=== PATIENT | female | born 1960 | race Caucasian/White ===

== ENCOUNTER 2023-09-26 10:32 | Observation (INO) ==
[2023-09-26 11:12] LABS: Hemoglobin 13.9 g/dl (12.0-16.0); Mean Corpuscular Hemoglobin 26.8 pg (25.0-34.0); Mean Corpuscular Hgb Conc 31.6 g/dL (32.0-36.0); Mean Corpuscular Volume 84.9 fL (80.0-100.0); Mean Platelet Volume 10.7 fL (9.4-12.4); Platelet Count 217 K/uL (130-400); RDW Coefficient of Variation 17.8 % (11.5-14.5); RDW Standard Deviation 53.7 fL (36.4-46.3); Red Blood Count 5.18 M/uL (4.20-5.40); White Blood Count 4.46 K/ul (4.8-10.8)
--- NOTE | 2023-09-26 11:12 | XRay Report ---
XR chest 1V portable HISTORY: stroke alert COMPARISON: None. FINDINGS: The lungs are clear. The cardiac silhouette is top normal in size. No pleural effusions. No pneumothorax. No acute fractures. There are metallic suture coils within the left upper quadrant. Pr ior cholecystectomy. IMPRESSION: No acute process. ACT 112: Negative or not required by law. Electronically signed by: James Hanks M.D. 09/26/2023 11:11 AM
[2023-09-26 11:18] LABS: Partial Thromboplastin Ratio 0.9; Partial Thromboplastin Time 24 Seconds (21-31); Prothrombin Time 10.6 Seconds (9.0-12.0)
[2023-09-26 11:26] LABS: Albumin Globulin Ratio 1.2 (0.9-2); Albumin Level 4.4 gm/dl (3.4-5.0); BUN Creatinine Ratio 15.7 (10-20); Bilirubin,Total 0.7 mg/dl (0.2-1.0); Calcium 9.8 mg/dl (8.6-10.3); Creatinine Clr Calc Pharmacy 92.8 ml/min; Est GFR (African American) 106.1 ml/min; Est GFR (Non-African American) 91.6 ml/min; Globulin 3.6 gm/dl (2.5-4.0); Potassium 4.4 mmol/L (3.5-5.1)
--- NOTE | 2023-09-26 11:34 | CT Scan Report ---
CT OF THE HEAD WITHOUT CONTRAST CLINICAL HISTORY: Neuro deficit, acute, stroke suspected COMPARISON STUDY: No previous studies for comparison. CT DOSE: 625.8 mGy.cm TECHNIQUE: Helical axial images of the head were obtained without IV contrast. Automated exposure con trol was utilized for the study. A dose lowering technique was utilized adhering to the principles o f ALARA. FINDINGS: No acute intracranial hemorrhage, midline shift or mass effect is present. The ventricular system is unremarkable. The basal cisterns are patent. No extra-axial collections are present. There are no findings to suggest acute dural sinus thrombosis or acute territorial infarct. No significant calvarial abnormalities are present. Visualized portions of the sinuses and mastoid air cells are jeremy ar. IMPRESSION: No acute intracranial findings. ACT 112: Negative or not required by law. Electronically signed by: Nixon Tang M.D. 09/26/2023 11:33 AM
--- NOTE | 2023-09-26 11:34 | Emergency Department Note ---
Impression & Plan Transient confusion, Right leg pain, High serum chloride ED Provider Note NAME: GILDARDO KEANE AGE: 62 SEX: F : 1960 ARRIVES VIA: Walk-In INFORMANT: Patient ED PROVIDER(S): Jostin Palacio DO CHIEF COMPLAINT: Confusion HPI: Patient is a 62-year-old female who presents to the ER for 2 episodes of confusion. Symptoms initially started 2 days ago when she had a headache and diffuse paresthesias. She was having trouble getting her words out and this lasted for about a minute to 2 and then resolved. She felt weak all over. Today while she was driving after leaving appointment at [facility] she can get a headache and then did not know where she was going and what she was doing. This resolved shortly and consequently she came in. She never had any focal weakness of her arms or legs. No chest pain or shortness of breath. No belly pain. No dysuria, urgency, or frequency. No other exacerbating or remitting factors. ADDITIONAL HISTORY OBTAINED: Per HPI Chronic Medical/Social Conditions Affecting Care: Per HPI PAST MEDICAL HISTORY:See Below PAST SURGICAL HISTORY:See Below FAMILY HISTORY:See Below SOCIAL HISTORY:See Below HOME MEDICATIONS:See Below ALLERGIES:See Below VITALS:See Below PHYSICAL EXAMINATION: GENERAL: Sitting up in bed, alert, well appearing, well nourished, no distress, non-toxic EYE EXAM: normal conjunctiva. PERRL and EOM's intact. OROPHARYNX: no exudate, no erythema, lips, buccal mucosa, and tongue normal and mucous membranes are moist NECK: supple, no nuchal rigidity, no adenopathy, non-tender LUNGS: Clear to auscultation. Normal chest wall mechanics HEART: no murmurs, S1 normal and S2 normal ABDOMEN: abdomen soft, non-tender, normo-active bowel sounds, no masses, no rebound or guarding. BACK: Back is symmetrical on inspection and there is no deformity, no midline tenderness, no CVA tenderness. SKIN: no rashes and no bruising UPPER EXTREMITIES: upper extremities are grossly normal. LOWER EXTREMITIES: No pitting edema. NEURO EXAM: Normal sensorium, cranial nerves II-XII intact, normal speech, no weakness of arms, weakness with flexion extension of bilateral hips 4/5 bilaterally which is chronic per. No drift. Finger to nose intact. Gross sensation intact. MEDICAL DECISION MAKING: Patient is a 62-year-old female who presents ER for above-stated complaint. IV was established blood work was obtained. Labs show mild leukopenia at 4.4 thousand. No significant anemia. INR was unremarkable. BMP with slightly elevated chloride at 108. LFTs bilirubin and magnesium was unremarkable. Troponin was negative. UA was unremarkable. CT angios of the head and neck were negative. Based on her symptoms discussed the case with the hospitalist for further evaluation management treatment. Consults/Care Managements Discussions: Per [facility] Triage Nursing notes reviewed. Limited review of prior medical records performed Vital Signs: reviewed and remarkable for hypertension Differential diagnosis: Differential Diagnosis includes but is not limited to ischemic Stroke, hemorrhagic stroke, bells palsy, mass, neoplasm, migraine headache, seizure, subarachnoid hemorrhage, TIA, and transient global amnesia. ER treatment provided: See below Diagnostics interpreted by me include EKG and cardiac monitoring as listed below: -Cardiac Monitoring: An order was placed for continuous cardiac monitoring. The monitor shows a rate of 70 with sinus rhythm. -ECG: Sinus rhythm rate 67 Normal axis No PVCs QTc 414 -Laboratory studies:Interpreted by me as stated above in MDM and shown below. Imaging studies: Xrays: As interpreted by me: Portable AP upright 1 view the chest shows no focal infiltrate CTs show: CT images of the head neck were negative. Venous Doppler was negative. Procedures:none Critical Care: None Past Med/Surg History Medical History (Updated 09/26/23 @ 17:44 by Jostin Palacio DO) Fibroids, submucosal Intestinal postoperative nonabsorption Pure hypercholesterolemia Obesity History of hepatitis A Chronic fatigue syndrome Degenerative disc disease, thoracic Vitamin B12 deficiency Vitamin D deficiency H/O gastric bypass B12 and iron supplementation Iron (Fe) deficiency anemia Surgical History (Updated 09/26/23 @ 16:05 by Becky Kearney PA-C) S/P gastric bypass S/P laparotomy S/P colon resection S/P cholecystectomy History of appendectomy History of hip replacement Bilateral hip replacements. Total knee replacement status Bilateral knee replacements. Family History Other Cancer Diabetes Stroke Social History Smoking Status: Never smoker Hx Alcohol Use: Yes Alcohol type: wine Hx Substance Use: Yes Prescribed Medications Comment: gummies for sleep, pain Non-Prescribed Medications: Marijuana Preferred Language: Ecuadorean Communication Ability: Effective Bat Person Required: No Beliefs That Will Affect Care: None Current Living Situation: Spouse Other Information That Helps Us Care for You: No Feels Safe at Home: Yes Safety Concerns: Feels Safe At This Time Allergies Allergies Allergy/AdvReac Type Severity Reaction Status Date / Time azithromycin Allergy Unknown Rash Verified 09/26/23 16:10 ciprofloxacin Allergy Unknown Unknown Verified 09/26/23 16:10 Sulfa (Sulfonamide Allergy Unknown Unknown Unverified 09/26/23 16:10 Antibiotics) Home Meds Home Medications Medication Instructions Recorded Confirmed semaglutide (weight loss) 2.4 2.4 mg subcut WK 09/26/23 09/26/23 mg/0.75 mL subcutaneous pen injector (Wegovy) sennosides 8.6 mg capsule (senna) 8.6 mg PO HS 09/26/23 09/26/23 Results & Data (ED) Vital Signs Vital Signs - 24 hr 09/26/23 10:36 09/26/23 11:30 09/26/23 12:20 Temperature 36.3 C L Temperature Source Temporal Artery Scan Pulse Rate 70 Pulse Rate [Left Finger] 62 Respiratory Rate 18 14 Respiratory Effort / Characteristics Non-Labored Respiratory Depth Normal Respiratory Pattern Regular Blood Pressure 154/104 H Blood Pressure [Left Arm] 132/95 Blood Pressure Mean 120 Blood Pressure Mean [Left Arm] 107 Blood Pressure Position [Left Arm] Sitting Pulse Oximetry 94 98 98 Oxygen Delivery Method Room Air Room Air Sepsis Recent Fever Within 48 Hours No Sepsis New/Unexplained Change in Mental Status N/A Sepsis Action Taken by Nursing No Action Required 09/26/23 12:26 Temperature Temperature Source Pulse Rate 68 Pulse Rate [Left Finger] Respiratory Rate Respiratory Effort / Characteristics Respiratory Depth Respiratory Pattern Blood Pressure Blood Pressure [Left Arm] Blood Pressure Mean Blood Pressure Mean [Left Arm] Blood Pressure Position [Left Arm] Pulse Oximetry Oxygen Delivery Method Sepsis Recent Fever Within 48 Hours Sepsis New/Unexplained Change in Mental Status Sepsis Action Taken by Nursing Laboratory Data 09/26/23 10:50 09/26/23 10:50 Lab Results 09/26/23 09/26/23 09/26/23 Range/Units 10:50 10:56 11:02 WBC 4.46 L (4.8-10.8) K/ul RBC 5.18 (4.20-5.40) M/uL Hgb 13.9 (12.0-16.0) g/dl POC Hgb 15.0 (12.0-16.0) g/dl Hct 44.0 (37.0-47.0) % POC Hct 44 (37-47) % MCV 84.9 (80.0-100.0) fL MCH 26.8 (25.0-34.0) pg MCHC 31.6 L (32.0-36.0) g/dL RDW Std Deviation 53.7 H (36.4-46.3) fL RDW Coeff of Brea 17.8 H (11.5-14.5) % Plt Count 217 (130-400) K/uL MPV 10.7 (9.4-12.4) fL PT 10.6 (9.0-12.0) Seconds INR 1.0 (0.9-1.1) APTT 24 (21-31) Seconds PTT Ratio 0.9 POC Sodium 140 (135-144) mmol/L Sodium 138 (136-145) mmol/L POC Potassium 4.4 (3.3-5.0) mmol/L Potassium 4.4 (3.5-5.1) mmol/L POC Chloride 106 (101-112) mmol/L Chloride 108 H (98-107) mmol/L Carbon Dioxide 24 (21-32) mmol/L POC Total CO2 24 (24-31) mmol/L Anion Gap 6 (3-11) POC Anion Gap 15.0 L (16-25) mmol/L POC BUN 11 (7-18) mg/dl BUN 11 (6-23) mg/dl Creatinine 0.70 (0.6-1.2) mg/dl POC Creatinine 0.7 (0.6-1.3) mg/dl Est Cr Clr Drug Dosing 92.8 ml/min Est GFR ( Amer) 106.1 ml/min Est GFR (Non-Af Amer) 91.6 ml/min BUN/Creatinine Ratio 15.7 (10-20) Glucose 78 (70-99(Fasting)) mg/dl POC Glucose (other) 75 (70-99) mg/dl Calcium 9.8 (8.6-10.3) mg/dl POC Ioniz Calcium Ryan 1.19 (1.12-1.32) mmol/l Magnesium 2.0 (1.7-2.4) mg/dl Total Bilirubin 0.7 (0.2-1.0) mg/dl AST 21 (13-39) U/L ALT 12 (7-52) U/L Alkaline Phosphatase 69 (34-104) U/L Troponin I High Sens 5.9 (0-14) pg/ml Total Protein 8.0 (6.0-8.3) gm/dl Albumin 4.4 (3.4-5.0) gm/dl Globulin 3.6 (2.5-4.0) gm/dl Albumin/Globulin Ratio 1.2 (0.9-2) Urine Color Yellow Urine Appearance Clear (Clear) Urine pH 5.0 (4.5-7.5) Ur Specific Hawi 1.007 (1.000-1.030) Urine Protein Negative (Negative) Urine Glucose (UA) Negative (Negative) Urine Ketones Negative (Negative) Urine Blood Negative (Negative) Urine Nitrite Negative (Negative) Urine Bilirubin Negative (Negative) Urine Urobilinogen Negative (Negative) Ur Leukocyte Esterase 1+ H (Negative) Urine WBC (Auto) 0-5 (0-5) /hpf Urine RBC (Auto) 0-2 (0-2) /hpf U Hyaline Cast (Auto) 0-2 (0-2) /lpf U Epithel Cells (Auto) 0-2 (0-2) /hpf Urine Bacteria (Auto) None Seen (None Seen) Administered Medications Discontinued Medications Acetaminophen (Acetaminophen 500 Mg Tab) 1,000 mg PO NOW STA Stop: 09/26/23 14:52 Last Admin: 09/26/23 15:35 Dose: 1,000 mg Documented By: KATHY Ioversol (Optiray 320 125ml) 120 ml IV ONCE ONE Stop: 09/26/23 12:17 Last Admin: 09/26/23 12:17 Dose: 120 ml Documented By: ANIRUDH Imaging Data Radiologist's Impression: Chest X-Ray 09/26/23 10:41 XR chest 1V portable HISTORY: stroke alert COMPARISON: None. FINDINGS: The lungs are clear. The cardiac silhouette is top normal in size. No pleural effusions. No pneumothorax. No acute fractures. There are metallic suture coils within the left upper quadrant. Prior cholecystectomy. IMPRESSION: No acute process. ACT 112: Negative or not required by law. Electronically signed by: James Hanks M.D. 09/26/2023 11:[address] 09/26/23 10:41 CT OF THE HEAD WITHOUT CONTRAST CLINICAL HISTORY: Neuro deficit, acute, stroke suspected COMPARISON STUDY: No previous studies for comparison. CT DOSE: 625.8 mGy.cm TECHNIQUE: Helical axial images of the head were obtained without IV contrast. Automated exposure control was utilized for the study. A dose lowering technique was utilized adhering to the principles of ALARA. FINDINGS: No acute intracranial hemorrhage, midline shift or mass effect is present. The ventricular system is unremarkable. The basal cisterns are patent. No extra-axial collections are present. There are no findings to suggest acute dural sinus thrombosis or acute territorial infarct. No significant calvarial abnormalities are present. Visualized portions of the sinuses and mastoid air cells are clear. IMPRESSION: No acute intracranial findings. ACT 112: Negative or not required by law. Electronically signed by: Nixon Tang M.D. 09/26/2023 11:33 AM Neck CTA 09/26/23 11:30 CT angio neck with con CLINICAL HISTORY: Expressive aphasia TECHNIQUE: CT angiography of the neck was performed following intravenous administration of iodinated contrast. Coronal and sagittal MIPS were obtained from the axial data set and were submitted for review. Automated dose lowering techniques and/or adjustment according to patient size were utilized for this examination. All measurements were calculated based on NASCET criteria. CT DOSE: 389.61 mGy.cm Comparison: None available at the time of this dictation. FINDINGS: Lungs and soft tissues are unremarkable. CTA Neck: A 3 vessel aortic arch is shown. There is no significant atherosclerotic plaque in the aortic arch or the origins of the innominate, left common carotid, and left subclavian arteries. The common carotid, external carotid, cervical segments of the internal carotid arteries, and the cervical segments of the vertebral arteries are patent without hemodynamically significant stenosis. The left vertebral artery is dominant. IMPRESSION: No occlusion, hemodynamically significant stenosis, or dissection in the major cervical arteries. Assessment of stenosis of the internal carotid arteries is based on NASCET criteria. ACT 112: Negative or not required by law. Electronically signed by: Torey Rico M.D. 09/26/2023 12:47 PM Head CTA 09/26/23 11:31 CTA ANGIOGRAPHY OF THE HEAD CLINICAL HISTORY: Expressive aphasia. COMPARISON STUDY: No previous studies for comparison. TECHNIQUE: Helical axial images of the head were obtained following uneventful intravenous administration of 120 cc of Optiray. Sagittal and coronal reconstructions were viewed as well as maximal intensity projections on an independent 3-D workstation. Automated exposure control was utilized for the study. A dose lowering technique was utilized adhering to the principles of ALARA. FINDINGS: No acute intracranial hemorrhage is identified on this contrast enhanced exam. Ventricular system is normal. Basal cisterns are patent. There are no extra-axial collections. The bilateral M1, M2, A1 and A2 segments are patent. There is no intracranial aneurysm. No vessel occlusion is identified within the anterior posterior circulation. There is mild irregularity of the left P2 segment. IMPRESSION: No large vessel occlusion. No intracranial aneurysm. ACT 112: Negative or not required by law. Electronically signed by: Nixon Tang M.D. 09/26/2023 12:36 PM Venous Doppler Study 09/26/23 13:06 RIGHT LOWER EXTREMITY VENOUS DOPPLER HISTORY: Right leg swelling. COMPARISON STUDY: None. FINDINGS: There is normal compressibility, flow, and augmentation within the right lower extremity deep venous system. IMPRESSION: No DVT within the right lower extremity ACT 112: Negative or not required by law. Electronically signed by: James Hanks M.D. 09/26/2023 2:13 PM Discharge Plan Visit Data Chief Complaint: Neuro Symptoms/Deficit Stated Complaint: MEMORY LOSS, POSSIBLE TIA, PAIN/LEG SWELLING ED Provider: Jostin Palacio Discharge Problem: Transient confusion, Right leg pain, High serum chloride Patient Disposition: Admitted As Inpatient Discharge Instructions Interventions: ED Discharge Assessment Last Done: 09/26/23 16:11
[2023-09-26 11:58] LABS: Troponin I High Sensitivity 5.9 pg/ml (0-14)
[2023-09-26 12:03] LABS: Appearance Urine Clear (Clear); Bacteria Urine Automated None Seen (None Seen); Bilirubin Urine Negative (Negative); Blood Urine Negative (Negative); Cast Urine Automated 0-2 /lpf (0-2); Color Urine Yellow; Epithelial Cell Urine Auto 0-2 /hpf (0-2); Glucose Urine UA Negative (Negative); Ketones Urine Negative (Negative); Leukocyte Esterase Urine 1+ (Negative); Nitrite Urine Negative (Negative); Protein Urine Negative (Negative); RBC Urine Automated 0-2 /hpf (0-2); Specific Gravity Urine 1.007 (1.000-1.030); Urobilinogen Urine Negative (Negative); WBC Urine Automated 0-5 /hpf (0-5)
[2023-09-26] MEDS: OPTIRAY 320 125ml IV ONE (12:17)
--- NOTE | 2023-09-26 12:39 | CT Scan Report ---
CTA ANGIOGRAPHY OF THE HEAD CLINICAL HISTORY: Expressive aphasia. COMPARISON STUDY: No previous studies for comparison. TECHNIQUE: Helical axial images of the head were obtained following uneventful intravenous administr ation of 120 cc of Optiray. Sagittal and coronal reconstructions were viewed as well as maximal inten sity projections on an independent 3-D workstation. Automated exposure control was utilized for the study. A dose lowering technique was utilized adhering to the principles of ALARA. FINDINGS: No acute intracranial hemorrhage is identified on this contrast enhanced exam. Ventricular system is normal. Basal cisterns are patent. There are no extra-axial collections. The bilateral M1, M2, A1 and A2 segments are patent. There is no intracranial aneurysm. No vessel occlusion is identifi ed within the anterior posterior circulation. There is mild irregularity of the left P2 segment. IMPRESSION: No large vessel occlusion. No intracranial aneurysm. ACT 112: Negative or not required by law. Electronically signed by: Nixon Tang M.D. 09/26/2023 12:36 PM
--- NOTE | 2023-09-26 12:48 | CT Scan Report ---
CT angio neck with con CLINICAL HISTORY: Expressive aphasia TECHNIQUE: CT angiography of the neck was performed following intravenous administration of iodinate d contrast. Coronal and sagittal MIPS were obtained from the axial data set and were submitted for re view. Automated dose lowering techniques and/or adjustment according to patient size were utilized f or this examination. All measurements were calculated based on NASCET criteria. CT DOSE: 389.61 mGy.cm Comparison: None available at the time of this dictation. FINDINGS: Lungs and soft tissues are unremarkable. CTA Neck: A 3 vessel aortic arch is shown. There is no significant atherosclerotic plaque in the aor tic arch or the origins of the innominate, left common carotid, and left subclavian arteries. The co mmon carotid, external carotid, cervical segments of the internal carotid arteries, and the cervical segments of the vertebral arteries are patent without hemodynamically significant stenosis. The left vertebral artery is dominant. IMPRESSION: No occlusion, hemodynamically significant stenosis, or dissection in the major cervical arteries. Assessment of stenosis of the internal carotid arteries is based on NASCET criteria. ACT 112: Negative or not required by law. Electronically signed by: Torey Rico M.D. 09/26/2023 12:47 PM
--- NOTE | 2023-09-26 14:06 | History & Physical Report ---
Date of Service September 26, 2023 Assessment & Plan (1) Transient confusion: Plan: Jimi Foster is a 62y/o F with PMHx of pure hypercholesterolemia, vitamin D deficiency/vitamin B12 deficiency s/p gastric bypass, intestinal postoperative nonabsorption syndrome, iron deficiency anemia, chronic fatigue syndrome, degenerative disc disease, bilateral hip/knee replacements, medical marijuana use and lymphedema who presented to the ED this morning for evaluation of new- onset confusion. Neck CTA showed no occlusion, stenosis or dissection in the major cervical arteries. Head CTA showed no large vessel occlusion and no intracranial hemorrhage. Head CT was benign, and chest x-ray displayed no acute process. -Order MRI brain wo/w contrast to better evaluate for stroke vs. ?MS -Order echo w/ bubble study -TSH w/ reflex T4 -Repeat CBC and BMP in AM -Order lyme panel -PT/OT consult -Consult neurology (2) Right leg pain: Plan: -Right lower extremity venous doppler displayed no evidence of DVT. -Topical Voltaren, Tylenol for mild/moderate pain -Oxycodone for severe pain -Order vit B12 in AM d/t hx of gastric bypass and B12 deficiency (3) S/P gastric bypass: Plan: -Remote hx of gastric bypass, recently received iron infusions with stable Hgb -B12 level pending for AM as above -On Wegovy for weight maintenance, hold while admitted DVT Prophylaxis: Heparin Code Status: Full Code PCP: Amari Quesada PA-C Dispo: Observation in PCU/Telemetry Patient seen in collaboration with Dr. Marshall. Please see addendum. I spent a total of 75 minutes coordinating, documenting, and providing care for this patient excluding time spent in the performance of separately billed services. This included personally reviewing all current laboratories and imaging studies, medical reconciliation, outpatient chart review and discussion with specialists. History of Present Illness Chief Complaint: Confusion Primary Care Provider: Amari Quesada PA-C Jimi Foster is a 62y/o F with PMHx of pure hypercholesterolemia, vitamin D deficiency/vitamin B12 deficiency s/p gastric bypass, intestinal postoperative nonabsorption syndrome, iron deficiency anemia, chronic fatigue syndrome, degenerative disc disease, bilateral hip/knee replacements, medical marijuana use and lymphedema who presented to the ED this morning for evaluation of new- onset confusion. History obtained from patient, and associated ED/PCP/specialty records.Patient states that she was leaving an [facility] appointment this morning, and suddenly became confused whilst driving. Patient mentions that she was already planning on coming to the ED after her appointment in order to have her right leg examined d/t concern of a potential DVT. Patient reports that she has had right leg pain x 3 days, and that the pain is now localized to her right rodriges region. Patient mentions that the pain was previously radiating up from her right rodriges to her right anterior thigh, but has since been centralized to her right rodriges region for the past day. She describes this pain as burning in quality, and states that her right calf region has been swollen for the past 3 days as well. However, she denies any associated erythema or warmness to touch of her right lower leg. In regard to her confusion, patient states that she was feeling fine during her appointment and suddenly became confused while driving. She reports that she didn't know where she was going or what she was exactly doing during this momentary episode of generalized confusion; however, the epi sode quickly resolved and she was able to navigate accordingly to the hospital. Patient states that she had a previous neurological episode last (09/20) where she was sitting talking to her and suddenly felt "off." She describes rapid onset of a headache with associated scalp paraesthesias and generalized weakness lasting approximately 90 minutes. Patient states that she also had one episode of expressive aphasia during this "episode," and subsequently had to lie down in bed for the symptoms to resolve themselves w/out any medical or pharmaceutical intervention. Patient denies seeking any medical consultation at that time. No other neurological deficits were noted during that episode either, per the patient. She currently endorses a headache, but denies any vision changes or episodes of N/V. Patient does mention chronic constipation issues [takes senna on a daily basis], but denies any hematochezia or melena. Patient also denies any urinary issues, abdominal pain/discomfort and back pain. Patient endorses no issues with ambulation at home, and denies any recent falls. Patient does use medical marijuana, in the form of gummies, to help her sleep. Patient denies any recent head trauma or illnesses. Allergies Allergy/AdvReac Type Severity Reaction Status Date / Time azithromycin Allergy Unknown Rash Verified 09/26/23 18:59 ciprofloxacin Allergy Unknown Unknown Verified 09/26/23 18:59 Sulfa (Sulfonamide Allergy Unknown Unknown Unverified 09/26/23 18:59 Antibiotics) Home Medications Medication Instructions Recorded Confirmed Type semaglutide (weight loss) 2.4 2.4 mg subcut WK 09/26/23 09/26/23 History mg/0.75 mL subcutaneous pen injector (Wegovy) sennosides 8.6 mg capsule (senna) 8.6 mg PO HS 09/26/23 09/26/23 History Past Med/Surg History Medical History Fibroids, submucosal Intestinal postoperative nonabsorption Pure hypercholesterolemia Obesity History of hepatitis A Chronic fatigue syndrome Degenerative disc disease, thoracic Vitamin B12 deficiency Vitamin D deficiency H/O gastric bypass B12 and iron supplementation Iron (Fe) deficiency anemia Surgical History S/P gastric bypass S/P laparotomy S/P colon resection S/P cholecystectomy History of appendectomy History of hip replacement Bilateral hip replacements. Total knee replacement status Bilateral knee replacements. Family History Other Cancer Diabetes Stroke Social History Smoking Status: Never smoker Hx Alcohol Use: Yes Alcohol type: wine Hx Substance Use: Yes Prescribed Medications Comment: gummies for sleep, pain Non-Prescribed Medications: Marijuana Preferred Language: Kazakh Communication Ability: Effective Morning Nanny Required: No Beliefs That Will Affect Care: None Current Living Situation: Spouse Other Information That Helps Us Care for You: No Feels Safe at Home: Yes Safety Concerns: Feels Safe At This Time Review of Systems Review of Systems: At least ten systems reviewed and negative, except as noted in the HPI. Physical Exam Physical Exam: General Appearance: Sitting up in bed, alert. Well-appearing, no acute distress. Head: Normocephalic, atraumatic. Eyes: Normal inspection, PERRL, conjunctivae normal, anicteric sclerae. ENT: External ear and nose normal, oropharynx normal. Neck: Normal visual inspection, trachea midline, no thyromegaly. Respiratory: Normal respiratory effort, lungs clear to auscultation, no wheeze, rales, rhonchi. No accessory muscle use. Cardiovascular: Regular rate, rhythm, no murmur, normal peripheral pulses, no BLE edema. Vessels: No JVD. Chest: Normal inspection of chest. Abdomen/GI: Normal bowel sounds, soft, nontender, no hepatosplenomegaly. No rebound or guarding. Extremities/Musculoskeletal: No cyanosis or clubbing, extremities motor strength 5/5. Lymphedema present in bilateral lower extremities. Tenderness to palpation of R anterior rodriges. Neurologic: PERRL, EOMI, accommodation nl, no face palsy, no dysarthria, CN's II-XI intact bilaterally and moves all extremities. Psychiatric: A+O to person/place and situation (difficulty finding month). Euthymic affect. Skin: No rashes, no bruises warm/dry. Results & Data Results & Data Vital Signs (Past 12 Hours) Vital Signs Temp Pulse Pulse Resp BP BP Pulse Ox 09/26/23 12:26 68 09/26/23 12:20 62 14 132/95 98 09/26/23 11:30 98 09/26/23 10:36 36.3 C L 70 18 154/104 H 94 O2 Del Method 09/26/23 12:26 09/26/23 12:20 09/26/23 11:30 Room Air 09/26/23 10:36 Room Air Laboratory Results Short CBC 09/26/23 Range/Units 10:50 WBC 4.46 L (4.8-10.8) K/ul Hgb 13.9 (12.0-16.0) g/dl Hct 44.0 (37.0-47.0) % Plt Count 217 (130-400) K/uL BMP 09/26/23 10:50 Sodium 138 Potassium 4.4 Chloride 108 H Carbon Dioxide 24 BUN 11 Creatinine 0.70 Glucose 78 Calcium 9.8 Liver Function 09/26/23 Range/Units 10:50 Total Bilirubin 0.7 (0.2-1.0) mg/dl AST 21 (13-39) U/L ALT 12 (7-52) U/L Alkaline Phosphatase 69 (34-104) U/L Albumin 4.4 (3.4-5.0) gm/dl Urine 09/26/23 Range/Units 11:02 Urine Color Yellow Urine Appearance Clear (Clear) Urine pH 5.0 (4.5-7.5) Ur Specific [place] 1.007 (1.000-1.030) Urine Protein Negative (Negative) Urine Glucose (UA) Negative (Negative) Diagnostic Findings Chest X-Ray 09/26/23 10:41 XR chest 1V portable HISTORY: stroke alert COMPARISON: None. FINDINGS: The lungs are clear. The cardiac silhouette is top normal in size. No pleural effusions. No pneumothorax. No acute fractures. There are metallic suture coils within the left upper quadrant. Prior cholecystectomy. IMPRESSION: No acute process. ACT 112: Negative or not required by law. Electronically signed by: James Hanks M.D. 09/26/2023 11:[address] 09/26/23 10:41 CT OF THE HEAD WITHOUT CONTRAST CLINICAL HISTORY: Neuro deficit, acute, stroke suspected COMPARISON STUDY: No previous studies for comparison. CT DOSE: 625.8 mGy.cm TECHNIQUE: Helical axial images of the head were obtained without IV contrast. Automated exposure control was utilized for the study. A dose lowering technique was utilized adhering to the principles of ALARA. FINDINGS: No acute intracranial hemorrhage, midline shift or mass effect is present. The ventricular system is unremarkable. The basal cisterns are patent. No extra-axial collections are present. There are no findings to suggest acute dural sinus thrombosis or acute territorial infarct. No significant calvarial abnormalities are present. Visualized portions of the sinuses and mastoid air cells are clear. IMPRESSION: No acute intracranial findings. ACT 112: Negative or not required by law. Electronically signed by: Nixon Tang M.D. 09/26/2023 11:33 AM Neck CTA 09/26/23 11:30 CT angio neck with con CLINICAL HISTORY: Expressive aphasia TECHNIQUE: CT angiography of the neck was performed following intravenous administration of iodinated contrast. Coronal and sagittal MIPS were obtained from the axial data set and were submitted for review. Automated dose lowering techniques and/or adjustment according to patient size were utilized for this examination. All measurements were calculated based on NASCET criteria. CT DOSE: 389.61 mGy.cm Comparison: None available at the time of this dictation. FINDINGS: Lungs and soft tissues are unremarkable. CTA Neck: A 3 vessel aortic arch is shown. There is no significant atherosclerotic plaque in the aortic arch or the origins of the innominate, left common carotid, and left subclavian arteries. The common carotid, external carotid, cervical segments of the internal carotid arteries, and the cervical segments of the vertebral arteries are patent without hemodynamically significant stenosis. The left vertebral artery is dominant. IMPRESSION: No occlusion, hemodynamically significant stenosis, or dissection in the major cervical arteries. Assessment of stenosis of the internal carotid arteries is based on NASCET criteria. ACT 112: Negative or not required by law. Electronically signed by: Torey Rico M.D. 09/26/2023 12:47 PM Head CTA 09/26/23 11:31 CTA ANGIOGRAPHY OF THE HEAD CLINICAL HISTORY: Expressive aphasia. COMPARISON STUDY: No previous studies for comparison. TECHNIQUE: Helical axial images of the head were obtained following uneventful intravenous administration of 120 cc of Optiray. Sagittal and coronal reconstructions were viewed as well as maximal intensity projections on an independent 3-D workstation. Automated exposure control was utilized for the study. A dose lowering technique was utilized adhering to the principles of ALARA. FINDINGS: No acute intracranial hemorrhage is identified on this contrast enhanced exam. Ventricular system is normal. Basal cisterns are patent. There are no extra-axial collections. The bilateral M1, M2, A1 and A2 segments are patent. There is no intracranial aneurysm. No vessel occlusion is identified within the anterior posterior circulation. There is mild irregularity of the left P2 segment. IMPRESSION: No large vessel occlusion. No intracranial aneurysm. ACT 112: Negative or not required by law. Electronically signed by: Nixon Tang M.D. 09/26/2023 12:36 PM Venous Doppler Study 09/26/23 13:06 RIGHT LOWER EXTREMITY VENOUS DOPPLER HISTORY: Right leg swelling. COMPARISON STUDY: None. FINDINGS: There is normal compressibility, flow, and augmentation within the right lower extremity deep venous system. IMPRESSION: No DVT within the right lower extremity ACT 112: Negative or not required by law. Electronically signed by: James Hanks M.D. 09/26/2023 2:13 PM Medications Administered Discontinued Medications Acetaminophen (Acetaminophen 500 Mg Tab) 1,000 mg PO NOW STA Stop: 09/26/23 14:52 Last Admin: 09/26/23 15:35 Dose: 1,000 mg Documented By: CEK Ioversol (Optiray 320 125ml) 120 ml IV ONCE ONE Stop: 09/26/23 12:17 Last Admin: 09/26/23 12:17 Dose: 120 ml Documented By: ANIRUDH ECG Additional Comments: Per my interpretation, EKG showed NSR with HR of 67bpm and QRS duration of 80ms. Code Status & VTE Plan Code Status Full Code VTE Prophylaxis Plan VTE Prophylaxis will be ordered: Yes Supervising Physician Co-Signing Physician Notes I have seen and discussed the case with the collaborating advanced practitioner. I agree with the above H&P. I have reviewed and confirmed the patients medical history, the findings on physical examination, and the patients diagnosis and treatment plan with Caio LU and agree with the information documented. In short, Ms. Foster is a 62 year old woman with history of gastric bypass, chronic fatigue syndrome, HLD, b12 deficiency who is admitted for concerns of transient neurologic symptoms, marked by paraesthesias and confusion. Patient reports episode 1 week earlier with word finding difficulty and scalp "sensations"--this made her anxious and lasted for 1.5 hours, eventually self- limited. She then notes today feeling hyperalgesia along right lower extremity, however upon coming to the ED for the RLE pain, she felt confused and was answering questions inappropriately--again self-limited after about 1-2 hours. She denies vision changes or other neurologic issues. She reports slight band like headache on exam. 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 Patient has lymphedema in which she states only thighs experience edema. GENERAL APPEARANCE: AxOx4, generally well-appearing female no acute distress. HEENT: NC, AT. MMM. EOMI, clear conjunctiva, oropharynx clear. NECK: Supple without lymphadenopathy. No stiffness or restricted ROM. HEART: Normal rate and regular rhythm, normal S1/S1, no m/r/g LUNGS: CTAB, moving air well. No crackles or wheezes are heard. ABDOMEN: Soft, nontender, nondistended with good bowel sounds heard. EXTREMITIES: Without cyanosis, clubbing . nonpitting edema of BLE. Notably tender RLE to light touch along lateral LE tracking across to dorsum of foot NEUROLOGICAL: Grossly nonfocal. Alert and oriented, moving all 4 extremities. CN not formally tested but appear grossly intact. Skin: Warm and dry without any rash. #Transient neurologic symptoms -given concern of "word-finding" and dynamic nature of symptoms reported, will obtain MRI w/ con to r/o MS or other demyelinating process -History of bypass predisposes to neuropathies, will obtain b12/folate levels TSH, echo, tele neuro consult #Chronic pain medical marijuana #RLE swelling -Doppler negative rest of plan as above I spent a total of 35 minutes coordinating, documenting, and providing care for this patient excluding time spent in the performance of separately billed services. All of the aforementioned completed outside of collaborating with the assigned advanced practitioner for a full treatment plan. I have reviewed the advanced practitioner's documentation, and I agree with, and take responsibility for the plan of care
--- NOTE | 2023-09-26 14:15 | Ultrasound Report ---
RIGHT LOWER EXTREMITY VENOUS DOPPLER HISTORY: Right leg swelling. COMPARISON STUDY: None. FINDINGS: There is normal compressibility, flow, and augmentation within the right lower extremity de ep venous system. IMPRESSION: No DVT within the right lower extremity ACT 112: Negative or not required by law. Electronically signed by: James Hanks M.D. 09/26/2023 2:13 PM
[2023-09-26 14:18] LABS: iSTAT Creatinine 0.7 mg/dl (0.6-1.3); iSTAT Ionized Calcium 1.19 mmol/l (1.12-1.32); iSTAT Potassium 4.4 mmol/L (3.3-5.0)
[2023-09-26] MEDS ORDERED: DICLOFENAC SOD 1% GEL 100 GM TUBE EXT PRN (14:51)
[2023-09-26] MEDS: ACETAMINOPHEN 500 MG TAB PO STA (15:35)
[2023-09-26] MEDS ORDERED: ONDANSETRON INJ 2 MG/ML 2 ML VIAL IV PRN (16:05)
[2023-09-26] MEDS ORDERED: POLYETHYLENE (MIRALAX) 17 GM PACK PO PRN (16:05)
[2023-09-26] MEDS ORDERED: PHARMACIST DISCHARGE MED REC CONSULT PRN (16:05)
[2023-09-26] MEDS ORDERED: DOCUSATE SODIUM/SENNA 50/8.6MG TAB PO PRN (16:05)
[2023-09-26] MEDS: HEPARIN SOD 5,000 UNIT/0.5 ML VIAL SQ SCH (18:08)
[2023-09-26] MEDS: LORazepam 1 MG in SYRINGE 0.5 ML IV ONE (19:35)
[2023-09-26] MEDS: GADOBUTROL 65ML VIAL IV ONE (20:13)
[2023-09-26] MEDS: ACETAMINOPHEN 325 MG TAB PO PRN (21:20)
[2023-09-26] MEDS: SENNA 8.6 MG TAB PO SCH (21:22)
--- NOTE | 2023-09-26 21:32 | Magnetic Resonance Report ---
Exam(s): MRI HEAD W/WO Contrast IV Amt: 8.8 CC MAT EXAM: MR Head Without and With Intravenous Contrast CLINICAL HISTORY: Reason for exam: Confusion, head parasthesias, expressive aphasia. TECHNIQUE: Magnetic resonance images of the head/brain without and with intravenous contrast in multiple planes. CONTRAST: Patient received 8.8 CC MAT of IV contrast COMPARISON: CT dated 09/26/2023. FINDINGS: Brain: Scattered small punctate foci of T2 hyperintensity seen on FLAIR and T2 sequences within the deep white matter with trace signal within the periventricular region most compatible with sequela of chronic headaches versus nonspecific minor microangiopathic disease. No restricted diffusion abnormality to suggest acute stroke. No intracranial hemorrhage. No intracranial or extra-axial enhancing lesion. Ventricles: Unremarkable. No ventriculomegaly. Bones/joints: Unremarkable. No acute fracture. Sinuses: Unremarkable as visualized. No acute sinusitis. Mastoid air cells: Unremarkable as visualized. No mastoid effusion. Orbits: Unremarkable as visualized. IMPRESSION: 1. Minor white matter changes may indicate sequela of chronic headaches or early/minimal microangiopathic disease. 2. No acute stroke or intracranial hemorrhage. No intracranial enhancing lesion. Electronically signed by: Zabrina Amador MD 09/26/23 21:31 PM
--- NOTE | 2023-09-26 22:20 | Communication Note ---
Date of Service: September 26, 2023
[2023-09-26] MEDS: oxyCODONE HCL IR 5 MG TAB (IMMEDIATE RELEASE) PO PRN (22:30)
--- NOTE | 2023-09-27 04:34 | Electrocardiogram Report ---
Test Reason : Blood Pressure : / mmHG Vent. Rate : 067 BPM Atrial Rate : 067 BPM P-R Int : 166 ms QRS Dur : 080 ms QT Int : 392 ms P-R-T Axes : 065 -19 033 degrees QTc Int : 414 ms Normal sinus rhythm No previous ECG available for comparison Confirmed by Clyde Akbar ([id number]) on 09/27/2023 4:33:52 AM Referred By: Confirmed By:Clyde Akbar
[2023-09-27 06:19] LABS: Hematocrit (blood only) 38.8 % (37.0-47.0); Hemoglobin 12.3 g/dl (12.0-16.0); Mean Corpuscular Hemoglobin 27.2 pg (25.0-34.0); Mean Corpuscular Hgb Conc 31.7 g/dL (32.0-36.0); Mean Corpuscular Volume 85.7 fL (80.0-100.0); Mean Platelet Volume 10.7 fL (9.4-12.4); Platelet Count 182 K/uL (130-400); RDW Coefficient of Variation 17.6 % (11.5-14.5); RDW Standard Deviation 54.1 fL (36.4-46.3); Red Blood Count 4.53 M/uL (4.20-5.40); White Blood Count 4.44 K/ul (4.8-10.8)
[2023-09-27 06:41] LABS: BUN Creatinine Ratio 16.7 (10-20); Calcium 8.3 mg/dl (8.6-10.3); Chol HDL Ratio 2.1 (0-5); Est GFR (African American) 102.6 ml/min; Est GFR (Non-African American) 88.5 ml/min; Potassium 3.8 mmol/L (3.5-5.1)
[2023-09-27 06:54] LABS: Thyroid Stimulating Hormone 4.692 uIu/ml (0.300-4.500)
[2023-09-27 06:57] LABS: Folate (Folic Acid),Ser orPlas 19.98 ng/ml (>5.38)
[2023-09-27 07:29] LABS: T4 Free Thyroxine 1.01 ng/dl (0.61-1.60)
[2023-09-27 07:53] LABS: Estimated Average Glucose 100 mg/dl; Hemoglobin A1C 5.1 % (4.5-5.6)
[2023-09-27] MEDS: CAPSAICIN CR 0.075% 60 GM TUBE EXT SCH (13:58)
[2023-09-27] MEDS ORDERED: DICLOFENAC SOD 1% GEL 100 GM TUBE EXT SCH (14:00)
--- NOTE | 2023-09-27 14:13 | Neurology Consultation ---
Date of Consultation September 27, 2023 Assessment & Plan (1) Transient confusion: Transient episodes of unawareness Recommend continue frequent neurological assessments Obtain stat CT brain without contrast for any acute neurological decline Recommend obtain EEG Provide seizure precautions Utilize benzodiazepines emergently for any breakthrough clinical seizure like activity Metabolic workup should include hgbA1c, fasting lipids, homocysteine, TSH, D Dimer Continue to monitor renal and hepatic function, keep euvolemic Continue to monitor electrolytes and replenish PRN Agree with continued vitamin supplementation Continue to monitor/control blood pressure & blood glucose Continue to monitor telemetry closely Okay from neurology perspective for VTE prophylaxis No driving per [place] state law Follow up with outpatient Neurology Telehealth Consultation Telehealth Information Telehealth Information: I performed this visit using a real-time telehealth connection between my location and the patients location ([facility]). After connecting through interactive tele-video, patient was identified by name and date of and/or wristband check.Patient (or authorized healthcare manufacturers representative) was informed that this was a telemedicine visit and it was being conducted confidentially over secure lines. My office door was closed and no one else was present in the room with me.Patient (or authorized healthcare manufacturers representative) provided consent to proceed with the visit, expressed an understanding of privacy and security of the telemedicine visit, and gave permission to have a hospital manufacturers representative in the room in order to assist with the visit and to conduct portions of the visit, as needed. I informed the patient (or authorized healthcare manufacturers representative) that I reviewed their record and presented the opportunity for them to ask any questions regarding the visit today. The patient agreed to participate. History of Present Illness Reason for Consultation: Confusion Requesting Physician: Dr. Ramirez Attending Physician: Jaziel Ramirez MD History of Present Illness 62yo female presented due to complain of right leg pain. She reports having an episode of difficulty thinking about where she was and where she was going while driving. There is reported event of her not answering/stating her name and properly when undergoing registration. She reports another episode of this happening last . States her was leaving and suddenly she felt immense sensory changes as if she was high on marijuana and could not speak. She said she went to bed for a couple of hours and the feelings went away. She reports using PO marijuana nightly for sleep. She has a history of undergoing gastric bypass many years ago but states she is not always adherent with following up for vitamin B injections. She is on Wegovy for weight maintenance. Reports no changes in daily sleep or activity habits. No reported changes in medication recently. I have performed televideo consultation. She is alert & oriented; able to answer all questions appropriately, name objects on televideo monitor, repeat phrases and perform complex/embedded commands without deficit. Neurological exam is non lateralizing/nonfocal in terms of motor strength and coordination. NIHSS=0. She has undergone MRI brain with and without contrast unrevealing for causative pathology. I have informed her of no driving per [place] state law following episode of loss of awareness. She was able to verbalize understanding. She expressed her concern for her business and life, states she needs to drive. After I again explained it is state law and she could injure herself or others she again verbalized understanding. Communicated directly with primary/hospitalist team Dr. Ramirez regarding need for DL form to be submitted. Allergies Allergy/AdvReac Type Severity Reaction Status Date / Time azithromycin Allergy Unknown Rash Verified 09/26/23 18:59 ciprofloxacin Allergy Unknown Unknown Verified 09/26/23 18:59 Sulfa (Sulfonamide Allergy Unknown Unknown Unverified 09/26/23 18:59 Antibiotics) Home Medications Medication Instructions Recorded Confirmed Type semaglutide (weight loss) 2.4 2.4 mg subcut WK 09/26/23 09/26/23 History mg/0.75 mL subcutaneous pen injector (Wegovy) sennosides 8.6 mg capsule (senna) 8.6 mg PO HS 09/26/23 09/26/23 History Patient History Medical History Fibroids, submucosal Intestinal postoperative nonabsorption Pure hypercholesterolemia Obesity History of hepatitis A Chronic fatigue syndrome Degenerative disc disease, thoracic Vitamin B12 deficiency Vitamin D deficiency H/O gastric bypass B12 and iron supplementation Iron (Fe) deficiency anemia Surgical History S/P gastric bypass S/P laparotomy S/P colon resection S/P cholecystectomy History of appendectomy History of hip replacement Bilateral hip replacements. Total knee replacement status Bilateral knee replacements. Family History Other Cancer Diabetes Stroke Social History Smoking Status: Never smoker Hx Alcohol Use: Yes Alcohol type: wine Hx Substance Use: Yes Prescribed Medications Comment: gummies for sleep, pain Non-Prescribed Medications: Marijuana Preferred Language: Georgian Communication Ability: Effective Last Chalker Required: No Beliefs That Will Affect Care: None Current Living Situation: Spouse Other Information That Helps Us Care for You: No Feels Safe at Home: Yes Safety Concerns: Feels Safe At This Time Assistive Devices: None Physical Exam Neurological Examination: Mental Status: Awake and alert. Oriented to person, place, and time. Fluency naming repetition and comprehension appear grossly intact. Affect remains appropriate. CN testing: I: Denies changes in ability to smell II:Reports no changes in visual acuity III/IV/: No evidence of gaze preference, hippus, nystagmus or roving eye movements V: Facial sensation reportedly grossly intact to light touch bilaterally VII: Facial movements appear without evidence of asymmetry VIII: Hearing appears grossly intact to loud voice bilaterally IX/X: Palate appears to elevate symmetrically XI: Shoulder shrug appears symmetric/ grossly intact bilaterally XII: Tongue protrudes midline without evidence of biting Motor exam: Strength appears grossly intact/symmetric in all extremities Sensory: Sensation is reportedly grossly intact throughout Coordination: Finger to nose and heel to rodriges were intact. No apparent evidence of dysmetria or dysdiadochokinesia Reflexes: Deferred Gait: Deferred Results & Data Vital Signs (Past 12 Hours) Vital Signs Temp Pulse Pulse Resp BP Pulse Ox O2 Del Method 09/27/23 12:00 36.7 C 77 18 128/70 96 Room Air 09/27/23 08:34 36.6 C 74 20 114/72 93 Room Air 09/27/23 08:00 79 09/27/23 02:35 36.5 C 68 18 116/80 98 Room Air Laboratory Results Abnormal lab results 09/26/23 09/27/23 Range/Units 10:56 05:22 WBC 4.44 L (4.8-10.8) K/ul MCHC 31.7 L (32.0-36.0) g/dL RDW Std Deviation 54.1 H (36.4-46.3) fL RDW Coeff of Brea 17.6 H (11.5-14.5) % Chloride 109 H (98-107) mmol/L POC Anion Gap 15.0 L (16-25) mmol/L Calcium 8.3 L (8.6-10.3) mg/dl TSH 4.692 H (0.300-4.500) uIu/ml Diagnostic Findings Venous Doppler Study 09/26/23 13:06 RIGHT LOWER EXTREMITY VENOUS DOPPLER HISTORY: Right leg swelling. COMPARISON STUDY: None. FINDINGS: There is normal compressibility, flow, and augmentation within the right lower extremity deep venous system. IMPRESSION: No DVT within the right lower extremity ACT 112: Negative or not required by law. Electronically signed by: James Hanks M.D. 09/26/2023 2:13 PM Brain MRI 09/26/23 16:05 Exam(s): MRI HEAD W/WO Contrast IV Amt: 8.8 CC MAT EXAM: MR Head Without and With Intravenous Contrast CLINICAL HISTORY: Reason for exam: Confusion, head parasthesias, expressive aphasia. TECHNIQUE: Magnetic resonance images of the head/brain without and with intravenous contrast in multiple planes. CONTRAST: Patient received 8.8 CC MAT of IV contrast COMPARISON: CT dated 09/26/2023. FINDINGS: Brain: Scattered small punctate foci of T2 hyperintensity seen on FLAIR and T2 sequences within the deep white matter with trace signal within the periventricular region most compatible with sequela of chronic headaches versus nonspecific minor microangiopathic disease. No restricted diffusion abnormality to suggest acute stroke. No intracranial hemorrhage. No intracranial or extra-axial enhancing lesion. Ventricles: Unremarkable. No ventriculomegaly. Bones/joints: Unremarkable. No acute fracture. Sinuses: Unremarkable as visualized. No acute sinusitis. Mastoid air cells: Unremarkable as visualized. No mastoid effusion. Orbits: Unremarkable as visualized. IMPRESSION: 1. Minor white matter changes may indicate sequela of chronic headaches or early/minimal microangiopathic disease. 2. No acute stroke or intracranial hemorrhage. No intracranial enhancing lesion. Electronically signed by: Zabrina Amador MD 09/26/23 21:31 PM Medications Administered Home Medications Medication Instructions Recorded Confirmed Last Taken semaglutide (weight loss) 2.4 2.4 mg subcut WK 09/26/23 09/26/23 Unknown mg/0.75 mL subcutaneous pen injector (Wegovy) sennosides 8.6 mg capsule (senna) 8.6 mg PO HS 09/26/23 09/26/23 Unknown Active Medications Generic Name Dose Route Start Last Admin Trade Name Freq PRN Reason Stop Dose Admin Acetaminophen 650 mg 09/26/23 16:05 09/27/23 08:26 Acetaminophen 325 Mg Tab PO 10/26/23 16:04 650 mg Q4H PRN Administration Pain or Fever Capsaicin 1 appln 09/27/23 13:00 09/27/23 13:58 Capsaicin Cr 0.075% 60 Gm Tube EXT 10/27/23 12:59 1 appln BID SEBLE Administration Heparin Sodium (Porcine) 5,000 units 09/26/23 16:05 09/27/23 01:19 Heparin Sod 5,000 Unit/0.5 Ml Vial SQ 10/26/23 16:04 Not Given Q8 SEBLE Sennosides 8.6 mg 09/26/23 21:00 09/26/23 21:22 Senna 8.6 Mg Tab PO 10/26/23 20:59 8.6 mg HS SEBLE Administration
--- OUTSIDE RECORDS SUMMARY | 2023-09-27 15:41 | External Medical Summary | Summary of Care ---
Author Name Unknown Organization [facility] [address] [place] [address] Phone [phone] Care Team Providers Care Trench Shovel Operator Name Role Phone Amari Quesada PA-C Primary Care Provide r Reason for Visit * Reason Comments Treatment Venofer Encounter Details Date Type Department Care Team (Latest Contact Info) Description 09/19/2023 1:00 PM EDT Hem/Onc Treatment Hematology/Oncolog y Treatment, [address] [address] [facility], Chair[facility] Hem Onc [address] [place] [id number] Intestinal postoperative nonabsorption*; Iron deficiency anemia, unspecified iron deficiency anemia type Allergies Active Allergy Reactions Criticality Noted Date Comments Ciprofloxacin 04/24/2014 Sulfa Antibiotics Unknown 07/20/2018 Azithromycin Rash 07/20/2018 documented as of this encounter (statuses as of 09/19/2023) Medications Medication Sig Dispensed Refills Start Date End Date Status Nystatin 084482 UNIT/GM External Powder (Nystop)Indications :Vulvar irritation Apply topically to affected area 3 times a day. Apply to affected area three times a day for 7 days 15 g 0 03/13/2023 Active Cyclobenzaprine HCl 10 MG Oral Tablet (Flexeril)Indicatio ns:Acute bilateral low back pain without sciatica Take 1 Tablet by mouth at bedtime as needed for Muscle spasms. 30 Tablet 2 05/16/2023 Active Gabapentin 300 MG Oral Capsule (Neurontin)Indicati ons:Generalized arthritis Take 1 Capsule by mouth in the morning and 1 Capsule at noon and 1 Capsule before bedtime. 90 Capsule 5 06/05/2023 Active Additional Information Patient taking differently:300 mg OralPRN, Reported on 08/18/2023 Clobetasol Propionate 0.05 % External Cream (Temovate) Apply topically to affected area 2 times a day. To affected area for up to two weeks. 60 g 3 07/03/2023 Active Vitamin B-12 500 MCG Sublingual Tablet Sublingual (Vitamin B-12) Place 1 Tablet under the tongue in the morning. 0 Active Iron 325 (65 Fe) MG Oral Tablet Take by mouth 2 times a day. 0 Active Vitamin D3 25 MCG Oral Tablet (Cholecalciferol) Take 1 Tablet by mouth in the morning. 0 Active Naltrexone HCl 50 MG Oral Tablet (Revia)Indications: Abnormal weight gain,S/P gastric bypass Take 1/2 tab by mouth once a day for 1 week then take 1/2 tab twice a day (morning & late afternoon) 30 Tablet 2 08/18/2023 Active Additional Information Patient not taking.Reported on 09/05/2023 buPROPion HCl ER (SR) 150 MG Oral Tablet Extended Release 12 Hour (Wellbutrin SR)Indications:Abno rmal weight gain,S/P gastric bypass Take 1 tab by mouth once a day for 1 week then take 1 tab twice a day (morning & late afternoon) 60 Tablet 2 08/18/2023 Active Magnesium 100 MG Oral Capsule Take 1 Capsule by mouth in the morning. 0 Active Wegovy 2.4 MG/0.75ML Subcutaneous Solution Auto-injector (Semaglutide-Weight Management)Indicati ons:Obesity (BMI 30.0-34.9) Inject 2.4 mg (1 pen) under the skin once a week for 28 days. 3 mL 1 09/14/2023 10/17/2023 Active Hospital, Clinic, or Other Facility Administered Medication Ordered Dose Route Frequency Start Date End Date Status vitamin b-12 (Cyanocobalamin) inj 1,000 mcgIndications:S/P gastric bypass 1000 mcg IM [id number] 03/31/2023 03/01/2024 Active documented as of this encounter (statuses as of 09/19/2023) Active Problems Problem Noted Date Diagnosed Date Iron deficiency anemia 08/21/2023 Intestinal postoperative nonabsorption 4 Fibroids, submucosal 06/10/2022 Overview: Had follow up with [facility]. 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 Chronic fatigue syndrome 02/08/2016 Pure hypercholesterolemia 02/08/2016 Vitamin D deficiency 02/08/2016 documented as of this encounter (statuses as of 09/19/2023) Resolved Problems Problem Noted Date Diagnosed Date Resolved Date Other specified arthritis, left knee 09/21/2021 12/08/2021 Bilateral chronic knee pain 07/05/2021 12/08/2021 Primary osteoarthritis of right hip 02/04/2021 04/13/2022 Nasal lesion 07/20/2018 06/10/2022 Anxiety 08/05/2014 12/08/2021 documented as of this encounter (statuses as of 09/19/2023) Immunizations Name Administration Dates Next Due COVID-19 mRNA, LNP-s, No Pre serve, 2-Dose Series (Fastr) 08/24/2020,08/03/2020 TDAP (age 10 and older)(Boostrix) 07/21/2015 TDAP (age 11 and older)(Adacel) 07/21/2015 documented as of this encounter Social History Tobacco Use Types Packs/Day Years Used Date Smoking Tobacco: Former Cigarettes 1 15 0 07/20/1992 - 07/21/2007 Passive Smoke Exposure: Never Smokeless Tobacco: Never Alcohol Use Standard Drinks/Week Comments No 0 (1 standard drink = 0.6 oz pur e alcohol) AUDIT-C Answer Date Recorded Frequency of Alcohol Consumption Never 08/09/2019 Average Number of Drinks Not on file 020 Frequency of Binge Drinking Not on file 07/21 PHQ-2 Answer Date Recorded PHQ-2 Score 0 08/09/2019 Hunger Vital Sign Answer Date Recorded Within the past 12 months, y ou worried that your food would run out before you got the money to buy more. Patient declined Within the past 12 months, t he food you bought just didn't last and you didn't have money to get more. Patient declined Sex and Gender Information Value Date Recorded Sex Assigned at Female 04/10/2022 8:01 PM EST Gender Identity Female 04/10/2022 8:01 PM EST Sexual Orientation Choose not to disclose 2021 8:01 PM EST Job Start Date Occupation Industry Not on file Not on file Not on file documented as of this encounter Last Filed Vital Signs Vital Sign Reading Time Taken Comments Blood Pressure 116/73 09/19/2023 12:36 PM EDT Pulse 81 09/19/2023 12:36 PM EDT Temperature 36.7 C (98 F) 09/19/2023 12:36 PM EDT Respiratory Rate 20 09/19/2023 12:36 PM EDT Oxygen Saturation - - Inhaled Oxygen Concentration - - Weight - - Height - - Body Mass Index - - documented in this encounter Nursing Notes * Gricelda Naidu RN - 09/19/2023 2:23 PM EDT Patient tolerated venofer infusion without complication. Gricelda Naidu RN 09/19/2023 2:23 PM documented in this encounter Plan of Treatment Upcoming Encounters Date Type Department Care Team (Late st Contact Info) Description 10/25/2023 9:40 AM EDT Telemedicine Nutrition & Weight Management, [place] [address] [place] [address] Alicia Moran CRNP [address] [place] [address] 02/27/2024 10:20 AM EDT Office Visit Family Practice [address] [place] [address] Amari Quesada PA-C [address] [place] [address] Health Maintenance Due Date Last Done Comments HIV Screening 1973 HPV/Co-Test 1988 Mammogram 1998 Cologuard 12/28/2003 Fecal Occult Blood Test 12/28/2003 Sigmoidoscopy 12/28/2003 Zoster Vaccines (1 of 2) 2008 Depression Screening 08/08/2020 08/09/2019 COVID-19 Vaccine (3 - season) 2023 08/24/2020, 08/03/2020 Influenza Vaccine (FLU shot) (Season Ended) 2024 Cervical Cancer Screening 03/18/2024 Pap Smear 03/18/2024 03/18/2021 DTaP,Tdap,and Td Vaccines (3 - Td or Tdap) 07/20/2025 07/21/2015, 07/21/2015 Diabetes Screening 08/17/2026 08/18/2023, 0 08/18/2023, 04/03/2023, Additional history exists Lipid Panel 08/17/2028 08/18/2023, 03/22, 06/03/2022, Additional history exists Colonoscopy 08/20/2029 08/21/2019 Colorectal Cancer Screening 08/20/2029 GARDASIL-HPV IMMUNIZATION SERIES Aged Out No longer eligible based on patient's age to complete this topic Hepatitis B Aged Out No longer eligi ble based on patient's age to complete this topic MENINGOCOCCAL (MENACTRA/MENVEO) Aged Out No longer eligible based on patient's age to complete this topic Pneumococcal Vaccine: Pediatrics (0 to 5 Years) and At-Risk Patients (6 to 64 Years) Aged Out No longer eligible based on patient's age to complete this topic documented as of this encounter Medical Devices Not on filedocumented as of this encounter Visit Diagnoses Diagnosis Intestinal postoperative nonabsorption- Primary Other and unspecified postsurgical nonabsorption Iron deficiency anemia, unspecified iron deficiency anemia type documented in this encounter Administered Medications Active Administered Medications - up to 3 most recent administrations Medication Order MAR Action Action Date Dose Rate Site diphenhydrAMINE (Benadryl) inj 50 mg 50 mg, IV Push, ONCE PRN Other, Hypersensitivity Reaction, Starting on Mon09/19/23 at 1232, Until Mon09/20/23 at 1231, For 24 hours EPINEPHrine 1 MG/ML inj 0.3 mg 0.3 mg, Intramuscular, ONCE PRN Other, Hypersensitivity Reaction or Anaphylaxis, Starting on Mon09/19/23 at 1232, Until Mon09/20/23 at 1231, For 24 hours hEParin 100 UNIT/ML Lock Flush inj 500 Units 500 Units (5 mL), IV Lock, PRN Other, IV Flush, Starting on Mon09/19/23 at 1232, Until Mon09/20/23 at 1231, For 24 hours, Do not flush if lock, PICC, or central line not in place; IV infusing or unable to flush. Hydrocortisone Sod Suc (PF) (Solu-Cortef) inj 100 mg 100 mg, IV Push, ONCE PRN Other, Hypersensitivity Reaction, Starting on Mon09/19/23 at 1232, Until Mon09/20/23 at 1231, For 24 hours NSS infusion 500 mL, Intravenous, at 50 mL/hr, CONTINUOUS, Starting on Mon09/19/23 at 1345, Until Mon09/19/23 at 2344 Start Infusion 09/19/2023 12:44 PM EDT 500 mL 50 mL/hr oxygen GAS Inhalation, OXYGEN, First dose on Mon09/19/23 at 1600, Until Discontinued, Device/Managed by: Low Flow Device, Goal SPO2 (%): 91-95, Starting Device: Nasal Cannula, Initial Flow Rate (LPM): 2, Lowest Support: Nasal Cannula: Flow 0-6 LPM. Titrate up/down by 1 LPM., Higher Support: Non-Rebreather (NRB) Mask: Minimum of 10 LPM. Titrate to maintain bag inflation., Titration Interval: Q2 minutes and as needed., Notify Provider: For sudden DECREASE in resting SPO2 to less than 85% and when escalating delivery device., Wean patient off Oxygen when the oxygen saturation is greater than or equal to 93% sodium chloride 0.9 % flush central line 10 mL 10 mL, IV Push, PRN Other, IV Flush, Starting on Mon09/19/23 at 1232, Until Mon09/20/23 at 1231, For 24 hours, Do not flush if lock, PICC, or central line not in place; IV infusing or unable to flush. Inactive Administered Medications - up to 3 most recent administrations Medication Order MAR Action Action Date Dose Rate Site Iron Sucrose (Venofer) 300 mg in NSS 250 mL ivpb 300 mg, IV Piggyback, ONCE, 1 dose, On Mon09/19/23 at 1415, Administer over 90 Minutes Start Infusion 09/19/2023 12:46 PM EDT 300 mg 193.33 mL/hr documented in this encounter Care Teams Trench Shovel Operator Relationship Specialty Start Date End Date Amari Quesada PA-C [facility] [place] [id number] PCP - General Physician Automotive Window Tinter 07/31/23 documented as of this encounter
--- OUTSIDE RECORDS SUMMARY | 2023-09-27 15:41 | External Medical Summary | Summary of Care ---
Author Name Unknown Organization [facility] Address [address] [place] [address] Phone [phone] Care Team Providers Care Roll Icer Machine Name Role Phone Amari Quesada PA-C Primary Care Provide r Reason for Visit * Reason Comments Board Member Return Encounter Details Date Type Department Care Team ([facility] st Contact Info) Description 09/26/2023 9:30 AM EDT Office Visit Gynecology/Obstetrics [facility] [address] [facility] [place] [address] Christine Waterman PA-C [address] [facility] [place] [address] Vaginal atrophy* Allergies Active Allergy Reactions Criticality Noted Date Comments Ciprofloxacin 04/24/2014 Sulfa Antibiotics Unknown 07/20/2018 Azithromycin Rash 07/20/2018 documented as of this encounter (statuses as of 09/26/2023) Medications Medication Sig Dispensed Refills Start Date End Date Status Nystatin 527718 UNIT/GM External Powder (Nystop)Indicati ons:Vulvar irritation Apply topically to affected area 3 times a day. Apply to affected area three times a day for 7 days 15 g 0 3 Active Gabapentin 300 MG Oral Capsule (Neurontin)Indic ations:Generaliz ed arthritis Take 1 Capsule by mouth in the morning and 1 Capsule at noon and 1 Capsule before bedtime. 90 Capsule 5 4 Active Additional Information Patient taking differently:300 mg OralPRN, Reported on 08/18/2023 Clobetasol Propionate 0.05 % External Cream (Temovate) Apply topically to affected area 2 times a day. To affected area for up to two weeks. 60 g 3 4 Active Vitamin B-12 500 MCG Sublingual Tablet Sublingual (Vitamin B-12) Place 1 Tablet under the tongue in the morning. 0 Active Iron 325 (65 Fe) MG Oral Tablet Take by mouth 2 times a day. 0 Active Vitamin D3 25 MCG Oral Tablet (Cholecalciferol ) Take 1 Tablet by mouth in the morning. 0 Active Magnesium 100 MG Oral Capsule Take 1 Capsule by mouth in the morning. 0 Active Wegovy 2.4 MG/0.75ML Subcutaneous Solution Auto-injector (SemaglutideTry The World t Management)Indic ations:Obesity (BMI 30.0-34.9) Inject 2.4 mg (1 pen) under the skin once a week for 28 days. 3 mL 1 4 10/19/19 24 Active Estrogens Conjugated 0.625 MG/GM Vaginal Cream (Premarin)Indica tions:Vaginal atrophy Apply pea sized amount to the vaginal opening twice a day for 2 weeks. Then, apply pea sized amount twice weekly for maintenance. 30 g 3 4 Active Cyclobenzaprine HCl 10 MG Oral Tablet (Flexeril)Indica tions:Acute bilateral low back pain without sciatica Take 1 Tablet by mouth at bedtime as needed for Muscle spasms. 30 Tablet 2 3 09/26/19 24 Discontinued(Med ication List Clean Up) Naltrexone HCl 50 MG Oral Tablet (Revia)Indicatio ns:Abnormal weight gain,S/P gastric bypass Take 1/2 tab by mouth once a day for 1 week then take 1/2 tab twice a day (morning & late afternoon) 30 Tablet 2 4 09/26/19 24 Discontinued(Med ication List Clean Up) buPROPion HCl ER (SR) 150 MG Oral Tablet Extended Release 12 Hour (Wellbutrin SR)Indications:A bnormal weight gain,S/P gastric bypass Take 1 tab by mouth once a day for 1 week then take 1 tab twice a day (morning & late afternoon) 60 Tablet 2 4 09/26/19 24 Discontinued(Med ication List Clean Up) Estrogens Conjugated 0.625 MG/GM Vaginal Cream (Premarin)Indica tions:Vaginal atrophy Administer a pea sized amount to the vaginal opening twice a day for 2 weeks. Then apply pea sized amount to the vaginal opening twice a week for maintenance. 30 g 3 4 09/26/19 24 Discontinued Hospital, Clinic, or Other Facility Administered Medication Ordered Dose Route Frequency Start Date End Date Status vitamin b-12 (Cyanocobalamin) inj 1,000 mcgIndications:S/P gastric bypass 1000 mcg IM [id number] 03/31/2023 03/01/2024 Active documented as of this encounter (statuses as of 09/26/2023) Active Problems Problem Noted Date Diagnosed Date Iron deficiency anemia 08/21/2023 Intestinal postoperative nonabsorption 4 Fibroids, submucosal 06/10/2022 Overview: Had follow up with SENIOR INFORMATION DEVELOPER. 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 Chronic fatigue syndrome 02/08/2016 Pure hypercholesterolemia 02/08/2016 Vitamin D deficiency 02/08/2016 documented as of this encounter (statuses as of 09/26/2023) Resolved Problems Problem Noted Date Diagnosed Date Resolved Date Other specified arthritis, left knee 09/21/2021 12/08/2021 Bilateral chronic knee pain 07/05/2021 12/08/2021 Primary osteoarthritis of right hip 02/04/2021 04/13/2022 Nasal lesion 07/20/2018 06/10/2022 Anxiety 08/05/2014 12/08/2021 documented as of this encounter (statuses as of 09/26/2023) Immunizations Name Administration Dates Next Due COVID-19 mRNA, LNP-s, No Pre serve, 2-Dose Series ([employer]) 08/24/2020,08/03/2020 TDAP (age 10 and older)(Boostrix) 07/21/2015 [...] you got the money to buy more. Never true 09/25/19 24 Within the past 12 months, t he food you bought just didn't last and you didn't have money to get more. Never true 09/25/2023 Sex and Gender Information Value Date Recorded Sex Assigned at Female 04/10/2022 8:01 PM EST Gender Identity Female 04/10/2022 8:01 PM EST Sexual Orientation Choose not to disclose 2021 8:01 PM EST Job Start Date Occupation Industry Not on file Not on file Not on file documented as of this encounter Last Filed Vital Signs Vital Sign Reading Time Taken Comments Blood Pressure 118/70 09/26/2023 9:40 AM EDT Pulse - - Temperature - - Respiratory Rate - - Oxygen Saturation - - Inhaled Oxygen Concentration - - Weight - - Height 165.8 cm (5' 5.28") 09/26/2023 9:40 AM ED T Body Mass Index - - documented in this encounter Progress Notes * Christine Waterman PA-C - 09/26/2023 9:43 AM EDT Images from the original note were not included. Jimi Foster 09/26/2023 CC: Vulvar/Perineal Irritation HPI: Jimi Foster is a 62 year old postmenopausal female here with concerns for vulvar/perineal irritation. She reports her symptoms include burning and irritation starting 5-6 days ago. Reports it arauz when she walks and when she urinates. She has not tried anything for it. Was seen in the clinic 12/2022 by Jennifer Torres PA-C and simillar concerns were addressed. Biopsy in [address] Cain MD was inconclusive and repeat biopsy was recommended, but patient declined at that time. Patient states these symptoms are not similar or in a similar area to what she was treated for prior. She also continues to declines a repeat vulvar biopsy due to delayed healing and prolonged bleeding. She denies any further concerns to include vaginal discharge, burning, itching odor, vaginal bleeding, or urinary symptoms. She is not currently sexually active with no concerns for STIs at this time. Contraindications to Estrogen High Blood Pressure: None Migraines w/Auras: None Blood Clots: None Liver Disease: None Breast Cancer: None Smoking: None Patient has NOT had a hysterectomy OB History Para Term AB Living 0 0 0 0 0 0 SAB IAB Ectopic Multiple Live Births 0 0 0 0 0 Past Medical History: Diagnosis Date Lymphedema Past Surgical History: Procedure Laterality Date GASTRIC BAND PLACEMENT/PORT, LAPAROSCOPIC 2002 GASTRIC BAND REMOVAL ONLY, LAPAROSCOPIC 2007? GASTRIC BYPASS FOR OBESITY 2003 KNEE ARTHROSCOPY/SURGERY Right 07/15/2021 KNEE ARTHROSCOPY/SURGERY Left 09/23/2021 MISCELLANEOUS ORDER ([facility] ONLY) multiple cosmetic surgeries s/p gastric bypass MISCELLANEOUS ORDER ([facility] ONLY) bowel surgery REDUCTION OF BREAST 2004 REPAIR WRIST FRACTURE/DISLOCATION TOTAL HIP REPLACEMENT & PROSTHESIS Left 04/25/2022 Dr. Solorzano. TOTAL HIP REPLACEMENT & PROSTHESIS Right 2020 Family History Family History Problem Relation Age of Onset Diabetes Mother Diabetes Father Blood Disorder Father leukemia Blood Disorder Brother 30 leukemia Diabetes Grandmother (Maternal) Cancer Grandmother (Maternal) stomach & uterine Diabetes Grandfather (Maternal) Lung cancer Grandfather (Maternal) No Known Problems Grandmother (Paternal) Diabetes Grandfather (Paternal) Social History Social History Socioeconomic History Marital status: Tobacco Use Smoking status: Former Current packs/day: 0.00 Average packs/day: 1 pack/day for 15.0 years (15.0 ttl pk-yrs) Types: Cigarettes Start date: 07/20/1992 Quit date: 07/21/2007 Years since quittin.1 Passive exposure: Never Smokeless tobacco: Never Substance and Sexual Activity Alcohol use: No Drug use: No Sexual activity: Yes Partners: Male Social Determinants of Health Food Insecurity: No Food Insecurity (09/25/2023) Hunger Vital Sign Worried About Running Out of Food in the Last Year: Never true Ran Out of Food in the Last Year: Never true Medications Current Outpatient Medications Medication Sig Dispense Refill Clobetasol Propionate 0.05 % External Cream (Temovate) Apply topically to affected area 2 times a day. To affected area for up to two weeks. 60 g 3 Vitamin B-12 500 MCG Sublingual Tablet Sublingual (Vitamin B-12) Place 1 Tablet under the tongue inthe morning. Iron 325 (65 Fe) MG Oral Tablet Take by mouth 2 times a day. Vitamin D3 25 MCG Oral Tablet (Cholecalciferol) Take 1 Tablet by mouth in the morning. Magnesium 100 MG Oral Capsule Take 1 Capsule by mouth in the morning. Wegovy 2.4 MG/0.75ML Subcutaneous Solution Auto-injector (Semaglutide-Weight Management) Inject 2.4mg (1 pen) under the skin once a week for 28 days. 3 mL 1 Nystatin 779377 UNIT/GM External Powder (Nystop) Apply topically to affected area 3 times a day. Apply to affected area three times a day for 7 days 15 g 0 Gabapentin 300 MG Oral Capsule (Neurontin) Take 1 Capsule by mouth in the morning and 1 Capsule at noon and 1 Capsule before bedtime. (Patient taking differently: Take 1 Capsule by mouth as needed.) 90 Capsule 5 Current Facility-Administered Medications Medication Dose Route Frequency Provider Last Rate Last Admin vitamin b-12 (Cyanocobalamin) inj 1,000 mcg 1,000 mcg Intramuscular Q4 Weeks Amari Quesada PA-C 1,000 mcg at 07/25/23 0832 Allergies Review of patient's allergies indicates: Allergen Reactions Ciprofloxacin Sulfa Antibiotics Unknown Zithromax [Azithromycin] Rash ROS See HPI above for pertinent positives/negatives. Physical Exam BP 118/70 | Ht 1.658 m (5' 5.28") | BMI 33.85 kg/m | BSA 2.07 m General: awake, alert, and oriented x 3, NAD Neuro: no focal motor/sensory deficits, gait normal Pelvic: external genitalia and vagina anatomy atrophic and dry. There is a small fissure noted between the vaginal opening and the perineum. See diagram below for location. No redness, swelling, or erythema. No signs of infection. No vaginal discharge. Rectal: perianal area normal, anus normal Physical Exam Genitourinary: Comments: Location of small fissure. Casket Upholsterer Documentation Patient offered chemists and accepted. Name of chemists: Yolie Stone LPN. Assessment/Plan Vaginal atrophy (Primary) - Estrogens Conjugated 0.625 MG/GM Vaginal Cream (Premarin); Apply pea sized amount to the vaginal opening twice a day for 2 weeks. Then, apply pea sized amount twice weekly for maintenance. - Discussed risks versus benefits of vaginal/topical estrogen therapy. Patient would like to try this at this time. - Educated on how to use the medication. To apply a pea/finger tip sized amount to the vaginal opening twice a day for 2 weeks, then twice weekly for maintenance. - Patient to reach out if not covered by insurance to try another medication that may be covered. - To monitor for any vaginal bleeding/ACHES. - Can try coconut oil as a lubricant for vaginal dryness during intercourse. - Should still consider repeat vulvar biopsy if symptoms were to worsen or persist. Follow-Up: RTO 3 months for Premarin follow-up, PRN with further questions or concerns. Call the office with any problems, questions, concerns. Christine Waterman PA-C 09/26/2023 documented in this encounter Nursing Notes * Yolie Stone LPN - 09/26/2023 9:37 AM EDT Pt is here for bottom on vagina feels irritated and painful Going on for 5-6 days Denies any changes or intercourse Has not tried anything otc Denies discharge or odor documented in this encounter Plan of Treatment Upcoming Encounters Date Type Department Care Team (Late st Contact Info) Description 10/25/2023 9:40 AM EDT Telemedicine Nutrition & Weight Management, [place] [address] [place] [address] Alicia Moran CRNP [address], [place] [id number] 01/10/2024 2:00 PM EDT Office Visit Gynecology/Obstetrics [facility] Kerns [address] [place] [address] Jennifer Torres PA-C [address] [place] [address] 02/27/2024 10:20 AM EDT Office Visit Family Practice [place], [place] [address] [place] [place] [address] Amari Quesada PA-C [address] [place] [address] Health Maintenance Due Date Last Done Comments [...] as of this encounter Visit Diagnoses Diagnosis Vaginal atrophy- Primary Postmenopausal atrophic vaginitis documented in this encounter Care Teams Roll Icer Machine Relationship Specialty Start Date End Date Amari Quesada PA-C [address] [facility] [place] [phone] PCP - General Physician Peer Tutor 07/31/23 documented as of this encounter
--- OUTSIDE RECORDS SUMMARY | 2023-09-27 15:41 | External Medical Summary | Summary of Care ---
Author Name Unknown Organization [facility] [address] [place] [address] Phone [phone] Care Team Providers Care Accounting Advisory Services Manager Name Role Phone Amari Quesada PA-C Primary Care Provide r Reason for Visit * Reason Comments Treatment Venofer Encounter Details Date Type Department Care Team (Latest Contact Info) Description 09/12/2023 1:00 PM EDT Hem/Onc Treatment Hematology/Oncolog y Treatment, [address] [address] [facility], Chair Hem Onc [address] [place] [address] Intestinal postoperative nonabsorption*; Iron deficiency anemia, unspecified iron deficiency anemia type Allergies Active Allergy Reactions Criticality Noted Date Comments Ciprofloxacin 04/24/2014 Sulfa Antibiotics Unknown 07/20/2018 Azithromycin Rash 07/20/2018 documented as of this encounter (statuses as of 09/12/2023) Medications Medication Sig Dispensed Refills Start Date End Date Status Nystatin 077941 UNIT/GM External Powder (Nystop)Indications :Vulvar irritation Apply [...] mouth in the morning. 0 Active Wegovy 1.7 MG/0.75ML Subcutaneous Solution Auto-injector (Semaglutide-Weight Management)Indicati ons:Abnormal weight gain,S/P gastric bypass Inject 1.7 mg under the skin once a week for 28 days. 3 mL 1 08/18/2023 09/26/2023 Active Naltrexone HCl 50 MG Oral Tablet [...] by mouth in the morning. 0 Active Hospital, Clinic, or Other Facility Administered Medication Ordered Dose Route Frequency Start Date End Date Status vitamin b-12 (Cyanocobalamin) inj 1,000 mcgIndications:S/P gastric bypass 1000 mcg IM [id number] 03/31/2023 03/01/2024 Active documented as of this encounter (statuses as of 09/12/2023) Active Problems Problem Noted Date Diagnosed Date Iron deficiency anemia 08/21/2023 Intestinal postoperative nonabsorption 04/01/202 4 Fibroids, submucosal 06/10/2022 Overview: Had follow up with ORACLE ANALYST. 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 Chronic fatigue syndrome 02/08/2016 Pure hypercholesterolemia 02/08/2016 Vitamin D deficiency 02/08/2016 documented as of this encounter (statuses as of 09/12/2023) Resolved Problems Problem Noted Date Diagnosed Date Resolved Date Other specified arthritis, left knee 09/21/2021 12/08/2021 Bilateral chronic knee pain 07/05/2021 12/08/2021 Primary osteoarthritis of right hip 02/04/2021 04/13/2022 Nasal lesion 07/20/2018 06/10/2022 Anxiety 08/05/2014 12/08/2021 documented as of this encounter (statuses as of 09/12/2023) Immunizations Name Administration Dates Next Due COVID-19 mRNA, LNP-s, No Pre serve, 2-Dose Series ([employer]) 08/24/2020,08/03/2020 TDAP (age 10 and older)(Boostrix) 07/21/2015 [...] Sign Reading Time Taken Comments Blood Pressure 118/68 09/12/2023 2:36 PM EDT Pulse 57 09/12/2023 2:36 PM EDT Temperature 36.8 C (98.2 F) 09/12/2023 2:36 PM ED T Respiratory Rate 18 09/12/2023 2:36 PM EDT Oxygen Saturation - - Inhaled Oxygen Concentration - - Weight - - Height - - Body Mass Index - - documented in this encounter Nursing Notes * Fide Kennedy RN - 09/12/2023 12:55 PM EDT [place] # 10 Pt tolerated Venofer infusion well. Patient left IVC by ambulating. Unaccompanied. Voiced no complaints. Fide Kennedy RN 09/12/2023 [facility] Nursing Care Plan ID is not set. 09/12/2023 Safety and Risk for Injury Patient will remain free from injury. Assess patient's risk for falls per policy. Encourage activity as ordered per policy. Ensure appropriate safety devices are available. Implement fall prevention plan of care per policy. Include patient and caregiver in decisions related to safety. Perform safety rounds per policy. Provide and maintain safe environment. Goals: Pt will not fall at infusion center. Possible barriers to meeting goals: Ambulating with IV pole. Stability of the patient: Moderately stable - low risk of patient condition declining or worsening Summary regarding today's goals: Met: Pt did not fall at infusion center. Fide Kennedy RN documented in this encounter Plan of Treatment Upcoming Encounters Date Type Department Care Team (Late st Contact Info) Description 09/19/2023 1:00 PM EDT Hem/Onc Treatment Hematology/Oncology Treatment, [facility] [address] [place] [address] [facility], Chair1 Hem Onc [address] [place] [address] 10/25/2023 9:40 AM EDT Telemedicine Nutrition & Weight Management, [place] [address] [place] [address] Alicia Moran CRNP [address] [place] [address] 02/27/2024 10:20 AM EDT Office Visit Family Practice [place] [address] [place] [phone] Amari Quesada PA-C [address] [place] [address] [place] [phone] Health Maintenance Due Date Last Done Comments [...] ONCE PRN Other, Hypersensitivity Reaction, Starting on Mon09/12/23 at 1253, Until Mon09/13/23 at 1252, For 24 hours EPINEPHrine 1 MG/ML inj 0.3 mg 0.3 mg, Intramuscular, ONCE PRN Other, Hypersensitivity Reaction or Anaphylaxis, Starting on Mon09/12/23 at 1253, Until Mon09/13/23 at 1252, For 24 hours hEParin 100 UNIT/ML Lock Flush inj 500 Units 500 Units (5 mL), IV Lock, PRN Other, IV Flush, Starting on Mon09/12/23 at 1253, Until Mon09/13/23 at 1252, For 24 hours, Do not flush if lock, PICC, or central line not in place; IV infusing or unable to flush. Hydrocortisone Sod Suc (PF) (Solu-Cortef) inj 100 mg 100 mg, IV Push, ONCE PRN Other, Hypersensitivity Reaction, Starting on Mon09/12/23 at 1253, Until Mon09/13/23 at 1252, For 24 hours NSS infusion 500 mL, Intravenous, at 50 mL/hr, CONTINUOUS, Starting on Mon09/12/23 at 1400, Until Mon09/12/23 at 2359 Start Infusion 09/12/2023 1:09 PM EDT 500 mL 50 mL/hr sodium chloride 0.9 % flush central line 10 mL 10 mL, IV Push, PRN Other, IV Flush, Starting on Mon09/12/23 at 1253, Until Mon09/13/23 at 1252, For 24 hours, Do not flush if lock, PICC, or central line not in place; IV infusing or unable to flush. Inactive Administered Medications - up to 3 most recent administrations Medication Order MAR Action Action Date Dose Rate Site Iron Sucrose (Venofer) 300 mg in NSS 250 mL ivpb 300 mg, IV Piggyback, ONCE, 1 dose, On Mon09/12/23 at 1430, Administer over 90 Minutes Start Infusion 09/12/2023 1:13 PM EDT 300 mg 193.33 mL/hr documented in this encounter Care Teams Accounting Advisory Services Manager Relationship Specialty Start Date End Date Amari Quesada PA-C [address] [facility] [place] [phone] PCP - General Physician Rebar Fabricator 07/31/23 documented as of this encounter
--- OUTSIDE RECORDS SUMMARY | 2023-09-27 15:41 | External Medical Summary | Summary of Care ---
Author Name Unknown Organization [facility] Address [address] [place] [address] Phone [phone] Care Team Providers Care Photogrammetric Engineer Name Role Phone Amari Quesada PA-C Primary Care Provide r Reason for Visit * Reason Comments Hotel Or Motel Room Service Supervisor Return Encounter Details Date Type Department Care Team ([facility] st Contact Info) Description 09/26/2023 9:30 AM EDT Office Visit Gynecology/Obstetrics [facility] [address] [facility] [place] [address] Christine Waterman PA-C [address] [facility] [place] [address] Vaginal atrophy* Allergies Active Allergy Reactions Criticality Noted Date Comments Ciprofloxacin 04/24/2014 Sulfa Antibiotics Unknown 07/20/2018 Azithromycin Rash 07/20/2018 documented as of this encounter (statuses as of 09/26/2023) Medications Medication Sig Dispensed Refills Start Date End Date Status Nystatin 203600 UNIT/GM External Powder (Nystop)Indicati ons:Vulvar irritation Apply [...] Active Wegovy 2.4 MG/0.75ML Subcutaneous Solution Auto-injector (SemaglutideReturnHauler t Management)Indic ations:Obesity (BMI 30.0-34.9) Inject 2.4 [...] 1,000 mcgIndications:S/P gastric bypass 1000 mcg IM [id number] 03/31/2023 03/01/2024 Active documented as of this encounter (statuses as of 09/26/2023) Active Problems Problem Noted Date Diagnosed Date Iron deficiency anemia 08/21/2023 Intestinal postoperative nonabsorption 4 Fibroids, submucosal 06/10/2022 Overview: Had follow up with BRASS CLEANER. Status post bilateral knee replacements 12/09/19 22 [...] mRNA, LNP-s, No Pre serve, 2-Dose Series ([employer]) 08/24/2020,08/03/2020 TDAP (age 10 and older)(Boostrix) 07/21/2015 [...] for 28 days. 3 mL 1 Nystatin 109478 UNIT/GM External Powder (Nystop) Apply topically to [...] Exam Genitourinary: Comments: Location of small fissure. Client Technical Support Associate Documentation Patient offered mannequin mounter and accepted. Name of mannequin mounter: Yolie Stone LPN. Assessment/Plan Vaginal atrophy (Primary) [...] AM EDT Telemedicine Nutrition & Weight Management, [place] [address] [place] [address] Alicia Moran CRNP [address] [place], [place] [phone] 01/10/2024 2:00 PM EDT Office Visit Gynecology/Obstetrics [facility]erns [address] [place] [address] Jennifer Torres PA-C [address] [place] [address] 02/27/2024 10:20 AM EDT Office Visit Family Practice [place], [place] [address] [place] [address] Amari Quesada PA-C [address] [place] [address] Health Maintenance Due Date Last Done Comments [...] vaginitis documented in this encounter Care Teams Photogrammetric Engineer Relationship Specialty Start Date End Date Amari Queasda PA-C [address] [facility] [place] [phone] PCP - General Physician Reading Professor 07/31/23 documented as of this encounter
--- OUTSIDE RECORDS SUMMARY | 2023-09-27 15:41 | External Medical Summary | Summary of Care ---
Author Name Unknown Organization [facility] Address [address] [place] [address] Phone [phone] Care Team Providers Care Internal Audit Manager Name Role Phone Amari Quesada PA-C Primary Care Provide r Encounter Details Date Type Department Care Team ([facility] Contact Info) Description 09/25/2023 Telephone Gynecology/Obstetrics [facility] [address] [place] [address] Jennifer Torres PA-C [address] [place] [address] Allergies Active Allergy Reactions Criticality Noted Date Comments Ciprofloxacin 04/24/2014 Sulfa Antibiotics Unknown 07/20/2018 Azithromycin Rash 07/20/2018 documented as of this encounter (statuses as of 09/25/2023) Medications Medication Sig Dispensed Refills Start Date End Date Status Nystatin 197259 UNIT/GM External Powder (Nystop)Indications :Vulvar irritation Apply [...] for 28 days. 3 mL 1 09/14/2023 10/19/2023 Active Hospital, Clinic, or Other Facility Administered Medication Ordered Dose Route Frequency Start Date End Date Status vitamin b-12 (Cyanocobalamin) inj 1,000 mcgIndications:S/P gastric bypass 1000 mcg IM [id number] 03/31/2023 03/01/2024 Active documented as of this encounter (statuses as of 09/25/2023) Active Problems Problem Noted Date Diagnosed Date Iron deficiency anemia 08/21/2023 Intestinal postoperative nonabsorption 4 Fibroids, submucosal 06/10/2022 Overview: Had follow up with HOME APPRAISER. 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 Chronic fatigue syndrome 02/08/2016 Pure hypercholesterolemia 02/08/2016 Vitamin D deficiency 02/08/2016 documented as of this encounter (statuses as of 09/25/2023) Resolved Problems Problem Noted Date Diagnosed Date Resolved Date Other specified arthritis, left knee 09/21/2021 12/08/2021 Bilateral chronic knee pain 07/05/2021 12/08/2021 Primary osteoarthritis of right hip 02/04/2021 04/13/2022 Nasal lesion 07/20/2018 06/10/2022 Anxiety 08/05/2014 12/08/2021 documented as of this encounter (statuses as of 09/25/2023) Immunizations Name Administration Dates Next Due COVID-19 [...] on file documented as of this encounter Miscellaneous Notes * Telephone Encounter - Ashleigh David RN - 09/25/2023 10:43 AM EDT Patient calling in states that she has vaginal burning and irritation. No UTI symptoms. States the irritation has been ongoing for 4-5 days. No abnormal discharge or bleeding. Denies having BV or yeast infections recently. Would like appointment in the office. Scheduled for opening with Christine tomorrow. Patient agreeable to appt time. documented in this encounter Plan of Treatment Upcoming Encounters Date Type Department Care Team (Late st Contact Info) Description 09/26/2023 9:30 AM EDT Office Visit Gynecology/Obstetrics [facility] [address] [facility] [place] [address] Christine Waterman PA-C [address] [facility] [place] [address] 10/25/2023 9:40 AM EDT [facility] [address] [place] [address] Alicia Moran CRNP [address] [place] [address] 02/27/2024 10:20 AM EDT Office Visit Family Practice [address] [place] [address] Amari Quesada PA-C [address] [place] [address] Health Maintenance Due Date Last Done Comments [...] Not on filedocumented as of this encounter Care Teams Internal Audit Manager Relationship Specialty Start Date End Date Amari Quesada PA-C [facility] [place] [phone] PCP - General Physician Calculation Reviewer 07/31/23 documented as of this encounter
--- OUTSIDE RECORDS SUMMARY | 2023-09-27 15:41 | External Medical Summary | Summary of Care ---
Author Name Unknown Organization [facility] [address] [place] [address] Phone [phone] Care Team Providers Care Landscape Painter Name Role Phone Amari Quesada PA-C Primary Care Provide r Reason for Visit * Reason Comments Treatment Venofer Encounter Details Date Type Department Care Team (Latest Contact Info) Description 09/12/2023 1:00 PM EDT Hem/Onc Treatment Hematology/Oncolog y Treatment, [address] [address] [facility], Chair Hem Onc [address] [place] [address] Intestinal postoperative nonabsorption*; Iron deficiency anemia, unspecified iron deficiency anemia type Allergies Active Allergy Reactions Criticality Noted Date Comments Ciprofloxacin 04/24/2014 Sulfa Antibiotics Unknown 07/20/2018 Azithromycin Rash 07/20/2018 documented as of this encounter (statuses as of 09/14/2023) Medications Medication Sig Dispensed Refills Start Date End Date Status Nystatin 519550 UNIT/GM External Powder (Nystop)Indications :Vulvar irritation Apply [...] 1,000 mcgIndications:S/P gastric bypass 1000 mcg IM [id number] 03/31/2023 03/01/2024 Active documented as of this encounter (statuses as of 09/14/2023) Active Problems Problem Noted Date Diagnosed Date Iron deficiency anemia 08/21/2023 Intestinal postoperative nonabsorption 04/01/202 4 Fibroids, submucosal 06/10/2022 Overview: Had follow up with ASSISTANT SUPERINTENDENT FOR CURRICULUM. 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 Chronic fatigue syndrome 02/08/2016 Pure hypercholesterolemia 02/08/2016 Vitamin D deficiency 02/08/2016 documented as of this encounter (statuses as of 09/14/2023) Resolved Problems Problem Noted Date Diagnosed Date Resolved Date Other specified arthritis, left knee 09/21/2021 12/08/2021 Bilateral chronic knee pain 07/05/2021 12/08/2021 Primary osteoarthritis of right hip 02/04/2021 04/13/2022 Nasal lesion 07/20/2018 06/10/2022 Anxiety 08/05/2014 12/08/2021 documented as of this encounter (statuses as of 09/14/2023) Immunizations Name Administration Dates Next Due COVID-19 [...] Kennedy RN - 09/12/2023 12:55 PM EDT [place] # 10 Pt tolerated Venofer infusion well. Patient left IVC by ambulating. Unaccompanied. Voiced no complaints. Fide Kennedy RN 09/12/2023 [facility] Nursing Care Plan ID is not [...] 1:00 PM EDT Hem/Onc Treatment Hematology/Oncology Treatment, [facility] [address] [place] [address] [facility], Chair1 Hem Onc [address] [place] [address] 10/25/2023 9:40 AM EDT Telemedicine Nutrition & Weight Management, [place] [address] [place] [address] Alicia Moran CRNP [address] [place] [address] 02/27/2024 10:20 AM EDT Office Visit Family Practice [place] [address] [place] [phone] Amari Quesada PA-C [address] [place] [id number] Health Maintenance Due Date Last Done Comments [...] type documented in this encounter Administered Medications Inactive Administered Medications - up to 3 most recent administrations Medication Order MAR Action Action Date Dose Rate Site Iron Sucrose (Venofer) 300 mg in NSS 250 mL ivpb 300 mg, IV Piggyback, ONCE, 1 dose, On Mon09/12/23 at 1430, Administer over 90 Minutes Start Infusion 09/12/2023 1:13 PM EDT 300 mg 193.33 mL/hr NSS infusion 500 mL, Intravenous, at 50 mL/hr, CONTINUOUS, Starting on Mon09/12/23 at 1400, Until Mon09/12/23 at 1848 Start Infusion 09/12/2023 1:09 PM EDT 500 mL 50 mL/hr documented in this encounter Care Teams Landscape Painter Relationship Specialty Start Date End Date Amari Quesada PA-C [facility] [place] [phone] PCP - General Physician Business Executive 07/31/23 documented as of this encounter
--- OUTSIDE RECORDS SUMMARY | 2023-09-27 15:42 | External Medical Summary | Summary of Care ---
Author Name Unknown Organization [facility] Address [address] [place] [address] Phone [phone] Care Team Providers Care Business Support Liaison Name Role Phone Amari Quesada PA-C Primary Care Provide r Encounter Details Date Type Department Care Team ([facility] Contact Info) Description 09/12/2023 Orders Only Nutrition and Weight Management, [place] [address] [place], [place] [phone] Alicia Moran CRNP [address] [place] [address] Allergies Active Allergy Reactions Criticality Noted Date Comments Ciprofloxacin 04/24/2014 Sulfa Antibiotics Unknown 07/20/2018 Azithromycin Rash 07/20/2018 documented as of this encounter (statuses as of 09/12/2023) Medications Medication Sig Dispensed Refills Start Date End Date Status Nystatin 284554 UNIT/GM External Powder (Nystop)Indications :Vulvar irritation Apply topically to affected area 3 times a day. Apply to affected area three times a day for 7 days 15 g 0 03/13/2023 Active Cyclobenzaprine HCl 10 MG Oral Tablet (Flexeril)Indicatio ns:Acute bilateral low back pain without sciatica Take 1 Tablet by mouth at bedtime as needed for Muscle spasms. 30 Tablet 2 05/16/2023 Active Additional Information Patient not taking.Reported on 08/18/2023 Gabapentin 300 MG Oral Capsule (Neurontin)Indicati ons:Generalized [...] late afternoon) 60 Tablet 2 08/18/2023 Active Additional Information Patient not taking.Reported on 09/05/2023 Hospital, Clinic, or Other Facility Administered Medication Ordered Dose Route Frequency Start Date End Date Status vitamin b-12 (Cyanocobalamin) inj 1,000 mcgIndications:S/P gastric bypass 1000 mcg IM [id number] 03/31/2023 03/01/2024 Active documented as of this encounter (statuses as of 09/12/2023) Active Problems Problem Noted Date Diagnosed Date Iron deficiency anemia 08/21/2023 Intestinal postoperative nonabsorption 4 Fibroids, submucosal 06/10/2022 Overview: Had follow up with DIRECTOR OF CURRICULUM. Status post bilateral knee replacements 12/09/19 [...] on file documented as of this encounter Plan of Treatment Upcoming Encounters Date Type Department Care Team (Late st Contact Info) Description 09/12/2023 1:00 PM EDT Hem/Onc Treatment Hematology/Oncology Treatment, [address] [address] [facility], Chair10 Hem Onc [address] [place] [address] 09/19/2023 1:00 PM EDT Hem/Onc Treatment Hematology/Oncology Treatment, [address] [address] [facility], Chair1 Hem Onc [address] [place] [address] 10/25/2023 9:40 AM EDT Telemedicine Nutrition & Weight Management, [place] [address] [place] [address] Alicia Moran CRNP [address] [place] [address] 02/27/2024 10:20 AM EDT Office Visit Family Practice [place] [address] [place] [address] Amari Quesada PA-C [address] [place] [address] Health Maintenance Due Date Last Done Comments [...] filedocumented as of this encounter Care Teams Business Support Liaison Relationship Specialty Start Date End Date Amari Quesada PA-C [address] [facility] [place] [phone] PCP - General Physician Armature Straightener 07/31/23 documented as of this encounter
--- OUTSIDE RECORDS SUMMARY | 2023-09-27 15:42 | External Medical Summary | Summary of Care ---
Author Name Unknown Organization [facility] Address [address] [place] [address] Phone [phone] Care Team Providers Care Fly Rail Operator Name Role Phone Amari Quesada PA-C Primary Care Provide r Encounter Details Date Type Department Care Team ([facility] Contact Info) Description 09/12/2023 Orders Only Nutrition and Weight Management, [place] [address] [place], [place] [phone] Alicia Moran CRNP [address] [place] [address] Allergies Active Allergy Reactions Criticality Noted Date Comments Ciprofloxacin 04/24/2014 Sulfa Antibiotics Unknown 07/20/2018 Azithromycin Rash 07/20/2018 documented as of this encounter (statuses as of 09/12/2023) Medications Medication Sig Dispensed Refills Start Date End Date Status Nystatin 327714 UNIT/GM External Powder (Nystop)Indications :Vulvar irritation Apply [...] 1,000 mcgIndications:S/P gastric bypass 1000 mcg IM [id number] 03/31/2023 03/01/2024 Active documented as of this encounter (statuses as of 09/12/2023) Active Problems Problem Noted Date Diagnosed Date Iron deficiency anemia 08/21/2023 Intestinal postoperative nonabsorption 4 Fibroids, submucosal 06/10/2022 Overview: Had follow up with TRAY FILLER. Status post bilateral knee replacements 12/09/19 22 [...] 1:00 PM EDT Hem/Onc Treatment Hematology/Oncology Treatment, [address] [facility], Chair10 Hem Onc [address] [place] [address] 09/19/2023 1:00 PM EDT Hem/Onc Treatment Hematology/Oncology Treatment, [address] [facility], Chair1 Hem Onc [address] [place] [address] 10/25/2023 9:40 AM EDT Telemedicine Nutrition & Weight Management, [place] [address] [place] [address] Alicia Moran CRNP [address] [place] [address] 02/27/2024 10:20 AM EDT Office Visit Family Practice [place] [address] [place] [place] [address] Amari Quesada PA-C [address] [place] [address] Health Maintenance Due Date Last Done Comments [...] filedocumented as of this encounter Care Teams Fly Rail Operator Relationship Specialty Start Date End Date Amari Quesada PA-C [address] [facility] [place] [phone] PCP - General Physician Transport Technician 07/31/23 documented as of this encounter
--- OUTSIDE RECORDS SUMMARY | 2023-09-27 15:42 | External Medical Summary | Summary of Care ---
Author Name Unknown Organization [facility] [address] [place] [address] Phone [phone] Care Team Providers Care Sales Estimator Name Role Phone Amari Quesada PA-C Primary Care Provide r Reason for Visit * Reason Comments Treatment venofer Encounter Details Date Type Department Care Team (Latest Contact Info) Description 09/05/2023 11:30 AM EDT Hem/Onc Treatment Hematology/Oncolog y Treatment, [address] [address] [facility], Chair Hem Onc [address] [place] [address] Intestinal postoperative nonabsorption*; Iron deficiency anemia, unspecified iron deficiency anemia type Allergies Active Allergy Reactions Criticality Noted Date Comments Ciprofloxacin 04/24/2014 Sulfa Antibiotics Unknown 07/20/2018 Azithromycin Rash 07/20/2018 documented as of this encounter (statuses as of 09/07/2023) Medications Medication Sig Dispensed Refills Start Date End Date Status Nystatin 316937 UNIT/GM External Powder (Nystop)Indications :Vulvar irritation Apply [...] 1,000 mcgIndications:S/P gastric bypass 1000 mcg IM [id number] 03/31/2023 03/01/2024 Active documented as of this encounter (statuses as of 09/07/2023) Active Problems Problem Noted Date Diagnosed Date Iron deficiency anemia 08/21/2023 Intestinal postoperative nonabsorption 4 Fibroids, submucosal 06/10/2022 Overview: Had follow up with CORPORATE PILOT. 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 Chronic fatigue syndrome 02/08/2016 Pure hypercholesterolemia 02/08/2016 Vitamin D deficiency 02/08/2016 documented as of this encounter (statuses as of 09/07/2023) Resolved Problems Problem Noted Date Diagnosed Date Resolved Date Other specified arthritis, left knee 09/21/2021 12/08/2021 Bilateral chronic knee pain 07/05/2021 12/08/2021 Primary osteoarthritis of right hip 02/04/2021 04/13/2022 Nasal lesion 07/20/2018 06/10/2022 Anxiety 08/05/2014 12/08/2021 documented as of this encounter (statuses as of 09/07/2023) Immunizations Name Administration Dates Next Due COVID-19 mRNA, LNP-s, No Pre serve, 2-Dose Series ([employer]) 08/24/2020,08/03/2020 TDAP (age 10 and older)(Boostrix) 07/21/2015 [...] Sign Reading Time Taken Comments Blood Pressure 113/72 09/05/2023 1:01 PM EDT Pulse 59 09/05/2023 1:01 PM EDT Temperature 36 C (96.8 F) 09/05/2023 1:01 PM EDT Respiratory Rate 20 09/05/2023 1:01 PM EDT Oxygen Saturation - - Inhaled Oxygen Concentration - - Weight - - Height - - Body Mass Index - - documented in this encounter Nursing Notes * Diane Burgess LPN - 09/05/2023 1:20 PM EDT Infusion completed. Tolerated well. No distress, VSS. Patient left IVC by ambulating. Unaccompanied. Voiced no complaints. Diane Burgess LPN 09/05/2023 1:20 PM * Diane Burgess LPN - 09/05/2023 11:22 AM EDT [place] #4. Pt for Venofer infusion. States had years ago with no problems. documented in this encounter Plan of Treatment Upcoming Encounters Date Type Department Care Team (Late st Contact Info) Description 09/12/2023 11:30 AM EDT Hem/Onc Treatment Hematology/Oncology Treatment, [address] [place] [address] [facility], Chair5 Hem Onc 400 [facility], [place] [address] 09/19/2023 1:00 PM EDT Hem/Onc Treatment Hematology/Oncology Treatment, [facility] 400 [facility], [place] [address] [facility], Chair1 Hem Onc 400 [facility], [place] [address] 10/25/2023 9:40 AM EDT Telemedicine Nutrition & Weight Management, [place] [address] [place] [address] Alicia Moran CRNP [address] [place] [address] 02/27/2024 10:20 AM EDT Office Visit Family Practice [address] [place] [address] Amari Quesada PA-C [address] [facility] [place] [address] Health Maintenance Due Date Last Done Comments [...] mg, IV Piggyback, ONCE, 1 dose, On Mon09/05/23 at 1300, Administer over 90 Minutes Start Infusion 09/05/2023 11:31 AM EDT 300 mg 166.67 mL/hr NSS infusion 500 mL, Intravenous, at 50 mL/hr, CONTINUOUS, Starting on Mon09/05/23 at 1230, Until Mon09/05/23 at 1722 Start Infusion 09/05/2023 11:29 AM EDT 500 mL 50 mL/hr documented in this encounter Care Teams Sales Estimator Relationship Specialty Start Date End Date Amari Quesada PA-C [address] [facility] [place] [phone] PCP - General Physician Chair Finisher 07/31/23 documented as of this encounter
--- OUTSIDE RECORDS SUMMARY | 2023-09-27 15:42 | External Medical Summary | Summary of Care ---
Author Name Unknown Organization [facility] [address] [place] [address] Phone [phone] Care Team Providers Care Unit Assembler Name Role Phone Amari Quesada PA-C Primary Care Provide r Encounter Details Date Type Department Care Team ([facility] Contact Info) Description 08/21/2023 Orders Only Hematology/Oncology Treatment, [facility] [address] [place] [address] Alicia Moran CRNP [address] [place] [address] Allergies Active Allergy Reactions Criticality Noted Date Comments Ciprofloxacin 04/24/2014 Sulfa Antibiotics Unknown 07/20/2018 Azithromycin Rash 07/20/2018 documented as of this encounter (statuses as of 09/11/2023) Medications Medication Sig Dispensed Refills Start Date End Date Status Nystatin 540945 UNIT/GM External Powder (Nystop)Indications :Vulvar irritation Apply [...] 1,000 mcgIndications:S/P gastric bypass 1000 mcg IM [id number] 03/31/2023 03/01/2024 Active documented as of this encounter (statuses as of 09/11/2023) Active Problems Problem Noted Date Diagnosed Date Iron deficiency anemia 08/21/2023 Intestinal postoperative nonabsorption Fibroids, submucosal 06/10/2022 Overview: Had follow up with ANTHROPOLOGICAL LINGUIST. Status post bilateral knee replacements 12/09/19 Obesity, Class I, BMI 30.0-34.9 (see actual BMI) 12/08/2021 History of hepatitis A 07/05/2021 Overview: 1987 S/P gastric bypass 07/20/2018 Vitamin B12 deficiency 07/20/2018 Degenerative disc disease, thoracic 06/25/2016 Chronic fatigue syndrome 02/08/2016 Pure hypercholesterolemia 02/08/2016 Vitamin D deficiency 02/08/2016 documented as of this encounter (statuses as of 09/11/2023) Resolved Problems Problem Noted Date Diagnosed Date Resolved Date Other specified arthritis, left knee 09/21/2021 12/08/2021 Bilateral chronic knee pain 07/05/2021 12/08/2021 Primary osteoarthritis of right hip 02/04/2021 04/13/2022 Nasal lesion 07/20/2018 06/10/2022 Anxiety 08/05/2014 12/08/2021 documented as of this encounter (statuses as of 09/11/2023) Immunizations Name Administration Dates Next Due COVID-19 mRNA, LNP-s, No Pre serve, 2-Dose Series ([employer]) 08/24/2020,08/03/2020 TDAP (age 10 and older)(Boostrix) 07/21/2015 [...] 1:00 PM EDT Hem/Onc Treatment Hematology/Oncology Treatment, [address] [address] [facility], Chair10 Hem Onc [address] [place] [address] 09/19/2023 1:00 PM EDT Hem/Onc Treatment Hematology/Oncology Treatment, [address] [address] [facility], Chair1 Hem Onc [address] [place] [address] 10/25/2023 9:40 AM EDT [facility] [address] [place] [address] Alicia Moran CRNP [address] [place] [address] 02/27/2024 10:20 AM EDT Office Visit Family Practice [address] [place] [address] Amari Quesada PA-C [address] [place] [address] Health Maintenance Due Date Last Done Comments [...] filedocumented as of this encounter Care Teams Unit Assembler Relationship Specialty Start Date End Date Amari Quesada PA-C [address] [facility] [place] [phone] PCP - General Physician Foundry Metallurgist 07/31/23 documented as of this encounter
--- OUTSIDE RECORDS SUMMARY | 2023-09-27 15:42 | External Medical Summary | Summary of Care ---
Author Name Unknown Organization [facility] Address [address] [place] [address] Phone [phone] Care Team Providers Care Ship Engines Operating Engineer Name Role Phone Amari Quesada PA-C Primary Care Provide r Encounter Details Date Type Department Care Team ([facility] Contact Info) Description 09/12/2023 Orders Only Nutrition and Weight Management, [place] [address] [place], [place] [phone] Alicia Moran CRNP [address] [place] [address] Allergies Active Allergy Reactions Criticality Noted Date Comments Ciprofloxacin 04/24/2014 Sulfa Antibiotics Unknown 07/20/2018 Azithromycin Rash 07/20/2018 documented as of this encounter (statuses as of 09/12/2023) Medications Medication Sig Dispensed Refills Start Date End Date Status Nystatin 630338 UNIT/GM External Powder (Nystop)Indications :Vulvar irritation Apply [...] 1,000 mcgIndications:S/P gastric bypass 1000 mcg IM [id number] 03/31/2023 03/01/2024 Active documented as of this encounter (statuses as of 09/12/2023) Active Problems Problem Noted Date Diagnosed Date Iron deficiency anemia 08/21/2023 Intestinal postoperative nonabsorption 4 Fibroids, submucosal 06/10/2022 Overview: Had follow up with GAS LOAD DISPATCHER. Status post bilateral knee replacements 12/09/19 22 [...] 1:00 PM EDT Hem/Onc Treatment Hematology/Oncology Treatment, [address] [address] [facility], Chair10 Hem Onc [address] [place] [address] 09/19/2023 1:00 PM EDT Hem/Onc Treatment Hematology/Oncology Treatment, [address] [address] [facility], Chair1 Hem Onc [address] [place] [address] 10/25/2023 9:40 AM EDT Telemedicine Nutrition & Weight Management, [place] [address] [place] [address] Alicia Moran CRNP [address] [place] [address] 02/27/2024 10:20 AM EDT Office Visit Family Practice [place] [address] [place] [address] Amari Quesada PA-C [address] [place] [address] Health Maintenance Due Date Last Done Comments [...] filedocumented as of this encounter Care Teams Ship Engines Operating Engineer Relationship Specialty Start Date End Date Amari Quesada PA-C [address] [facility] [place] [address] PCP - General Physician Salt Refiner 07/31/23 documented as of this encounter
--- OUTSIDE RECORDS SUMMARY | 2023-09-27 15:42 | External Medical Summary | Summary of Care ---
Author Name Unknown Organization [facility] Address [address] [place] [address] Phone [phone] Care Team Providers Care Tools Developer Name Role Phone Amari Quesada PA-C Primary Care Provide r Encounter Details Date Type Department Care Team ([facility] Contact Info) Description 09/12/2023 Orders Only Nutrition and Weight Management, [place] [address] [place], [place] [id number] Alicia Moran CRNP [address] [place] [address] Allergies Active Allergy Reactions Criticality Noted Date Comments Ciprofloxacin 04/24/2014 Sulfa Antibiotics Unknown 07/20/2018 Azithromycin Rash 07/20/2018 documented as of this encounter (statuses as of 09/12/2023) Medications Medication Sig Dispensed Refills Start Date End Date Status Nystatin 469700 UNIT/GM External Powder (Nystop)Indications :Vulvar irritation Apply [...] 1,000 mcgIndications:S/P gastric bypass 1000 mcg IM [id number] 03/31/2023 03/01/2024 Active documented as of this encounter (statuses as of 09/12/2023) Active Problems Problem Noted Date Diagnosed Date Iron deficiency anemia 08/21/2023 Intestinal postoperative nonabsorption 4 Fibroids, submucosal 06/10/2022 Overview: Had follow up with FIELD OPERATIONS COORDINATOR. Status post bilateral knee replacements 12/09/19 22 [...] 1:00 PM EDT Hem/Onc Treatment Hematology/Oncology Treatment, [address] [address] [facility], Chair10 Hem Onc [address] [place] [address] 09/19/2023 1:00 PM EDT Hem/Onc Treatment Hematology/Oncology Treatment, [address] [address] [facility], Chair1 Hem Onc [address] [place] [address] 10/25/2023 9:40 AM EDT Telemedicine Nutrition & Weight Management, [place] [address] [place] [address] Alicia Moran CRNP [address] [place] [address] 02/27/2024 10:20 AM EDT Office Visit Family Practice [place] [place] [address] Amari Quesada PA-C [address] [place] [address] Health Maintenance Due Date Last Done Comments [...] filedocumented as of this encounter Care Teams Tools Developer Relationship Specialty Start Date End Date Amari Quesada PA-C [address] [facility] [place] [address] PCP - General Physician Shellacker 07/31/23 documented as of this encounter
--- OUTSIDE RECORDS SUMMARY | 2023-09-27 15:42 | External Medical Summary | Summary of Care ---
Author Name Unknown Organization [facility] [address] [place] [address] Phone [phone] Care Team Providers Care Dip Dyer Name Role Phone Amari Quesada PA-C Primary Care Provide r Reason for Visit * Reason Comments Treatment venofer Encounter Details Date Type Department Care Team (Latest Contact Info) Description 09/05/2023 11:30 AM EDT Hem/Onc Treatment Hematology/Oncolog y Treatment, [address] [address] [facility], Chair Hem Onc [address] [place] [address] Intestinal postoperative nonabsorption*; Iron deficiency anemia, unspecified iron deficiency anemia type Allergies Active Allergy Reactions Criticality Noted Date Comments Ciprofloxacin 04/24/2014 Sulfa Antibiotics Unknown 07/20/2018 Azithromycin Rash 07/20/2018 documented as of this encounter (statuses as of 09/05/2023) Medications Medication Sig Dispensed Refills Start Date End Date Status Nystatin 191385 UNIT/GM External Powder (Nystop)Indications :Vulvar irritation Apply [...] 1,000 mcgIndications:S/P gastric bypass 1000 mcg IM [id number] 03/31/2023 03/01/2024 Active documented as of this encounter (statuses as of 09/05/2023) Active Problems Problem Noted Date Diagnosed Date Iron deficiency anemia 08/21/2023 Intestinal postoperative nonabsorption 4 Fibroids, submucosal 06/10/2022 Overview: Had follow up with SYNTHETIC SOIL BLOCKS PULPER. 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 Chronic fatigue syndrome 02/08/2016 Pure hypercholesterolemia 02/08/2016 Vitamin D deficiency 02/08/2016 documented as of this encounter (statuses as of 09/05/2023) Resolved Problems Problem Noted Date Diagnosed Date Resolved Date Other specified arthritis, left knee 09/21/2021 12/08/2021 Bilateral chronic knee pain 07/05/2021 12/08/2021 Primary osteoarthritis of right hip 02/04/2021 04/13/2022 Nasal lesion 07/20/2018 06/10/2022 Anxiety 08/05/2014 12/08/2021 documented as of this encounter (statuses as of 09/05/2023) Immunizations Name Administration Dates Next Due COVID-19 mRNA, LNP-s, No Pre serve, 2-Dose Series ([employer]) 08/24/2020,08/03/2020 TDAP (age 10 and older)(Boostrix) 07/21/2015 [...] Burgess LPN - 09/05/2023 11:22 AM EDT [place] #4. Pt for Venofer infusion. States had years ago with no problems. documented in this encounter Plan of Treatment Upcoming Encounters Date Type Department Care Team (Late st Contact Info) Description 09/12/2023 11:30 AM EDT Hem/Onc Treatment Hematology/Oncology Treatment, [address] [place] [address] [facility], Chair5 Hem Onc [address] [facility], [place] [address] 09/19/2023 11:30 AM EDT Hem/Onc Treatment Hematology/Oncology Treatment, [facility] 400 [facility], [place] [address] [facility], Chair4 Hem Onc [address] [facility], [place] [address] 10/25/2023 9:40 AM EDT Telemedicine Nutrition & Weight Management, [place] [address] [place] [address] Alicia Moran CRNP [address] [place] [address] 02/27/2024 10:20 AM EDT Office Visit Family Practice [address] [place] [address] Amari Quesada PA-C [address] [place] [address] Health Maintenance Due Date Last Done Comments [...] ONCE PRN Other, Hypersensitivity Reaction, Starting on Mon09/05/23 at 1118, Until Mon09/06/23 at 1117, For 24 hours EPINEPHrine 1 MG/ML inj 0.3 mg 0.3 mg, Intramuscular, ONCE PRN Other, Hypersensitivity Reaction or Anaphylaxis, Starting on Mon09/05/23 at 1118, Until Mon09/06/23 at 1117, For 24 hours hEParin 100 UNIT/ML Lock Flush inj 500 Units 500 Units (5 mL), IV Lock, PRN Other, IV Flush, Starting on Mon09/05/23 at 1118, Until Mon09/06/23 at 1117, For 24 hours, Do not flush if lock, PICC, or central line not in place; IV infusing or unable to flush. Hydrocortisone Sod Suc (PF) (Solu-Cortef) inj 100 mg 100 mg, IV Push, ONCE PRN Other, Hypersensitivity Reaction, Starting on Mon09/05/23 at 1118, Until Mon09/06/23 at 1117, For 24 hours NSS infusion 500 mL, Intravenous, at 50 mL/hr, CONTINUOUS, Starting on Mon09/05/23 at 1230, Until Mon09/05/23 at 2229 Start Infusion 09/05/2023 11:29 AM EDT 500 mL 50 mL/hr oxygen GAS Inhalation, OXYGEN, First dose on Mon09/05/23 at 1600, Until Discontinued, Device/Managed by: Low [...] Push, PRN Other, IV Flush, Starting on Mon09/05/23 at 1118, Until Mon09/06/23 at 1117, For 24 hours, Do not flush if [...] 11:31 AM EDT 300 mg 166.67 mL/hr documented in this encounter Care Teams Dip Dyer Relationship Specialty Start Date End Date Amari Quesada PA-C [facility]8 [facility] [place] [phone] PCP - General Physician Dresser Tender 07/31/23 documented as of this encounter
--- OUTSIDE RECORDS SUMMARY | 2023-09-27 15:42 | External Medical Summary | Summary of Care ---
Author Name Unknown Organization [facility] Address [address] [place] [address] Phone [phone] Care Team Providers Care Analysis Manager Name Role Phone Amari Quesada PA-C Primary Care Provide r Reason for Visit * Reason Onset Date Comments Precert Approved 08/18/2023 Vandana Encounter Details Date Type Department Care Team ([facility] st Contact Info) Description 08/18/2023 Telephone Nutrition and Weight Management, [place] [address] [place] [address] Alicia Moran CRNP [address] [place] [address] Precert Approved (Vandana) Allergies Active Allergy Reactions Criticality Noted Date Comments Ciprofloxacin 04/24/2014 Sulfa Antibiotics Unknown 07/20/2018 Azithromycin Rash 07/20/2018 documented as of this encounter (statuses as of 08/25/2023) Medications Medication Sig Dispensed Refills Start Date End Date Status Nystatin 578353 UNIT/GM External Powder (Nystop)Indications :Vulvar irritation Apply [...] for 28 days. 3 mL 1 08/18/2023 09/22/2023 Active Naltrexone HCl 50 MG Oral Tablet (Revia)Indications: Abnormal weight gain,S/P gastric bypass Take 1/2 tab by mouth once a day for 1 week then take 1/2 tab twice a day (morning & late afternoon) 30 Tablet 2 08/18/2023 Active buPROPion HCl ER (SR) 150 MG Oral Tablet Extended Release 12 Hour (Wellbutrin SR)Indications:Abno rmal weight gain,S/P gastric bypass Take 1 tab by mouth once a day for 1 week then take 1 tab twice a day (morning & late afternoon) 60 Tablet 2 08/18/2023 Active Hospital, Clinic, or Other Facility Administered Medication Ordered Dose Route Frequency Start Date End Date Status vitamin b-12 (Cyanocobalamin) inj 1,000 mcgIndications:S/P gastric bypass 1000 mcg IM [id number] 03/31/2023 03/01/2024 Active documented as of this encounter (statuses as of 08/25/2023) Active Problems Problem Noted Date Diagnosed Date Iron deficiency anemia 08/21/2023 Intestinal postoperative nonabsorption 4 Fibroids, submucosal 06/10/2022 Overview: Had follow up with LEAD SYSTEMS ANALYST. 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 Chronic fatigue syndrome 02/08/2016 Pure hypercholesterolemia 02/08/2016 Vitamin D deficiency 02/08/2016 documented as of this encounter (statuses as of 08/25/2023) Resolved Problems Problem Noted Date Diagnosed Date Resolved Date Other specified arthritis, left knee 09/21/2021 12/08/2021 Bilateral chronic knee pain 07/05/2021 12/08/2021 Primary osteoarthritis of right hip 02/04/2021 04/13/2022 Nasal lesion 07/20/2018 06/10/2022 Anxiety 08/05/2014 12/08/2021 documented as of this encounter (statuses as of 08/25/2023) Immunizations Name Administration Dates Next Due COVID-19 [...] encounter Miscellaneous Notes * Telephone Encounter - Mela Russell LPN - 08/25/2023 2:27 PM EDT New or re-auth: New authorization Approved/Denied: Approved Drug Name and Formulation: Wegovy 1.7MG/0.75ML auto-injectors How Prescribed(directions/sig): WEEKLY Day Supply: 08/16 Did you receive insurance information from outside the chart? No, received insurance information within the chart Valid auth start date: 08/25/2023 Valid auth end date: 08/24/2024 Rx Insurance Info: ABI/ASHUTOSH MEADE Reference #: Rx Benefits Verified through/on date: EPIC 08/25/2023 Referral (TE) received from: Prescribing Clinic [facility]ie [facility] Medication Wrapper Stripper III P: [phone] F: [phone] 08/25/23,11:57 AM . * Telephone Encounter - Alicia Moran CRNP - 08/18/2023 2:08 PM EDT Patient was prescribed Wegovy. Patient had been on Wegovy 2.4 for extended time, recently not covered r/t weight restrictions on policy, has regained and should qualify now. Phentermine contraindicated due to anxiety Currently on Contrave Dx code: Obesity E66 Please start pre-authorization process Thanks SAUL Lu documented in this encounter Plan of Treatment Upcoming Encounters Date Type Department Care Team (Late st Contact Info) Description 09/05/2023 11:30 AM EDT Hem/Onc Treatment Hematology/Oncology Treatment, [facility] [address] [place], [place] [address] [facility], Chair9 Hem Onc [address] [place] [address] 09/12/2023 11:30 AM EDT Hem/Onc Treatment Hematology/Oncology Treatment, [address], [place] [address] [facility], Chair5 Hem Onc [address] [place] [address], [place] [address] 09/19/2023 11:30 AM EDT Hem/Onc Treatment Hematology/Oncology Treatment, [address], [place] [address] [facility], Chair4 Hem Onc [address] [place] [address], [place] [address] 10/25/2023 9:40 AM EDT Telemedicine Nutrition & Weight Management, [place] [address] [place] [address] Alicia Moran CRNP [address] [place] [address] 02/27/2024 10:20 AM EDT Office Visit Family Practice [address] [place] [address] Amari Quesada PA-C [address] [place] [address] Health Maintenance Due Date Last Done Comments [...] filedocumented as of this encounter Care Teams Analysis Manager Relationship Specialty Start Date End Date Amari Quesada PA-C [address] [facility] [place] [phone] PCP - General Physician Communication Consultant 07/31/23 documented as of this encounter
--- OUTSIDE RECORDS SUMMARY | 2023-09-27 15:43 | External Medical Summary | Summary of Care ---
Author Name Unknown Organization [facility] [address] [place] [address] Phone [phone] Care Team Providers Care Occupational Physician Name Role Phone Amari Quesada PA-C Primary Care Provide r Reason for Visit * Reason Onset Date Comments Scheduling 08/21/2023 Venofer Encounter Details Date Type Department Care Team ([facility] st Contact Info) Description 08/21/2023 Telephone Hematology/Oncology Treatment, [facility] [address] [place] [address] Alicia Moran CRNP [address] [place] [address] Scheduling (Tavo ) Allergies Active Allergy Reactions Criticality Noted Date Comments Ciprofloxacin 04/24/2014 Sulfa Antibiotics Unknown 07/20/2018 Azithromycin Rash 07/20/2018 documented as of this encounter (statuses as of 08/21/2023) Medications Medication Sig Dispensed Refills Start Date End Date Status Nystatin 672369 UNIT/GM External Powder (Nystop)Indications :Vulvar irritation Apply [...] for 28 days. 3 mL 1 08/18/2023 09/15/2023 Active Naltrexone HCl 50 MG Oral Tablet [...] 1,000 mcgIndications:S/P gastric bypass 1000 mcg IM [id number] 03/31/2023 03/01/2024 Active documented as of this encounter (statuses as of 08/21/2023) Active Problems Problem Noted Date Diagnosed Date Iron deficiency anemia 08/21/2023 Intestinal postoperative nonabsorption Fibroids, submucosal 06/10/2022 Overview: Had follow up with ANIMAL SURGEON. 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 Chronic fatigue syndrome 02/08/2016 Pure hypercholesterolemia 02/08/2016 Vitamin D deficiency 02/08/2016 documented as of this encounter (statuses as of 08/21/2023) Resolved Problems Problem Noted Date Diagnosed Date Resolved Date Other specified arthritis, left knee 09/21/2021 12/08/2021 Bilateral chronic knee pain 07/05/2021 12/08/2021 Primary osteoarthritis of right hip 02/04/2021 04/13/2022 Nasal lesion 07/20/2018 06/10/2022 Anxiety 08/05/2014 12/08/2021 documented as of this encounter (statuses as of 08/21/2023) Immunizations Name Administration Dates Next Due COVID-19 mRNA, LNP-s, No Pre serve, 2-Dose Series ([employer]) 08/24/2020,08/03/2020 TDAP (age 10 and older)(Boostrix) 07/21/2015 [...] encounter Miscellaneous Notes * Telephone Encounter - Cynthia Palm RN - 08/21/2023 11:43 AM EDT [place] plan built for Venofer. Routed to provider for signature. Please reach out to patient to schedule Venofer weekly x 3 2 hour SAUL Nogueira documented in this encounter Plan of Treatment Upcoming Encounters Date Type Department Care Team (Late st Contact Info) Description 10/25/2023 9:40 AM EDT Telemedicine Nutrition & Weight Management, [place] [address] [place] [address] Alicia Moran CRNP [address] [place] [address] 02/27/2024 10:20 AM EDT [facility] [address] [place] [address] Amari Quesada PA-C [address] [place] [address] Health Maintenance Due Date Last Done Comments HIV Screening 1973 HPV/Co-Test 1988 Mammogram 1998 Cologuard 12/28/2003 Fecal Occult Blood Test 12/28/2003 Sigmoidoscopy 12/28/2003 Zoster Vaccines (1 of 2) 2008 Depression Screening 08/08/2020 08/09/2019 COVID-19 Vaccine ( season) 2023 08/24/2020, 08/03/2020 Influenza Vaccine (FLU [...] filedocumented as of this encounter Care Teams Occupational Physician Relationship Specialty Start Date End Date Amari Quesada PA-C [address] [facility] [place] [phone] PCP - General Physician Shoe Packer 07/31/23 documented as of this encounter
--- OUTSIDE RECORDS SUMMARY | 2023-09-27 15:43 | External Medical Summary | Summary of Care ---
Author Name Unknown Organization [facility] Address [address] [place] [address] Phone [phone] Care Team Providers Care Rn Social Work Name Role Phone Amrai Quesada PA-C Primary Care Provide r Encounter Details Date Type Department Care Team ([facility] Contact Info) Description 08/21/2023 Orders Only Nutrition and Weight Management, [place] [address] [place], [place] [id number] Alicia Moran CRNP [address] [place] [address] Allergies Active Allergy Reactions Criticality Noted Date Comments Ciprofloxacin 04/24/2014 Sulfa Antibiotics Unknown 07/20/2018 Azithromycin Rash 07/20/2018 documented as of this encounter (statuses as of 08/21/2023) Medications Medication Sig Dispensed Refills Start Date End Date Status Nystatin 169359 UNIT/GM External Powder (Nystop)Indications :Vulvar irritation Apply [...] 1,000 mcgIndications:S/P gastric bypass 1000 mcg IM [id number] 03/31/2023 03/01/2024 Active documented as of this encounter (statuses as of 08/21/2023) Active Problems Problem Noted Date Diagnosed Date Iron deficiency anemia 08/21/2023 Intestinal postoperative nonabsorption 4 Fibroids, submucosal 06/10/2022 Overview: Had follow up with CERAMICS TEST ENGINEER. Status post bilateral knee replacements 12/09/19 22 [...] AM EDT Telemedicine Nutrition & Weight Management, [place] [address] [place] [address] Alicia Moran CRNP [address] [place] [address] 02/27/2024 10:20 AM EDT Office Visit Family Practice [address] [place] [phone] Amari Quesada PA-C [address] [place] [address] Health Maintenance Due Date Last Done Comments [...] filedocumented as of this encounter Care Teams Rn Social Work Relationship Specialty Start Date End Date Amari Quesada PA-C [address] [facility] [place] [phone] PCP - General Physician Forepart Rasper 07/31/23 documented as of this encounter
--- OUTSIDE RECORDS SUMMARY | 2023-09-27 15:43 | External Medical Summary | Summary of Care ---
Author Name Unknown Organization [facility] Address [address] [place] [address] Phone [phone] Care Team Providers Care Assistant Professor Of Radiology Name Role Phone Amari Quesada PA-C Primary Care Provide r Reason for Visit * Reason Onset Date Comments Precert In Process 08/18/2023 1 Georgie ALEX/ Corey Ross Encounter Details Date Type Department Care Team (Late st Contact Info) Description 08/18/2023 Telephone Nutrition and Weight Management, [place] [address] [address] [place] [address] Alicia Moran CRNP [address] [place] [address] Precert In Process (1 Georgie ALEX/Corey ... Allergies Active Allergy Reactions Criticality Noted Date Comments Ciprofloxacin 04/24/2014 Sulfa Antibiotics Unknown 07/20/2018 Azithromycin Rash 07/20/2018 documented as of this encounter (statuses as of 08/25/2023) Medications Medication Sig Dispensed Refills Start Date End Date Status Nystatin 477063 UNIT/GM External Powder (Nystop)Indications :Vulvar irritation Apply [...] for 28 days. 3 mL 1 08/18/2023 09/19/2023 Active Naltrexone HCl 50 MG Oral Tablet [...] 1,000 mcgIndications:S/P gastric bypass 1000 mcg IM [id number] 03/31/2023 03/01/2024 Active documented as of this encounter (statuses as of 08/25/2023) Active Problems Problem Noted Date Diagnosed Date Iron deficiency anemia 08/21/2023 Intestinal postoperative nonabsorption Fibroids, submucosal 06/10/2022 Overview: Had follow up with STRIPE MATCHER. Status post bilateral knee replacements 12/09/19 Obesity, [...] encounter Miscellaneous Notes * Telephone Encounter - Alicia Moran CRNP [...] 11:30 AM EDT Hem/Onc Treatment Hematology/[address], [address] [address] [facility], Chair9 Hem Onc [address] [place], [place] [address] [address] 09/12/2023 11:30 AM EDT Hem/Onc Treatment Hematology/Oncology Treatment, [address] [address] [facility], Chair5 Hem Onc [address] [place], [place] [address] [address] 09/19/2023 11:30 AM EDT Hem/Onc Treatment Hematology/Oncology Treatment, [address] [address] [facility], Chair4 Hem Onc [address] [place] [place] [address] 10/25/2023 9:40 AM EDT Telemedicine Nutrition & Weight Management, [place] [address] [place] [address] Dean AliciaSAUL Sosa [address] [place] [address] 02/27/2024 10:20 AM EDT Office Visit Family Practice [address], [place] [address] [place] [address] Amari Quesada PA-C [address] [place] [address] Health Maintenance Due Date Last Done Comments [...] filedocumented as of this encounter Care Teams Assistant Professor Of Radiology Relationship Specialty Start Date End Date Amari Quesada PA-C [address] [facility] [place] [phone] PCP - General Physician Ore Digger 07/31/23 documented as of this encounter
--- OUTSIDE RECORDS SUMMARY | 2023-09-27 15:43 | External Medical Summary | Summary of Care ---
Author Name Unknown Organization [facility] Address [address] [place] [address] Phone [phone] Care Team Providers Care Compensation Intern Name Role Phone Amari Quesada PA-C Primary Care Provide r Reason for Visit * Reason Onset Date Comments Precert In Process 08/18/2023 1 Georgie ALEX/ Corey Ross Encounter Details Date Type Department Care Team (Late st Contact Info) Description 08/18/2023 Telephone Nutrition and Weight Management, [place] [address] [place] [address] Alicia Moran CRNP [address] [place] [address] Precert In Process (1 Georgie ALEX/Corey ... Allergies Active Allergy Reactions Criticality Noted Date Comments Ciprofloxacin 04/24/2014 Sulfa Antibiotics Unknown 07/20/2018 Azithromycin Rash 07/20/2018 documented as of this encounter (statuses as of 08/21/2023) Medications Medication Sig Dispensed Refills Start Date End Date Status Nystatin 356188 UNIT/GM External Powder (Nystop)Indications :Vulvar irritation Apply [...] 1,000 mcgIndications:S/P gastric bypass 1000 mcg IM [id number] 03/31/2023 03/01/2024 Active documented as of this encounter (statuses as of 08/21/2023) Active Problems Problem Noted Date Diagnosed Date Fibroids, submucosal 06/10/2022 Overview: Had follow up with CLIENT ADVISOR. Status post bilateral knee replacements 12/09/19 22 [...] AM EDT Telemedicine Nutrition & Weight Management, [place] [address] [place] [address] Alicia Moran CRNP [address] [place] [address] 02/27/2024 10:20 AM EDT Office Visit Family Practice [address] [place] [address] Amari Quesada PA-C [address] [place] [address] Health Maintenance Due Date Last Done Comments [...] filedocumented as of this encounter Care Teams Compensation Intern Relationship Specialty Start Date End Date Amari Quesada PA-C [address] [facility] [place] [phone] PCP - General Physician Visiting Nurse 07/31/23 documented as of this encounter
--- OUTSIDE RECORDS SUMMARY | 2023-09-27 15:43 | External Medical Summary | Summary of Care ---
Author Name Unknown Organization [facility] [address] [place] [address] Phone [phone] Care Team Providers Care Reservoir Engineer Name Role Phone Amari Quesada PA-C Primary Care Provide r Reason for Visit * Reason Onset Date Comments Scheduling 08/21/2023 Venofer Encounter Details Date Type Department Care Team ([facility] st Contact Info) Description 08/21/2023 Telephone Hematology/Oncology Treatment, [facility] [address] [place] [address] Alicia Moran CRNP [address] [place] [address] Scheduling (Tavo ) Allergies Active Allergy Reactions Criticality Noted Date Comments Ciprofloxacin 04/24/2014 Sulfa Antibiotics Unknown 07/20/2018 Azithromycin Rash 07/20/2018 documented as of this encounter (statuses as of 08/24/2023) Medications Medication Sig Dispensed Refills Start Date End Date Status Nystatin 830156 UNIT/GM External Powder (Nystop)Indications :Vulvar irritation Apply [...] 1,000 mcgIndications:S/P gastric bypass 1000 mcg IM [id number] 03/31/2023 03/01/2024 Active documented as of this encounter (statuses as of 08/24/2023) Active Problems Problem Noted Date Diagnosed Date Iron deficiency anemia 08/21/2023 Intestinal postoperative nonabsorption 4 Fibroids, submucosal 06/10/2022 Overview: Had follow up with FIELD RESEARCH ASSISTANT. 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 Chronic fatigue syndrome 02/08/2016 Pure hypercholesterolemia 02/08/2016 Vitamin D deficiency 02/08/2016 documented as of this encounter (statuses as of 08/24/2023) Resolved Problems Problem Noted Date Diagnosed Date Resolved Date Other specified arthritis, left knee 09/21/2021 12/08/2021 Bilateral chronic knee pain 07/05/2021 12/08/2021 Primary osteoarthritis of right hip 02/04/2021 04/13/2022 Nasal lesion 07/20/2018 06/10/2022 Anxiety 08/05/2014 12/08/2021 documented as of this encounter (statuses as of 08/24/2023) Immunizations Name Administration Dates Next Due COVID-19 [...] encounter Miscellaneous Notes * Telephone Encounter - Simona Gibbs OSA - 08/24/2023 12:13 PM EDT Pt scheduled for weekly Venofer Infusion x 3 starting on 09/05/2023. Pt aware. * Telephone Encounter - Nisha Torres LPN - 08/23/2023 2:47 PM EDT Left voicemail for patient to return call, return number provided. * Telephone Encounter - Keli Jurado OSA - 08/21/2023 4:52 PM EDT Jimi called you back Please call her again thank you * Telephone Encounter - Cynthia Palm RN - 08/21/2023 11:43 AM EDT [place] plan built for Venofer. Routed to provider for signature. Please reach out to patient to schedule Venofer weekly x 3 2 hour AliciaSAUL Raymond documented in this encounter Plan of Treatment Upcoming Encounters Date Type Department Care Team (Late st Contact Info) Description 09/05/2023 11:30 AM EDT Hem/Onc Treatment Hematology/Oncology Treatment, [address] [place] [address] [facility], Chair9 Hem Onc [address] [facility], [place] [address] 09/12/2023 11:30 AM EDT Hem/Onc Treatment Hematology/Oncology Treatment, [address], [place] [address] [facility], Chair5 Hem Onc [address] [place] [address], [place] [address] 09/19/2023 11:30 AM EDT Hem/Onc Treatment Hematology/Oncology Treatment, [address], [place] [address] [facility], Chair4 Hem Onc [address] [place] [address], [place] [address] 10/25/2023 9:40 AM EDT Telemedicine Nutrition & Weight Management, [place] [address] [place] [address] Alicia Moran CRNP [address] [place] [address] 02/27/2024 10:20 AM EDT Office Visit Family Practice [facility] [address] [place] [address] Amari Quesada PA-C [address] [place] [address] Health Maintenance Due Date Last Done Comments [...] filedocumented as of this encounter Care Teams Reservoir Engineer Relationship Specialty Start Date End Date Amari Quesada PA-C [facility] [place] [address] PCP - General Physician Supervisor Hydrochloric Area 07/31/23 documented as of this encounter
--- OUTSIDE RECORDS SUMMARY | 2023-09-27 15:43 | External Medical Summary | Summary of Care ---
Author Name Unknown Organization [facility] [address] [place] [address] Phone [phone] Care Team Providers Care Bale Piler Name Role Phone Amari Quesada PA-C Primary Care Provide r Reason for Visit * Reason Onset Date Comments Scheduling 08/21/2023 Venofer Encounter Details Date Type Department Care Team ([facility] st Contact Info) Description 08/21/2023 Telephone Hematology/Oncology Treatment, [facility] [address] [place] [address] Alicia Moran CRNP [address] [place] [address] Scheduling (Tavo ) Allergies Active Allergy Reactions Criticality Noted Date Comments Ciprofloxacin 04/24/2014 Sulfa Antibiotics Unknown 07/20/2018 Azithromycin Rash 07/20/2018 documented as of this encounter (statuses as of 08/21/2023) Medications Medication Sig Dispensed Refills Start Date End Date Status Nystatin [id number] UNIT/GM External Powder (Nystop)Indications :Vulvar irritation Apply [...] 1,000 mcgIndications:S/P gastric bypass 1000 mcg IM [id number] 03/31/2023 03/01/2024 Active documented as of this encounter (statuses as of 08/21/2023) Active Problems Problem Noted Date Diagnosed Date Iron deficiency anemia 08/21/2023 Intestinal postoperative nonabsorption Fibroids, submucosal 06/10/2022 Overview: Had follow up with SULFONATOR OPERATOR. Status post bilateral knee replacements 12/09/19 22 [...] mRNA, LNP-s, No Pre serve, 2-Dose Series (Xeko) 08/24/2020,08/03/2020 TDAP (age 10 and older)(Boostrix) 07/21/2015 [...] encounter Miscellaneous Notes * Telephone Encounter - Keli Jurado OSA - 08/21/2023 4:52 PM EDT Jimi called you back Please call her again thank you * Telephone Encounter - Cynthia Palm RN - 08/21/2023 11:43 AM EDT [place] plan built for Venofer. Routed to provider for signature. Please reach out to patient to schedule Venofer weekly x 3 2 hour SAUL Nogueira documented in this encounter Plan of Treatment Upcoming Encounters Date Type Department Care Team (Late st Contact Info) Description 10/25/2023 9:40 AM EDT Telemedicine Nutrition & Weight Management, [place] [address] [place] [address] Alicia Moran CRNP [address] [place] [address] 02/27/2024 10:20 AM EDT Office Visit Family Practice [address] [place] [address] Amari Quesada PA-C [address] [place] [address] Health Maintenance Due Date Last Done Comments [...] filedocumented as of this encounter Care Teams Bale Piler Relationship Specialty Start Date End Date Amari Quesada PA-C [address] [facility] [place] [address] PCP - General Physician Payable Manager 07/31/23 documented as of this encounter
--- OUTSIDE RECORDS SUMMARY | 2023-09-27 15:43 | External Medical Summary | Summary of Care ---
Author Name Unknown Organization [facility] [address] [place] [address] Phone [phone] Care Team Providers Care Oncology Transplant Network Manager Name Role Phone Amari Quesada PA-C Primary Care Provide r Reason for Visit * Reason Onset Date Comments Scheduling 08/21/2023 Venofer Encounter Details Date Type Department Care Team ([facility] st Contact Info) Description 08/21/2023 Telephone Hematology/Oncology Treatment, [facility] [address] [place] [address] Alicia Moran CRNP [address] [place] [address] Scheduling (Tavo ) Allergies Active Allergy Reactions Criticality Noted Date Comments Ciprofloxacin 04/24/2014 Sulfa Antibiotics Unknown 07/20/2018 Azithromycin Rash 07/20/2018 documented as of this encounter (statuses as of 08/23/2023) Medications Medication Sig Dispensed Refills Start Date End Date Status Nystatin [id number] UNIT/GM External Powder (Nystop)Indications :Vulvar irritation Apply [...] 1,000 mcgIndications:S/P gastric bypass 1000 mcg IM [id number] 03/31/2023 03/01/2024 Active documented as of this encounter (statuses as of 08/23/2023) Active Problems Problem Noted Date Diagnosed Date Iron deficiency anemia 08/21/2023 Intestinal postoperative nonabsorption 4 Fibroids, submucosal 06/10/2022 Overview: Had follow up with PROCESS IMPROVEMENT ENGINEER. 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 Chronic fatigue syndrome 02/08/2016 Pure hypercholesterolemia 02/08/2016 Vitamin D deficiency 02/08/2016 documented as of this encounter (statuses as of 08/23/2023) Resolved Problems Problem Noted Date Diagnosed Date Resolved Date Other specified arthritis, left knee 09/21/2021 12/08/2021 Bilateral chronic knee pain 07/05/2021 12/08/2021 Primary osteoarthritis of right hip 02/04/2021 04/13/2022 Nasal lesion 07/20/2018 06/10/2022 Anxiety 08/05/2014 12/08/2021 documented as of this encounter (statuses as of 08/23/2023) Immunizations Name Administration Dates Next Due COVID-19 mRNA, LNP-s, No Pre serve, 2-Dose Series (PlayData) 08/24/2020,08/03/2020 TDAP (age 10 and older)(Boostrix) 07/21/2015 [...] encounter Miscellaneous Notes * Telephone Encounter - Nisha Torres LPN - 08/23/2023 2:47 PM EDT Left voicemail for patient to return call, return number provided. * Telephone Encounter - Keli Jurado OSA - 08/21/2023 4:52 PM EDT Jimi called you back Please call her again thank you * Telephone Encounter - Cynthia Palm, RN - 08/21/2023 11:43 AM EDT [place] plan built for Venofer. Routed to provider for signature. Please reach out to patient to schedule Venofer weekly x 3 2 hour SAUL Nogueira documented in this encounter Plan of Treatment Upcoming Encounters Date Type Department Care Team (Late st Contact Info) Description 10/25/2023 9:40 AM EDT Telemedicine Nutrition & Weight Management, [place] [address] [facility] [place] [address] Alicia Moran CRNP [address] [place] [address] 02/27/2024 10:20 AM EDT [facility] [address] [place] [address] Amari Quesada PA-C [address] [place] [address] Health Maintenance Due Date Last Done Comments [...] filedocumented as of this encounter Care Teams Oncology Transplant Network Manager Relationship Specialty Start Date End Date Amari Quesada PA-C [address] [place] [address] PCP - General Physician Station Master 07/31/23 documented as of this encounter
--- OUTSIDE RECORDS SUMMARY | 2023-09-27 15:43 | External Medical Summary | Summary of Care ---
Author Name Unknown Organization [facility] Address [address] [place] [address] Phone [phone] Care Team Providers Care Book Store Associate Name Role Phone Amari Quesada PA-C Primary Care Provide r Reason for Visit * Reason Onset Date Comments Medication Pre-auth 08/18/2023 Encounter Details Date Type Department Care Team ([facility] st Contact Info) Description 08/18/2023 Telephone Nutrition and Weight Management, [place] [address] [place] [address] Alicia Moran CRNP [address] [place], [place] [id number] Medication Pre-auth Allergies Active Allergy Reactions Criticality Noted Date Comments Ciprofloxacin 04/24/2014 Sulfa Antibiotics Unknown 07/20/2018 Azithromycin Rash 07/20/2018 documented as of this encounter (statuses as of 08/18/2023) Medications Medication Sig Dispensed Refills Start Date End Date Status Nystatin [id number] UNIT/GM External Powder (Nystop)Indications :Vulvar irritation Apply [...] 1,000 mcgIndications:S/P gastric bypass 1000 mcg IM [id number] 03/31/2023 03/01/2024 Active documented as of this encounter (statuses as of 08/18/2023) Active Problems Problem Noted Date Diagnosed Date Fibroids, submucosal 06/10/2022 Overview: Had follow up with BOARD MEMBER. 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 Chronic fatigue syndrome 02/08/2016 Pure hypercholesterolemia 02/08/2016 Vitamin D deficiency 02/08/2016 documented as of this encounter (statuses as of 08/18/2023) Resolved Problems Problem Noted Date Diagnosed Date Resolved Date Other specified arthritis, left knee 09/21/2021 12/08/2021 Bilateral chronic knee pain 07/05/2021 12/08/2021 Primary osteoarthritis of right hip 02/04/2021 04/13/2022 Nasal lesion 07/20/2018 06/10/2022 Anxiety 08/05/2014 12/08/2021 documented as of this encounter (statuses as of 08/18/2023) Immunizations Name Administration Dates Next Due COVID-19 [...] AM EDT Telemedicine Nutrition & Weight Management, [place] [address] [place] [address] Alicia Moran CRNP [address] [place] [address] 02/27/2024 10:20 AM EDT [facility] [address] [place] [place] [address] Amari Quesada PA-C [address] [place] [place] [address] Health Maintenance Due Date Last Done Comments HIV Screening 1973 HPV/Co-Test 1988 Mammogram 1998 Cologuard 12/28/2003 Fecal Occult Blood Test 12/28/2003 Sigmoidoscopy 12/28/2003 Zoster Vaccines (1 of 2) 2008 Depression Screening 08/08/2020 08/09/2019 COVID-19 Vaccine ( season) 2023 08/24/2020, 08/03/2020 Influenza Vaccine (FLU shot) (#1) 2023 Cervical Cancer Screening 03/18/2024 Pap Smear 03/18/2024 03/18/2021 DTaP,Tdap,and Td Vaccines (3 - Td or Tdap) 07/20/2025 07/21/2015, 07/21/2015 Diabetes Screening 04/03/2026 04/03/2023, 1 05/31/2022, 06/03/2022, Additional history exists Lipid Panel 03/31/2028 03/31/2023, 05/22, 06/28/2021, Additional history exists Colonoscopy 08/20/2029 08/21/2019 Colorectal [...] filedocumented as of this encounter Care Teams Book Store Associate Relationship Specialty Start Date End Date Amari Quesada PA-C [address] [facility] [place] [phone] PCP - General Physician Cylinder Machine Operator 07/31/23 documented as of this encounter
--- OUTSIDE RECORDS SUMMARY | 2023-09-27 15:43 | External Medical Summary | Summary of Care ---
Author Name Unknown Organization [facility] Address [address] [place] [address] Phone [phone] Care Team Providers Care Gas Engine Performance Engineer Name Role Phone Amari Quesada PA-C Primary Care Provide r Reason for Visit * Reason Comments Outpatient Testing Encounter Details Date Type Department Care Team (Late st Contact Info) Description 08/18/2023 2:20 PM EDT Laboratory Outpatient Laboratory, [place] [address] [place] [address] [place], Lab B1a [address] [place] [address] Iron deficiency anemia, unspecified iron deficiency anemia type*; Pure hypercholesterolemia; Vitamin D deficiency; Vitamin B12 deficiency; S/P gastric bypass; Intestinal postoperative nonabsorption Allergies Active Allergy Reactions Criticality Noted Date Comments Ciprofloxacin 04/24/2014 Sulfa Antibiotics Unknown 07/20/2018 Azithromycin Rash 07/20/2018 documented as of this encounter (statuses as of 08/21/2023) Medications Medication Sig Dispensed Refills Start Date End Date Status Nystatin 667375 UNIT/GM External Powder (Nystop)Indications :Vulvar irritation Apply [...] 1,000 mcgIndications:S/P gastric bypass 1000 mcg IM [id number] 03/31/2023 03/01/2024 Active documented as of this encounter (statuses as of 08/21/2023) Active Problems Problem Noted Date Diagnosed Date Fibroids, submucosal 06/10/2022 Overview: Had follow up with [employer]OR [employer]. Status post bilateral knee replacements 12/09/19 22 [...] as of this encounter Miscellaneous Notes * Addendum Note - Ainsley Mirza CRNP - 08/21/2023 11:38 AM EDTAddended by: AINSLEY MIRZA on: 08/21/2023 11:38 AM Modules accepted: Orders documented in this encounter Plan of Treatment Upcoming Encounters Date Type Department Care Team (Late st Contact Info) Description 10/25/2023 9:40 AM EDT Telemedicine Nutrition & Weight Management, [place] [address] [place] [address] Ainsley Mirza CRNP [facility] [address] 02/27/2024 10:20 AM EDT Office Visit Family [facility] [place] [facility] [address] [place] [address] Amari Quesada PA-C [address] [place] [address] Pending Results Name Type Priority Associated Diagnoses Date /Time VITAMIN A (RETINOL) Lab Routine S/P gastric bypass Intestinal postoperative nonabsorption 08/18/2023 2:23 PM EDT VITAMIN B1 (THIAMINE), BLOOD, LC/MS/MS Lab Routine S/P gastric bypass Intestinal postoperative nonabsorption 08/18/2023 2:23 PM EDT Health Maintenance Due Date Last Done Comments HIV Screening 1973 HPV/Co-Test 1988 Mammogram 1998 Cologuard 12/28/2003 Fecal Occult Blood Test 12/28/2003 Sigmoidoscopy 12/28/2003 Zoster Vaccines (1 of 2) 2008 Depression Screening 08/08/2020 08/09/2019 COVID-19 Vaccine (3 - 2022- season) 2023 08/24/2020, 08/03/2020 Influenza Vaccine (FLU [...] Not on filedocumented as of this encounter Procedures Procedure Name Priority Date/Time Associated Diagnosis Comments LIPID PANEL WITH DIRECT LDL IF TG IS HIGH Routine 08/18/2023 2:23 PM EDT Pure hypercholesterolemia Vitamin D deficiency Vitamin B12 deficiency S/P gastric bypass 25-HYDROXY VITAMIN D Routine 08/18/2023 2:23 PM EDT Pure hypercholesterolemia Vitamin D deficiency Vitamin B12 deficiency S/P gastric bypass HEMOGLOBIN A1C Routine 08/18/2023 2:23 PM EDT S/P gastric bypass Intestinal postoperative nonabsorption ZINC Routine 08/18/2023 2:23 PM EDT S/P gastric bypass Intestinal postoperative nonabsorption METHYLMALONIC ACID, SERUM Routine 08/18/2023 2:23 PM EDT S/P gastric bypass Intestinal postoperative nonabsorption INSULIN Routine 08/18/2023 2:23 PM EDT S/P gastric bypass Intestinal postoperative nonabsorption COMPREHENSIVE METABOLIC PANEL Routine 08/18/2023 2:23 PM EDT S/P gastric bypass Intestinal postoperative nonabsorption FOLIC ACID Routine 08/18/2023 2:23 PM EDT S/P gastric bypass Intestinal postoperative nonabsorption IRON SCREEN, INCLUDING TIBC Routine 08/18/2023 2:23 PM EDT S/P gastric bypass Intestinal postoperative nonabsorption PTH Routine 08/18/2023 2:23 PM EDT S/P gastric bypass Intestinal postoperative nonabsorption CBC Routine 08/18/2023 2:23 PM EDT S/P gastric bypass Intestinal postoperative nonabsorption FERRITIN Routine 08/18/2023 2:23 PM EDT S/P gastric bypass Intestinal postoperative nonabsorption VITAMIN B12 Routine 08/18/2023 2:23 PM EDT Pure hypercholesterolemia Vitamin D deficiency Vitamin B12 deficiency S/P gastric bypass COPPER, SERUM OR PLASMA Routine 08/18/2023 2:23 PM EDT S/P gastric bypass Intestinal postoperative nonabsorption documented in this encounter Results * COPPER, SERUM OR PLASMA (08/18/2023 2:23 PM EDT) Copper 112 70 - 175 mcg/dL 08/20/2023 9:54 AM EDT [facility] [place] Comment: This test was developed and its analytical performance characteristics have been determined by [facility] [place], [place]. It has not been cleared or approved by the U.S. Food and Drug Administration. This assay has been validated pursuant to the CLIA regulations and is used for clinical purposes. Test Performed at: [facility] [address] [place], [place] James Rankin M.D., Ph.D.,Director of Laboratories Blood Venous blood specimen / Unknown Venipuncture / Unknown 08/18/2023 2:23 PM EDT 08/18/2023 2:40 PM EDT Ainsley HUGHES LAB BLOOD ORDERAB LES Performing Organization Address [facility] de Phone Number [place] [phone] [place], [place] * METHYLMALONIC ACID, SERUM (08/18/2023 2:23 PM EDT) Methylmalonic Acid 122 87 - 318 nmol/L 08/21/2023 3:52 AM EDT [facility] [place] Comment: This test was developed and its analytical performance characteristics have been determined by [facility] [place], [place]. It has not been cleared or approved by the U.S. Food and Drug Administration. This assay has been validated pursuant to the CLIA regulations and is used for clinical purposes. Test Performed at: [facility] [address] James Rankin M.D., Ph.D.,Director of Laboratories Blood Venous blood specimen / Unknown Venipuncture / Unknown 08/18/2023 2:23 PM EDT 08/18/2023 2:41 PM EDT Ainsley BOOKERNP LAB BLOOD ORDERAB LES Performing Organization Address [facility] de Phone Number [facility] [address] [place] [address] * ZINC (08/18/2023 2:23 PM EDT) Zinc 69 60 - 130 mcg/dL 08/19/2023 5:43 PM EDT [facility] [place] Comment: This test was developed and its analytical performance characteristics have been determined by [facility]. It has not been cleared or approved by the U.S. Food and Drug Administration. This assay has been validated pursuant to the CLIA regulations and is used for clinical purposes. Test Performed at: [facility] [address] [place] [address] James Rankin M.D., Ph.D.,Director of Laboratories Blood Venous blood specimen / Unknown Venipuncture / Unknown 08/18/2023 2:23 PM EDT 08/18/2023 2:40 PM EDT Ainsley Mirza SAUL LAB BLOOD ORDERAB LES [facility] [place] [address] [place] [address] * (ABNORMAL) COMPREHENSIVE METABOLIC PANEL (08/18/2023 2:23 PM EDT) BUN 14 6 - 20 mg/dL 08/18/2023 3:20 PM EDT [facility] Creatinine 0.7 0.5 - 1.0 mg/dL 08/18/2023 3:20 PM EDT [facility] Estimated Glomerular Filtration Rate >90 >=60 mL/min 08/18/2023 3:20 PM EDT [facility] Comment:eGFR is calculated b ased on the CKD-EPI 2020 equation Sodium 140 135 - 146 mmol/L 08/18/2023 3:20 PM EDT [facility] Potassium 4.2 3.5 - 5.1 mmol/L 08/18/2023 3:20 PM EDT [facility] Chloride 108(H) 98 - 107 mmol/L 08/18/2023 3:20 PM EDT [facility] CO2 24 22 - 32 mmol/L 08/18/2023 3:20 PM EDT [facility] Anion Gap 8 7 - 15 mmol/L 08/18/2023 3:20 PM EDT [facility] Glucose 96 70 - 120 mg/dL 08/18/2023 3:20 PM EDT [facility] Albumin 4.0 3.8 - 5.0 g/dL 08/18/2023 3:20 PM EDT [facility] AST 19 10 - 35 U/L 08/18/2023 3:20 PM EDT [facility] Alkaline Phosphatase 79 35 - 130 U/L 08/18/2023 3:20 PM EDT [facility] Bilirubin, Total 0.4 <=1.2 mg/dL 08/18/2023 3:20 PM EDT [facility] Calcium 9.0 8.4 - 10.2 mg/dL 08/18/2023 3:20 PM EDT [facility] Protein 7.2 6.0 - 8.3 g/dL 08/18/2023 3:20 PM EDT LABORATORY C ALT 15 10 - 35 U/L 08/18/2023 3:20 PM EDT LAB[facility]ATORY [facility] Blood Venous blood specimen / Unknown Venipuncture / Unknown 08/18/2023 2:23 PM EDT 08/18/2023 2:50 PM EDT Ainsley HUGHES LAB BLOOD ORDERAB LES Performing Organization Address City/[facility]/ZIP Co de Phone Number [facility]ATORY [facility] [address] [place] [address] * INSULIN (08/18/2023 2:23 PM EDT) Insulin 21 3 - 25 uU/mL 08/18/2023 4:10 PM EDT LAB[facility]ORY [facility] Comment:The above reference interval is based on fasting status. Blood Venous blood specimen / Unknown Venipuncture / Unknown 08/18/2023 2:23 PM EDT 08/18/2023 2:42 PM EDT Ainsley HUGHES LAB BLOOD ORDERAB LES Performing Organization Address City/[facility]/ZIP Co de Phone Number LAB[facility]ATORY [facility] [address] [place] [address] * FOLIC ACID (08/18/2023 2:23 PM EDT) Folic Acid 15.0 >4.5 ng/mL 08/18/2023 4:16 PM EDT LAB[facility]ORY [facility] Blood Venous blood specimen / Unknown Venipuncture / Unknown 08/18/2023 2:23 PM EDT 08/18/2023 2:41 PM EDT Ainsley HUGHES LAB BLOOD ORDERAB LES Performing Organization Address City/[facility]/ZIP Co de Phone Number LABORATORY [facility] [address] [place] [address] * PTH (08/18/2023 2:23 PM EDT) [facility] PTH 52 15 - 65 pg/mL 08/18/2023 4:16 PM EDT LABORATORY [facility] Blood Venous blood specimen / Unknown Venipuncture / Unknown 08/18/2023 2:23 PM EDT 08/18/2023 2:41 PM EDT Ainsley BOOKERNP LAB BLOOD ORDERAB LES Performing Organization Address [facility] de Phone Number LABORATORY [facility] [address] [place] [address] * HEMOGLOBIN A1C (08/18/2023 2:23 PM EDT) [facility] Hemoglobin A1C 5.3 4.0 - 5.6 % 08/18/2023 3:39 PM EDT LAB[facility]ATORY [facility] Comment:The use of HbA1c to monitor glycemic status is based on normal hemoglobin and HbA composition. This test should not be used in patients with abnormal hemoglobin that affects the half life of the red blood cell or the in vivo glycation rates. Estimated Average Glucose 105 <126 mg/dL 08/18/2023 3:39 PM EDT LAB[facility]ATORY [facility] Blood Venous blood specimen / Unknown Venipuncture / Unknown 08/18/2023 2:23 PM EDT 08/18/2023 2:51 PM EDT Ainsley BOOKERNP LAB BLOOD ORDERAB LES Performing Organization Address [facility] Co de Phone Number LABORATORY [facility] [address] [place] [address] * (ABNORMAL) FERRITIN (08/18/2023 2:23 PM EDT) [facility] Ferritin 11(L) 13 - 150 ng/mL 08/18/2023 3:45 PM EDT LAB[facility]ATORY [facility] Comment:Postmenopausal women have higher ferritin levels than pre-menopausal women. The above reference interval is based on pre-menopausal women. Blood Venous blood specimen / Unknown Venipuncture / Unknown 08/18/2023 2:23 PM EDT 08/18/2023 2:50 PM EDT Ainsley HUGHES LAB BLOOD ORDERAB LES Performing Organization Address [facility] de Phone Number LABORATORY [facility] [address] [place] [address] * (ABNORMAL) IRON SCREEN, INCLUDING TIBC (08/18/2023 2:23 PM EDT) Iron 21(L) 33 - 151 ug/dL 08/18/2023 3:20 PM EDT [facility] Iron Binding Capacity 447(H) 250 - 425 ug/dL 08/18/2023 3:20 PM EDT [facility] Transferrin Saturation Percent 5(L) 15 - 55 % 08/18/2023 3:20 PM EDT [facility] Blood Venous blood specimen / Unknown Venipuncture / Unknown 08/18/2023 2:23 PM EDT 08/18/2023 2:50 PM EDT Ainsley BOOKERNP LAB BLOOD ORDERAB LES Performing Organization Address [facility] de Phone Number LABORATORY [facility] [address] [place] [address] * CBC (08/18/2023 2:23 PM EDT) WBC 5.79 4.00 - 10.80 K/uL 08/18/2023 3:00 PM EDT [facility] RBC 4.63 3.85 - 5.15 M/uL 08/18/2023 3:00 PM EDT [facility] HGB 12.3 12.0 - 15.3 g/dL 08/18/2023 3:00 PM EDT [facility] HCT 39.5 36.0 - 45.2 % 08/18/2023 3:00 PM EDT [facility] MCV 85.3 81.5 - 97.5 fL 08/18/2023 3:00 PM EDT [facility] MCH 26.6 27.0 - 34.0 pg 08/18/2023 3:00 PM EDT LABORATORY [facility] MCHC 31.1 32.0 - 36.0 g/dL 08/18/2023 3:00 PM EDT LAB[facility]ATORY [facility] RDW 15.9 11.5 - 15.5 % 08/18/2023 3:00 PM EDT LAB[facility]ORY [facility] PLT 258 140 - 400 K/uL 08/18/2023 3:00 PM EDT LAB[facility]ORY [facility] MPV 10.5 6.6 - 11.1 fL 08/18/2023 3:00 PM EDT LAB[facility]ORY [facility] nRBCs 0 <=0 /100 WBCs 08/18/2023 3:00 PM EDT LAB[facility]ORY [facility] Blood Venous blood specimen / Unknown Venipuncture / Unknown 08/18/2023 2:23 PM EDT 08/18/2023 2:51 PM EDT Ainsley BOOKERNP LAB BLOOD ORDERAB LES Performing Organization Address City/State/[facility] Co de Phone Number LABORATORY [facility] [address] [place] [address] * LIPID PANEL WITH DIRECT LDL IF TG IS HIGH (08/18/2023 2:23 PM EDT) Triglycerides 99 <=174 mg/dL 08/18/2023 3:20 PM EDT LAB[facility]ATORY [facility] Comment: Triglyceride Reference Ranges (mg/dL): <150 Acceptable 150-174 Borderline high 175-499 High >=500 Very high Cholesterol 193 <200 mg/dL 08/18/2023 3:20 PM EDT LAB[facility]ORY [facility] Comment: Total Cholesterol Reference Ranges (mg/dL): <200 Desirable 200-239 Borderline high >=240 High HDL Cholesterol 91 >49 mg/dL 3:20 PM EDT LAB[facility]ATORY [facility] Comment: HDL Cholesterol Reference Ranges (mg/dL): >=60 High (Desirable) <50 Low (Undesirable) For Females <40 Low (Undesirable) For Males Non-HDL Cholesterol 102 <=159 mg/dL 08/18/2023 3:20 PM EDT LAB[facility]ORY [facility] Comment: Non-HDL Cholesterol Reference Range (mg/dL): <100 Target level for high risk ASCVD patient <130 Optimal for general population 130-159 Near optimal for general population 160-189 Borderline High 190-219 High >=220 Very High LDL Cholesterol 82 <=129 mg/dL 08/18/2023 3:20 PM EDT LAB[facility]ATORY [facility] Comment: LDL Cholesterol Reference Ranges (mg/dL): <70 Target level for high risk ASCVD patient <100 Optimal for general population 100-129 Near optimal for general population 130-159 Borderline high 160-189 High >=190 Very high Blood Venous blood specimen / Unknown Venipuncture / Unknown 08/18/2023 2:23 PM EDT 08/18/2023 2:50 PM EDT Amari Quesada PA-C LAB BLOOD ORD ERABLES LABORATORY [place] [address] [place] [address] * 25-HYDROXY VITAMIN D (08/18/2023 2:23 PM EDT) 25-Hydroxy Vitamin D 23 >19 ng/mL 08/18/2023 4:16 PM EDT LAB[facility]ATORY [facility] Blood Venous blood specimen / Unknown Venipuncture / Unknown 08/18/2023 2:23 PM EDT 08/18/2023 2:41 PM EDT Narrative LAB[facility]ATORY [facility] - 08/18/2023 4:16 PM EDT Deficient: <20 ng/mL Insufficient: 20-29 ng/mL Recommended/Optimum:30-50 ng/mL Vitamin D intoxication is rare. If suspicious of Vitamin D toxicity, evaluation of serum Calcium and PTH is recommended. Amari Quesada PA-C LAB BLOOD ORD ERACAMRYN LABORATORY [place] [address] [place] [address] * VITAMIN B12 (08/18/2023 2:23 PM EDT) Vitamin B12 439 232 - 1,245 pg/mL 08/18/2023 4:16 PM EDT LAB[facility]ATORY [facility] Blood Venous blood specimen / Unknown Venipuncture / Unknown 08/18/2023 2:23 PM EDT 08/18/2023 2:41 PM EDT Amari Quesada PA-C LAB BLOOD ORD ERABLES LAB[facility]ATORY [facility] [address] [place] [address] documented in this encounter Visit Diagnoses Diagnosis Iron deficiency anemia, unspecified iron deficiency anemia type- Primary Pure hypercholesterolemia Vitamin D deficiency Unspecified vitamin D deficiency Vitamin B12 deficiency Other B-complex deficiencies S/P gastric bypass Bariatric surgery status Intestinal postoperative nonabsorption Other and unspecified postsurgical nonabsorption documented in this encounter Care Teams Gas Engine Performance Engineer Relationship Specialty Start Date End Date Amari Quesada PA-C [address] [facility] [place] [id number] PCP - General Physician Access Developer 07/31/23 documented as of this encounter
--- OUTSIDE RECORDS SUMMARY | 2023-09-27 15:43 | External Medical Summary | Summary of Care ---
Author Name Unknown Organization [facility] Address [address] [place] [address] Phone [phone] Care Team Providers Care Touch Up Worker Name Role Phone Amari Quesada PA-C Primary Care Provide r Reason for Referral * Evaluate & Treat - Unlimited Visits (Within 10 days (routine)) - Authorized Specialty Diagnoses / Procedures Referred By Contact Referred To Contact GI NUTRITION/IM / Gastroenterology Diagnoses S/P gastric bypass Obesity, Class I, BMI 30.0-34.9 (see actual BMI) Amari Quesada PA-C [address] [place] [address] Referral ID Status Reason Start Date Expiration Date Visits Requested Visits Authorized [id number] Authorized Specialty Services Required 07/31/2023 07/20/2024 999 999 Question Answer Referral Priority Within 10 days (routine) Where should this appointment be scheduled? [facility] For what condition is the patient being seen? Dietary Weight Loss - Diet Specific Conditions * Medication Prior Authorization - Denied Specialty Diagnoses / Procedures Referred By Contac t Referred To Contact Diagnoses S/P gastric bypass Obesity, Class I, BMI 30.0-34.9 (see actual BMI) Amari Quesada PA-C [address] [place] [address] Referral ID Status Reason Start Date Expiration Date Visits Re quested Visits Authorized [id number] Denied 999 999 Reason for Visit * Reason Comments Acute Would like to discus s alternatives to Wegovy. History with gastric bypass about 25 years ago, no longer following with GI nutrition, insurance no longer covering Wegovy and has started gaining weight back. Encounter Details Date Type Department Care Team (Late st Contact Info) Description 07/31/2023 3:20 PM EDT Office Visit [facility] Luis Manuel, [place] [address] [place] [address] Amari Quesada PA-C [address] [place] [address] Pure hypercholesterolemia* ; Vitamin D deficiency; Vitamin B12 deficiency; Status post bilateral knee replacements; S/P gastric bypass; Obesity, Class I, BMI 30.0-34.9 (see actual BMI) Allergies Active Allergy Reactions Criticality Noted Date Comments Ciprofloxacin 04/24/2014 Sulfa Antibiotics Unknown 07/20/2018 Azithromycin Rash 07/20/2018 documented as of this encounter (statuses as of 08/18/2023) Medications Medication Sig Dispensed Refills Start Date End Date Status Nystatin 866715 UNIT/GM External Powder (Nystop)Indication s:Vulvar irritation Apply topically to affected area 3 times a day. Apply to affected area three times a day for 7 days 15 g 0 03/13/2023 Active Cyclobenzaprine HCl 10 MG Oral Tablet (Flexeril)Indicati ons:Acute bilateral low back pain without sciatica Take 1 Tablet by mouth at bedtime as needed for Muscle spasms. 30 Tablet 2 05/16/2023 Active Gabapentin 300 MG Oral Capsule (Neurontin)Indicat ions:Generalized arthritis Take 1 Capsule by mouth in the morning and 1 Capsule at noon and 1 Capsule before bedtime. 90 Capsule 5 06/05/2023 Active Clobetasol Propionate 0.05 % External Cream (Temovate) Apply topically to affected area 2 times a day. To affected area for up to two weeks. 60 g 3 07/03/2023 Active Vitamin B-12 500 MCG Sublingual Tablet Sublingual (Vitamin B-12) Place 1 Tablet under the tongue in the morning. 0 Active Iron 325 (65 Fe) MG Oral Tablet Take by mouth. 0 Active Vitamin D3 25 MCG Oral Tablet (Cholecalciferol) Take 1 Tablet by mouth in the morning. 0 Active Mounjaro 2.5 MG/0.5ML Subcutaneous Solution Pen-injector (Tirzepatide)Indic ations:S/P gastric bypass,Obesity, Class I, BMI 30.0-34.9 (see actual BMI) Inject 2.5 mg under the skin once a week. 2 mL 1 07/31/2023 4 Active Wegovy 2.4 MG/0.75ML Subcutaneous Solution Auto-injector (Semaglutide-Weigh t Management)Indicat ions:S/P gastric bypass,Vitamin B12 deficiency,Vitamin D deficiency,Class 1 obesity due to excess calories with serious comorbidity and body mass index (BMI) of 31.0 to 31.9 in adult INJECT 2.4 MG UNDER THE SKIN ONCE A WEEK. 3 mL 2 06/30/2023 4 Discontinued Hospital, Clinic, or Other Facility Administered Medication Ordered Dose Route Frequency Start Date End Date Status vitamin b-12 (Cyanocobalamin) inj 1,000 mcgIndications:S/P gastric bypass 1000 mcg IM [id number] 03/31/2023 03/01/2024 Active documented as of this encounter (statuses as of 08/18/2023) Active Problems Problem Noted Date Diagnosed Date Fibroids, submucosal 06/10/2022 Overview: Had follow up with INSURANCE SALES PROFESSIONAL. Status post bilateral knee replacements 12/09/19 22 [...] Cigarettes 1 15 0 07/20/1992 - 07/21/2007 Smokeless Tobacco: Never Tobacco Cessation:Counseling Given: Not Answered Alcohol Use Standard Drinks/Week Comments No 0 [...] Sign Reading Time Taken Comments Blood Pressure 116/66 07/31/2023 3:16 PM EDT Pulse 78 07/31/2023 3:16 PM EDT Temperature 36.6 C (97.8 F) 07/31/2023 3:16 PM ED T Respiratory Rate 18 07/31/2023 3:16 PM EDT Oxygen Saturation - - Inhaled Oxygen Concentration - - Weight 91.2 kg (201 lb) 07/31/2023 3:16 PM EDT Height 167.6 cm (5' 6") 07/31/2023 3:16 PM EDT Body Mass Index 32.44 07/31/2023 3:16 PM EDT documented in this encounter Progress Notes * Amari Quesada PA-C - 07/31/2023 3:26 PM EDT Images from the original note were not included. History of Present Illness Jimi Foster is a 62 year old female that presents for acute visit. Reviewed most recent lab work from 05/2023 - CBC stable; CMP stable. - vitamin-D was 18 in 03/2023. Will update. Would like to discuss alternatives to Wegovy. History with gastric bypass about 25 years ago, no longer following with GI nutrition, insurance no longer covering Wegovy as she did not lose enough wait; since stopping Wegovy, she has started gaining weight back. - other GLP-1's are reportedly covered. Will try Mounjaro. Continues to follow with ortho regularly due to generalized arthritis with history of bilateral knee/hip replacements. States sx's have been generally stable. Follows regularly with gynecology, last visit 12/2022. She is due for mammogram but adamantly declines. Aware of risks. Colonoscopy 08/2020 showed patent ileocolonic anastomosis, healthy-appearing mucosa. Hx of emergentcolon surgery > 10 years ago (colon attached to adhesion requiring immediate surgery). Patient Active Problem List Diagnosis Code Chronic fatigue syndrome G93.32 Degenerative disc disease, thoracic M51.34 Pure hypercholesterolemia E78.00 Vitamin D deficiency E55.9 S/P gastric bypass Z98.84 Vitamin B12 deficiency E53.8 History of hepatitis A Z86.19 Status post bilateral knee replacements Z96.653 Obesity, Class I, BMI 30.0-34.9 (see actual BMI) E66.9 Fibroids, submucosal D25.0 Review of patient's allergies indicates: Allergen Reactions Ciprofloxacin Sulfa Antibiotics Unknown Zithromax [Azithromycin] Rash Current Outpatient Medications Medication Sig Dispense Refill Nystatin 707567 UNIT/GM External Powder (Nystop) Apply topically to affected area 3 times a day. Apply to affected area three times a day for 7 days 15 g 0 Cyclobenzaprine HCl 10 MG Oral Tablet (Flexeril) Take 1 Tablet by mouth at bedtime as needed for Muscle spasms. 30 Tablet 2 Gabapentin 300 MG Oral Capsule (Neurontin) Take 1 Capsule by mouth in the morning and 1 Capsule at noon and 1 Capsule before bedtime. 90 Capsule 5 Clobetasol Propionate 0.05 % External Cream (Temovate) Apply topically to affected area 2 times a day. To affected area for up to two weeks. 60 g 3 Vitamin B-12 500 MCG Sublingual Tablet Sublingual (Vitamin B-12) Place 1 Tablet under the tongue inthe morning. Iron 325 (65 Fe) MG Oral Tablet Take by mouth. Vitamin D3 25 MCG Oral Tablet (Cholecalciferol) Take 1 Tablet by mouth in the morning. Mounjaro 2.5 MG/0.5ML Subcutaneous Solution Pen-injector (Tirzepatide) Inject 2.5 mg under the skinonce a week. 2 mL 1 Current Facility-Administered Medications Medication Dose Route Frequency Provider Last Rate Last Admin vitamin b-12 (Cyanocobalamin) inj 1,000 mcg 1,000 mcg Intramuscular Q4 Weeks Amari Quesada PA-C 1,000 mcg at 07/25/23 0832 Past Medical History: Diagnosis Date Lymphedema Past Surgical History: Procedure Laterality Date GASTRIC BAND PLACEMENT/PORT, LAPAROSCOPIC 2002 GASTRIC BAND REMOVAL ONLY, LAPAROSCOPIC 2007? GASTRIC BYPASS FOR OBESITY 2003 KNEE ARTHROSCOPY/SURGERY Right 07/15/2021 KNEE ARTHROSCOPY/SURGERY Left 09/23/2021 MISCELLANEOUS ORDER ([facility] ONLY) multiple cosmetic surgeries s/p gastric bypass MISCELLANEOUS ORDER ([facility] ONLY) bowel surgery REDUCTION OF BREAST 2004 REPAIR WRIST FRACTURE/DISLOCATION TOTAL HIP REPLACEMENT & PROSTHESIS Left 04/25/2022 Dr. Solorzano. TOTAL HIP REPLACEMENT & PROSTHESIS Right 2020 Family History Problem Relation Age of Onset Diabetes Mother Diabetes Father Blood Disorder Father leukemia Blood Disorder Brother 30 leukemia Diabetes Grandmother (Maternal) Cancer Grandmother (Maternal) stomach & uterine Diabetes Grandfather (Maternal) Lung cancer Grandfather (Maternal) No Known Problems Grandmother (Paternal) Diabetes Grandfather (Paternal) Family Status Relation Status Mo Fa Bro MGMA MGFA PGMA PGFA Social History Socioeconomic History Marital status: Tobacco Use Smoking status: Former Current packs/day: 0.00 Average packs/day: 1 pack/day for 15.0 years (15.0 ttl pk-yrs) Types: Cigarettes Start date: 07/20/1992 Quit date: 07/21/2007 Years since quittin.0 Smokeless tobacco: Never Substance and Sexual Activity Alcohol use: No Drug use: No Sexual activity: Yes Partners: Male Social Determinants of Health Food Insecurity: Unknown (04/10/2022) Hunger Vital Sign Worried About Running Out of Food in the Last Year: Patient declined Ran Out of Food in the Last Year: Patient declined Review of Systems Constitutional: Negative. Negative for chills and fever. HENT: Negative. Eyes: Negative. Respiratory: Negative. Negative for shortness of breath. Cardiovascular: Negative. Negative for chest pain, palpitations and leg swelling. Gastrointestinal: Negative for abdominal pain, blood in stool, constipation, diarrhea, nausea and vomiting. Endocrine: Negative. Genitourinary: Negative. Musculoskeletal: Positive for arthralgias, gait problem and myalgias. Skin: Negative. Allergic/Immunologic: Negative. Neurological: Negative for dizziness. Hematological: Negative. Psychiatric/Behavioral: Negative. All other systems reviewed and are negative. Physical Exam BP 116/66 | Pulse 78 | Temp 36.6 C (97.8 F) | Resp 18 | Ht 1.676 m (5' 6") | Wt 91.2 kg (201 lb) | BMI 32.44 kg/m | BSA 2.06 m Physical Exam Vitals and nursing note reviewed. Constitutional: Appearance: Normal appearance. She is obese. HENT: Head: Normocephalic and atraumatic. Right Ear: Tympanic membrane, ear canal and external ear normal. Left Ear: Tympanic membrane, ear canal and external ear normal. Nose: Nose normal. Mouth/Throat: Mouth: Mucous membranes are moist. Pharynx: Oropharynx is clear. Eyes: Extraocular Movements: Extraocular movements intact. Conjunctiva/sclera: Conjunctivae normal. Pupils: Pupils are equal, round, and reactive to light. Cardiovascular: Rate and Rhythm: Normal rate and regular rhythm. Pulses: Normal pulses. Heart sounds: Normal heart sounds. No murmur heard. Pulmonary: Effort: Pulmonary effort is normal. Breath sounds: Normal breath sounds. No wheezing, rhonchi or rales. Abdominal: General: Abdomen is flat. Bowel sounds are normal. Palpations: Abdomen is soft. Tenderness: There is no abdominal tenderness. There is no guarding or rebound. Musculoskeletal: General: Normal range of motion. Cervical back: Normal range of motion and neck supple. Right lower leg: No edema. Left lower leg: No edema. Skin: General: Skin is warm. Findings: No rash. Neurological: General: No focal deficit present. Mental Status: She is alert and oriented to person, place, and time. Psychiatric: Mood and Affect: Mood normal. Behavior: Behavior normal. Thought Content: Thought content normal. Judgment: Judgment normal. I have reviewed most recent labs BMP results Recent Labs Units 04/03/23 0000 03/31/2352 06/03/22 0748 SODIUM - [facility] mmol/L -- 140 140 POTASSIUM - [facility] mmol/L -- 4.8 4.6 POTASSIUM-OUTSIDE LAB MMOL/L 4.1 -- -- CHLORIDE - [facility] mmol/L -- 103 104 CO2 - [facility] mmol/L -- 27 27 CREATININE - [facility] mg/dL -- 0.7 0.7 CREATININE-OUTSIDE LAB MG/DL 0.80 -- -- BUN - [facility] mg/dL -- 16 11 Lipid panel results Recent Labs Units 03/31/2352 06/03/22 0748 CHOLESTEROL - [facility] mg/dL 192 164 LDL CHOLESTEROL (CALCULATED) - [facility] mg/dL 91 90 HDL CHOLESTEROL - [facility] mg/dL 86 64 TRIGLYCERIDES - [facility] mg/dL 76 51 CBC results Recent Labs Units 04/03/23 0000 03/31/23 0952 01/03/23 0000 06/03/22 0748 WBC K/uL -- 5.24 -- 6.08 HGB GM/DL 12.7 12.7 12.2 11.8* HCT % -- 43.1 -- 40.0 PLT K/uL -- 267 -- 295 HbA1c results Recent Labs Units 06/03/22 0748 HEMOGLOBIN A1C - [facility] % 5.2 TSH results Recent Labs Units 03/31/23 0952 06/03/22 0748 TSH - [facility] uIU/mL 1.64 2.82 Vitamin D results Recent Labs Units 03/31/23 0952 06/03/22 0748 25-HYDROXY VITAMIN D - [facility] ng/mL 18* 13* Hepatic panel results Recent Labs Units 03/31/23 0952 06/03/22 0748 PROTEIN - [facility] g/dL 7.1 6.7 BILIRUBIN, TOTAL - [facility] mg/dL 0.4 0.4 ALKALINE PHOSPHATASE - [facility] U/L 74 72 AST - [facility] U/L 19 12 ALT - [facility] U/L 13 7* Protein/cr ratio results No results for input(s): "PROCRRATIO" in the last 63965 hours. Assessment and Plan Pure hypercholesterolemia - VITAMIN B12; Future - 25-HYDROXY VITAMIN D; Future - LIPID PANEL WITH DIRECT LDL IF TG IS HIGH; Future Vitamin D deficiency Updating. - VITAMIN B12; Future - 25-HYDROXY VITAMIN D; Future - LIPID PANEL WITH DIRECT LDL IF TG IS HIGH; Future Vitamin B12 deficiency - VITAMIN B12; Future - 25-HYDROXY VITAMIN D; Future - LIPID PANEL WITH DIRECT LDL IF TG IS HIGH; Future Status post bilateral knee replacements S/P gastric bypass Will start Mounjaro. - VITAMIN B12; Future - 25-HYDROXY VITAMIN D; Future - LIPID PANEL WITH DIRECT LDL IF TG IS HIGH; Future - Mounjaro 2.5 MG/0.5ML Subcutaneous Solution Pen-injector (Tirzepatide); Inject 2.5 mg under the skin once a week. - GI NUTRITION REFERRAL OP Obesity, Class I, BMI 30.0-34.9 (see actual BMI) - Mounjaro 2.5 MG/0.5ML Subcutaneous Solution Pen-injector (Tirzepatide); Inject 2.5 mg under the skin once a week. - GI NUTRITION REFERRAL OP Wrap-Up Follow Up: Return in about 6 months (around 01/31/2024), or if symptoms worsen or fail to improve, for Return with Physician. | For: Return with Physician | Check-out note: Please reschedule next follow-up visit for 6 months from now. Time: I spent a total of 20-29 minutes (exact time 21 mins) on the date of service in preparation, delivery, and documentation of the care provided to Jimi Foster excluding any time spent in the performance of separately billed services. documented in this encounter Nursing Notes * Sunni Ramírez LPN - 07/31/2023 3:17 PM EDT Chief Complaint Patient presents with Acute Would like to discuss alternatives to Wegovy. History with gastric bypass about 25 years ago, no longer following with GI nutrition, insurance no longer covering Wegovy and has started gaining weightback. documented in this encounter Plan of Treatment Upcoming Encounters Date Type Department Care Team (Late st Contact Info) Description 08/18/2023 1:40 PM EDT Office Visit Nutrition & Weight Management, [place] [address] [place] [address] Alicia Moran CRNP [address] [place] [address] Abnormal weight gain* 02/27/2024 10:20 AM EDT [facility] [address] [place] [address] Amari Quesada PA-C [address] [place] [address] Scheduled Orders Name Type Priority Associated Diagnoses Orde r Schedule VITAMIN B12 Lab Routine Pure hypercholesterolemia Vitamin D deficiency Vitamin B12 deficiency S/P gastric bypass Expected: 07/31/2023 (Approximate), Expires: 07/30/2024 25-HYDROXY VITAMIN D Lab Routine Pure hypercholesterolemia Vitamin D deficiency Vitamin B12 deficiency S/P gastric bypass Expected: 07/31/2023 (Approximate), Expires: 07/30/2024 LIPID PANEL WITH DIRECT LDL IF TG IS HIGH Lab Routine Pure hypercholesterolemia Vitamin D deficiency Vitamin B12 deficiency S/P gastric bypass Expected: 07/31/2023, Expires: 07/30/2024 Scheduled Referrals Name Type Priority Associated Diagnoses Orde r Schedule GI NUTRITION REFERRAL OP Referral Within 10 days (routine) S/P gastric bypass Obesity, Class I, BMI 30.0-34.9 (see actual BMI) Ordered: 07/31/2023 Health Maintenance Due Date Last Done Comments [...] as of this encounter Visit Diagnoses Diagnosis Pure hypercholesterolemia- Primary Vitamin D deficiency Unspecified vitamin D deficiency Vitamin B12 deficiency Other B-complex deficiencies Status post bilateral knee replacements Knee joint replacement by other means S/P gastric bypass Bariatric surgery status Obesity, Class I, BMI 30.0-34.9 (see actual BMI) Obesity, unspecified Abnormal weight gain- Primary documented in this encounter Care Teams Touch Up Worker Relationship Specialty Start Date End Date Amari Quesada PA-C [address] [place], [place] [address] [address] PCP - General Physician Automotive Parts Counter Assistant 07/31/23 documented as of this encounter
--- OUTSIDE RECORDS SUMMARY | 2023-09-27 15:43 | External Medical Summary | Summary of Care ---
Author Name Unknown Organization [facility] Address [address] [place] [address] Phone [phone] Care Team Providers Care Purchasing Administrator Name Role Phone Amari Quesada PA-C Primary Care Provide r Reason for Visit * Reason Comments Outpatient Testing Encounter Details Date Type Department Care Team (Late st Contact Info) Description 08/18/2023 2:20 PM EDT Laboratory Outpatient Laboratory, [place] [address] [place] [address] [place], Lab [address] [place], [place] [id number] Pure hypercholesterolemia; Vitamin D deficiency; Vitamin B12 deficiency; S/P gastric bypass; Intestinal postoperative nonabsorption Allergies Active Allergy Reactions Criticality Noted Date Comments Ciprofloxacin 04/24/2014 Sulfa Antibiotics Unknown 07/20/2018 Azithromycin Rash 07/20/2018 documented as of this encounter (statuses as of 08/18/2023) Medications Medication Sig Dispensed Refills Start Date End Date Status Nystatin 459442 UNIT/GM External Powder (Nystop)Indications :Vulvar irritation Apply [...] 1,000 mcgIndications:S/P gastric bypass 1000 mcg IM [id number] 03/31/2023 03/01/2024 Active documented as of this encounter (statuses as of 08/18/2023) Active Problems Problem Noted Date Diagnosed Date Fibroids, submucosal 06/10/2022 Overview: Had follow up with DESK REPORTER. Status post bilateral knee replacements 12/09/19 22 [...] AM EDT Telemedicine Nutrition & Weight Management, [place] [address] [place] [address] Alicia Moran CRNP [address] [place] [address] 02/27/2024 10:20 AM EDT Office Visit [facility] [place] Sania [place]adon [address] [place] [address] Amari Quesada PA-C [address] [place] [address] Health Maintenance Due Date Last Done [...] of this encounter Visit Diagnoses Diagnosis Pure hypercholesterolemia Vitamin D deficiency Unspecified vitamin D deficiency Vitamin B12 deficiency Other B-complex deficiencies S/P gastric bypass Bariatric surgery status Intestinal postoperative nonabsorption Other and unspecified postsurgical nonabsorption documented in this encounter Care Teams Purchasing Administrator Relationship Specialty Start Date End Date Amari Quesada PA-C [address] [facility] [place] [address] PCP - General Physician Fuel Cell Repairer 07/31/23 documented as of this encounter
--- OUTSIDE RECORDS SUMMARY | 2023-09-27 15:43 | External Medical Summary | Summary of Care ---
Author Name Unknown Organization [facility] Address [address] [place] [address] Phone [phone] Care Team Providers Care Insole Department Worker Name Role Phone Amari Quesada PA-C Primary Care Provide r Reason for Visit * Reason Onset Date Comments Precert Approved 08/18/2023 Vandana Encounter Details Date Type Department Care Team ([facility] st Contact Info) Description 08/18/2023 Telephone Nutrition and Weight Management, [place] [address] [place] [address] Alicia Moran CRNP [address] [place] [address] Precert Approved (Vandana) Allergies Active Allergy Reactions Criticality Noted Date Comments Ciprofloxacin 04/24/2014 Sulfa Antibiotics Unknown 07/20/2018 Azithromycin Rash 07/20/2018 documented as of this encounter (statuses as of 08/25/2023) Medications Medication Sig Dispensed Refills Start Date End Date Status Nystatin 568159 UNIT/GM External Powder (Nystop)Indications :Vulvar irritation Apply [...] 1,000 mcgIndications:S/P gastric bypass 1000 mcg IM [id number] 03/31/2023 03/01/2024 Active documented as of this encounter (statuses as of 08/25/2023) Active Problems Problem Noted Date Diagnosed Date Iron deficiency anemia 08/21/2023 Intestinal postoperative nonabsorption 4 Fibroids, submucosal 06/10/2022 Overview: Had follow up with INSURANCE VERIFICATION REPRESENTATIVE. Status post bilateral knee replacements 12/09/19 22 [...] 11:30 AM EDT Hem/Onc Treatment Hematology/[address] [address] [facility], Chair[address] Hem Onc [address] [place], [place] [address] [address] 09/12/2023 11:30 AM EDT Hem/Onc Treatment Hematology/[address] [address] [facility], Chair5 Hem Onc [address] [place], [place] [address] [address] 09/19/2023 11:30 AM EDT Hem/Onc Treatment Hematology/Oncology Treatment, [address] [address] [facility], Chair4 Hem Onc [address] [place] [address] [place] [address] 10/25/2023 9:40 AM EDT Telemedicine Nutrition & Weight Management, [place] [address] [place] [address] Dean Alicia GutierrezSAUL [address] [place] [address] 02/27/2024 10:20 AM EDT Office Visit [facility] [place] Sania [place] [address] [place] [address] Amari Quesada PA-C [address] [place] [address] Health Maintenance Due Date Last Done Comments [...] filedocumented as of this encounter Care Teams Insole Department Worker Relationship Specialty Start Date End Date Amari Quesada PA-C [address] [facility] [place] [address] PCP - General Physician Physician Practice Consultant 07/31/23 documented as of this encounter
--- OUTSIDE RECORDS SUMMARY | 2023-09-27 15:43 | External Medical Summary | Summary of Care ---
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 Role Phone Amari Quesada PA-C Primary Care Provide r Reason for Visit * Reason Comments Weight Management * Evaluate & Treat - Unlimited Visits (Within 10 days (routine)) - Authorized Specialty Diagnoses / Procedures Referred By Contact Referred To Contact GI NUTRITION/IM / Gastroenterology Diagnoses S/P gastric bypass Obesity, Class I, BMI 30.0-34.9 (see actual BMI) Amari Quesada PA-C [address] [place] [address] Referral ID Status Reason Start Date Expiration Date Visits Requested Visits Authorized [id number] Authorized Specialty Services Required 07/31/2023 07/20/[phone] Encounter Details Date Type Department Care Team (Latest Contact Info) Description 08/18/2023 1:40 PM EDT Office Visit [facility], [facility] [address] [place] [address] Alicia Moran CRNP [address] [place] [address] Abnormal weight gain*; S/P gastric bypass; Intestinal postoperative nonabsorption Allergies Active Allergy Reactions Criticality Noted Date Comments Ciprofloxacin 04/24/2014 Sulfa Antibiotics Unknown 07/20/2018 Azithromycin Rash 07/20/2018 documented as of this encounter (statuses as of 08/18/2023) Medications Medication Sig Dispensed Refills Start Date End Date Status Nystatin 554434 UNIT/GM External Powder (Nystop)Indication s:Vulvar irritation Apply [...] on 08/18/2023 Gabapentin 300 MG Oral Capsule (Neurontin)Indicat ions:Generalized [...] Active Wegovy 1.7 MG/0.75ML Subcutaneous Solution Auto-injector (Semaglutide-Weigh t Management)Indicat ions:Abnormal weight gain,S/P gastric bypass Inject 1.7 mg under the skin once a week for 28 days. 3 mL 1 08/18/2023 Active Naltrexone HCl 50 MG Oral Tablet (Revia)Indications :Abnormal weight gain,S/P gastric bypass Take 1/2 tab by mouth once a day for 1 week then take 1/2 tab twice a day (morning & late afternoon) 30 Tablet 2 08/18/2023 Active buPROPion HCl ER (SR) 150 MG Oral Tablet Extended Release 12 Hour (Wellbutrin SR)Indications:Abn ormal weight gain,S/P gastric bypass Take 1 tab by mouth once a day for 1 week then take 1 tab twice a day (morning & late afternoon) 60 Tablet 2 08/18/2023 Active Mounjaro 2.5 MG/0.5ML Subcutaneous Solution Pen-injector (Tirzepatide)Indic ations:S/P gastric bypass,Obesity, Class I, BMI 30.0-34.9 (see actual BMI) Inject 2.5 mg under the skin once a week. 2 mL 1 07/31/2023 Discontinue d(Medicatio n List Clean Up) Hospital, Clinic, or Other Facility Administered Medication Ordered Dose Route Frequency Start Date End Date Status vitamin b-12 (Cyanocobalamin) inj 1,000 mcgIndications:S/P gastric bypass 1000 mcg IM [id number] 03/31/2023 03/01/2024 Active documented as of this encounter (statuses as of 08/18/2023) Active Problems Problem Noted Date Diagnosed Date Fibroids, submucosal 06/10/2022 Overview: Had follow up with [employer]. Status post bilateral knee replacements 12/09/19 22 [...] Passive Smoke Exposure: Never Smokeless Tobacco: Never Tobacco Cessation:Counseling Given: Not [...] Sign Reading Time Taken Comments Blood Pressure 108/70 08/18/2023 1:16 PM EDT Pulse 67 08/18/2023 1:16 PM EDT Temperature - - Respiratory Rate - - Oxygen Saturation 98% 08/18/2023 1:16 PM EDT Inhaled Oxygen Concentration - - Weight 93.1 kg (205 lb 3.2 oz) 08/18/2023 1:16 P M EDT Height 165.8 cm (5' 5.28") 08/18/2023 1:16 PM ED T Body Mass Index 33.86 08/18/2023 1:16 PM EDT documented in this encounter Patient Instructions * Patient Instructions* Alicia Moran CRNP - 08/18/2023 1:55 PM EDT Images from the original note were not included. Generic components of Contrave-see medication education below Week 1 take 150 mg of Wellbutrin (Bupropion) every morning Week 2 increase to 1 tablet 150 mg of Wellbutrin (Bupropion) twice a day Week 3 add Naltrexone 25 mg in the am (1/2 tab of 50 mg) Week 4 increase Naltrexone to 25 mg in am and in the pm - common side effects included but are not limited to constipation, dry mouth, anxiety/change in mood, GI upset, nausea/vomiting; rarely can cause elevated Blood pressure & Heart rate for which it would have to be stopped; allergic reactions (stop immediately) - Goal is to lose ~5% wt loss in 3 mos, will stop med if no weight loss or if weight gain Advised of potential increase in depression symptoms with medications prescribed today. Advised to f/u with PCP for worsening of depression symptoms and instructed to report to ED and/or call crisis # [phone] or 911 with SI/HI Naltrexone instructions Avoid drinking alcohol while taking this drug. Do not take opioid drugs while you are taking this drug. Opioid drugs will not work. Do not take more opioid drugs to try to get them to work. Doing this may cause severe injury, coma, or . If you are addicted to opioid drugs and are given this drug, you may have signs of withdrawal. If you have questions, talk with your doctor. Possible side effects include feeling nervous/excitable, anxiety, headache, muscle cramps, constipation, diarrhea, nausea, vomiting, stomach pain, decreased appetite, increased thirst, trouble sleeping, dizziness, muscle/joint pain, signs of the common cold, and tooth pain. You can take this medication with or without food. However, administration with food or after mealsmay lessen any undesired gastrointestinal effects. If you miss a dose, take the missed dose as soon as you think about it. If it is close to the time for your next dose, skip the missed dose and go back to your normal time. Do not take 2 doses at thesame time. Naltrexone Oral Tablet Brands: ReVia Uses This medicine is used for the following purposes: drug addiction alcohol dependence Instructions Swallow with a full glass (8 oz) of water unless your doctor gives you different instructions. You may take with food to prevent stomach upset. This medicine will work best if you take it at about the same time every day. Store at room temperature away from heat, light, and moisture. Do not keep in the bathroom. It is important that you keep taking each dose of this medicine on time even if you are feeling well. If you forget to take a dose on time, take it as soon as you remember. If it is almost time for thenext dose, do not take the missed dose. Return to your normal schedule. Do not take 2 doses at one time. Drug interactions can change how medicines work or increase risk for side effects. Tell your healthcare providers about all medicines taken. Include prescription and btdl-vts-kxtriny medicines, vitamins, and herbal medicines. Speak with your doctor or pharmacist before starting or stopping any medicine. If you need to stop this medicine, your doctor may wish to gradually reduce the dosage before stopping. Keep all appointments for medical exams and tests while on this medicine. Cautions Tell your doctor and pharmacist if you ever had an allergic reaction to a medicine. This medicine may cause you to experience some withdrawal symptoms from your pain medication. Tell your doctor right away if you have unusual sweating, chills, stomach pain, diarrhea, yawning or irritability. Some patients taking this medicine have experienced serious side effects. Please speak with your doctor to understand the risks and benefits associated with this medicine. This medicine is associated with a rare, but serious problem of the liver. Speak to your doctor about the early signs of liver problems and the benefits and risks of using this medicine. Do not use the medication any more than instructed. This medicine may cause dizziness or fainting, especially after exercising or in hot weather. Be very careful when standing or sitting up quickly. If possible, avoid using with alcohol, marijuana, or other medicines that can cause dizziness or drowsiness. These include allergy/cold products, muscle relaxers, sleep aids, and pain relievers. Your ability to stay alert or to react quickly may be impaired by this medicine. Do not drive or operate machinery until you know how this medicine will affect you. Call the doctor if there are any signs of confusion or unusual changes in behavior. Tell the doctor or pharmacist if you are , planning to be , or . Contact your doctor immediately if you experience any swelling of your hands, face, lips, eyes, throat or tongue. Always carry an ID card or wear a medical alert bracelet indicating your medical condition. Do not share this medicine with anyone who has not been prescribed this medicine. Always refill this medicine before it runs out. Side Effects The following is a list of some common side effects from this medicine. Please speak with your doctor about what you should do if you experience these or other side effects. agitated feeling or trouble sleeping dizziness lack of energy and tiredness headaches nausea restlessness Call your doctor or get medical help right away if you notice any of these more serious side effects: abdominal cramps severe or persistent abdominal pain decreased awareness or responsiveness bone pain confusion diarrhea hallucinations (unusual thoughts, seeing or hearing things that are not real) pain in the joints signs of liver damage (such as yellowing of eye or skin, dark urine, or unusual tiredness) muscle aches, spasms or abnormal movements nervousness runny nose shortness of breath severe or persistent vomiting A few people may have an allergic reaction to this medicine. Symptoms can include difficulty breathing, skin rash, itching, swelling, or severe dizziness. If you notice any of these symptoms, seek medical help quickly. Extra Please speak with your doctor, nurse, or pharmacist if you have any questions about this medicine. [email or web address] IMPORTANT NOTE: This document tells you briefly how to take your medicine, but it does not tell youall there is to know about it. Your doctor or pharmacist may give you other documents about your medicine. Please talk to them if you have any questions. Always follow their advice. There is a more complete description of this medicine available in [place]. Scan this code on your smartphone or tablet or use the web address below. You can also ask your pharmacist for a printout. If you have any questions, please ask your pharmacist. The display and use of this drug information is subject to Terms of Use. Copyright(c) 2022 [employer]. All rights reserved. This information is not intended as a substitute for professional medical care. Always follow your healthcare professional's instructions. Bupropion Oral Tablet Brands: Wellbutrin Uses This medicine is used for the following purposes: attention deficit hyperactivity disorder depression eating disorders stop smoking Instructions This medicine may be taken with or without food. Try to avoid taking the medicine at bedtime. Store at room temperature away from heat, light, and moisture. Do not keep in the bathroom. It may take several weeks for this medicine to fully work. It is important that you keep taking each dose of this medicine on time even if you are feeling well. If you forget to take a dose on time, take it as soon as you remember. If it is almost time for thenext dose, do not take the missed dose. Return to your normal schedule. Do not take 2 doses at one time. Drug interactions can change how medicines work or increase risk for side effects. Tell your healthcare providers about all medicines taken. Include prescription and aimc-ems-emzqclz medicines, vitamins, and herbal medicines. Speak with your doctor or pharmacist before starting or stopping any medicine. Tell your doctor if symptoms do not get better or if they get worse. Keep all appointments for medical exams and tests while on this medicine. Cautions Tell your doctor and pharmacist if you ever had an allergic reaction to a medicine. This medicine is associated with an increased risk for seizures. Please ask your doctor whether youmay be at risk for having a seizure while on this medicine. Do not use the medication any more than instructed. Your ability to stay alert or to react quickly may be impaired by this medicine. Do not drive or operate machinery until you know how this medicine will affect you. Please check with your doctor before drinking alcohol while on this medicine. Family should check on the patient often. Call the doctor if patient becomes more depressed, has thoughts of suicide, or shows changes in behavior. This medicine passes into breast milk. Ask your doctor before . During , this medicine should be used only when clearly needed. Talk to your doctor about the risks and benefits. Do not share this medicine with anyone who has not been prescribed this medicine. Some patients have serious side effects from this medicine. Ask your pharmacist to show you the information from the Food and Drug Administration (FDA) and discuss it with you. Side Effects The following is a list of some common side effects from this medicine. Please speak with your doctor about what you should do if you experience these or other side effects. agitated feeling or trouble sleeping change in appetite constipation dizziness or drowsiness dry mouth headaches high blood pressure muscle pain nausea and vomiting problems with sexual functions or desire sore throat stomach upset or abdominal pain sweating weight loss If you have any of the following side effects, you may be getting too much medicine. Please contactyour doctor to let them know about these side effects. confusion diarrhea fainting hallucinations (unusual thoughts, seeing or hearing things that are not real) pain in the joints tight or rigid muscles muscle trembling Call your doctor or get medical help right away if you notice any of these more serious side effects: chest pain pain in the eye fast or irregular heart beats dilation of the pupils seizures shortness of breath suicidal thoughts blurring or changes of vision seeing halos or colors around lights A few people may have an allergic reaction to this medicine. Symptoms can include difficulty breathing, skin rash, itching, swelling, or severe dizziness. If you notice any of these symptoms, seek medical help quickly. Extra Please speak with your doctor, nurse, or pharmacist if you have any questions about this medicine. [email or web address]/[email or web address] IMPORTANT NOTE: This document tells you briefly how to take your medicine, but it does not tell youall there is to know about it. Your doctor or pharmacist may give you other documents about your medicine. Please talk to them if you have any questions. Always follow their advice. There is a more complete description of this medicine available in [place]. Scan this code on your smartphone or tablet or use the web address below. You can also ask your pharmacist for a printout. If you have any questions, please ask your pharmacist. The display and use of this drug information is subject to Terms of Use. Copyright(c) 2022 [employer]. [employer]. All rights reserved. This information is not intended as a substitute for professional medical care. Always follow your healthcare professional's instructions. documented in this encounter Progress Notes * Alicia Moran CRNP - 08/18/2023 12:45 PM EDT Images from the original note were not included. [facility] CONSULTATION Referring Physician: Amari Quesada PA-C PCP: Amari Quesada PA-C Source of information: Patient Available records reviewed: Recent provider visits, Imaging, and Labs Reason for Referral: Weight Management. 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 At today's initial consultation, patient would like to receive counseling regarding healthy diet and lifestyle intervention she canmake to help with abnormal weight gain. She is also open to the prospect of medical management for the treatment of obesity. H/O Previous Bariatric Surgery: RYGB; OPEN INCISION; early 1999' by Dr. Boston at [facility]. Starting weight 642 lbsConversion to banded gastric bypass one year after band Removal of LAGB 14 years ago -Cecal volvulus in 2016 treated by exploratory laparotomy with lysis of adhesion and right rasta-colectomy. 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 She would like to get down to is 180 lbs. In the past, patient has tried conservative measures to lose weight. Previously on Wegovy 2.4mg about 2 months ago- no longer covered r/t not meeting weight restrictions. She has now regained more and feels she will qualify. PCP tried Mounjaro unable to get r/t same restrictions. She states she missed it by 1 lb. 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 Previous interventions: Self-directed, Commercial, Medical Ozempic, Wegovy, and Registered dietitian . The patient confirms any past pharmacotherapy for weight loss Ozempic and Wegovy Weight history: Highest Body Weight: Is 642 pounds in . Wt Readings from Last 30 Encounters: 08/18/23 93.1 kg (205 lb 3.2 oz) 07/31/23 91.2 kg (201 lb) 07/06/23 84.9 kg (187 lb 3.2 oz) 05/16/23 88.6 kg (195 lb 6.4 oz) 03/31/23 89.1 kg (196 lb 6.4 oz) 06/10/22 87.8 kg (193 lb 9.6 oz) 04/13/22 89.6 kg (197 lb 9.6 oz) 12/08/21 97.7 kg (215 lb 6.4 oz) 06/28/21 90.2 kg (198 lb 12.8 oz) 04/02/21 95.7 kg (211 lb) 01/29/21 96 kg (211 lb 9.6 oz) 07/13/20 111.4 kg (245 lb 9.6 oz) 09/03/19 101.5 kg (223 lb 11.2 oz) 08/09/19 101.1 kg (222 lb 12.8 oz) 07/20/18 12.2 kg (26 lb 12.8 oz) Current Diet: Describes typical diet history/24 hr recall-Vegetarian Breakfast: eggs, veggies Snack: crackers Lunch: tuna salad, Dinner: veggies, quinoa, fish Snacks: cake Drinks: water, unsweet ice tea Restaurant meals: rare Activity: Goes to gym daily 90 mins, 30 bike, strength training, 4 times a week 45 walking video S/p bilateral THR and TKR Social History: Alcohol: few times Tobacco Use: No Drug Use: Yes - medical marijuana 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 Lives with spouse Sleep quality: 3-5 Social History Socioeconomic History Marital status: Spouse name: Not on file Number of children: Not on file Years of education: Not on file Highest education level: Not on file Occupational History Not on file Tobacco Use Smoking status: Former Current packs/day: 0.00 Average packs/day: 1 pack/day for 15.0 years (15.0 ttl pk-yrs) Types: Cigarettes Start date: 07/20/1992 Quit date: 07/21/2007 Years since quittin.0 Smokeless tobacco: Never Substance and Sexual Activity Alcohol use: No Drug use: No Sexual activity: Yes Partners: Male Other Topics Concern Not on file Social History Narrative Not on file Social Determinants of Health Financial Resource Strain: Not on file Food Insecurity: Unknown (04/10/2022) Hunger Vital Sign Worried About Running Out of Food in the Last Year: Patient declined Ran Out of Food in the Last Year: Patient declined Transportation Needs: Not on file Physical Activity: Not on file Stress: Not on file Social Connections: Not on file Intimate Partner Violence: Not on file Housing Stability: Not on file Past Medical History: Diagnosis Date Lymphedema Past Surgical History: Procedure Laterality Date GASTRIC BAND PLACEMENT/PORT, LAPAROSCOPIC 2002 GASTRIC BAND REMOVAL ONLY, LAPAROSCOPIC 2007? GASTRIC BYPASS FOR OBESITY 2003 KNEE ARTHROSCOPY/SURGERY Right 07/15/2021 KNEE ARTHROSCOPY/SURGERY Left 09/23/2021 MISCELLANEOUS ORDER ([facility] ONLY) multiple cosmetic surgeries s/p gastric bypass MISCELLANEOUS ORDER ([facility] ONLY) bowel surgery REDUCTION OF BREAST 2004 REPAIR WRIST FRACTURE/DISLOCATION TOTAL HIP REPLACEMENT & PROSTHESIS Left 04/25/2022 Dr. Solorzano. TOTAL HIP REPLACEMENT & PROSTHESIS Right 2020 Current Outpatient Medications Medication Sig Dispense Refill Nystatin 286576 UNIT/GM External Powder (Nystop) Apply topically to [...] Quesada PA-C 1,000 mcg at 07/25/23 0832 Review of patient's allergies indicates: Allergen Reactions Ciprofloxacin Sulfa Antibiotics Unknown Zithromax [Azithromycin] Rash Review of Systems: Constitutional: (+) weight change Eyes: Glaucoma No Retinopathy:no Cardiovascular Symptoms: No chest pain, No shortness of breath, No dyspnea on exertion, No orthopnea, No edema, Nopalpitations, and No syncope Hypertension: No BP Readings from Last 5 Encounters: 07/31/23 116/66 05/16/23 118/74 03/31/23 116/64 01/13/23 120/68 06/10/22 114/70 CAD/CHF/arrhythmias/valve disease: No Pulmonary Asthma: No COPD: No Nursing Notes: RiccoYomaira pierre, DARREL 08/18/23 1322 Signed Waist circumference 43 inches Neck circumference 13 inches Sleep Apnea: No, tested years ago Sleep Apnea STOP-BANG: Does patient snore loudly (louder than talking or loud enough to be heard)?No Does patient feel tired, fatigued or sleepy during daytime? no Have others observed patient stopping breathing during sleep? No Does patient have/is being treated for high blood pressure? no BMI greater than 35 kg/m2? no; There is no height or weight on file to calculate BMI. Patient 50 years or older? yes; 48 year old Neck circumference greater than 16 inches? No Sex assigned at : female Score: less than 3 no referral indicated Endocrine Patient denies personal or family history of medullary thyroid carcinoma. Patient denies personal or family history of multiple endocrine neoplasia syndrome. Insulin Resistance: No Diabetes: No Lab Results Component Value Date/Time HEMOGLOBIN A1C - [facility] 5.2 06/03/2022 07:48 AM Lab Results Component Value Date/Time GLUCOSE - [facility] 70 03/31/2023 09:52 AM GLUCOSE - [facility] 73 06/03/2022 07:48 AM GLUCOSE - [facility] 77 06/28/2021 08:24 AM GLUCOSE - [facility] 82 07/23/2018 09:17 AM GLUCOSE, URINE - [facility] Negative 06/21/2022 11:09 AM GLUCOSE, URINE - [facility] Negative 06/03/2022 07:48 AM GLUCOSE, URINE - [facility] NEGATIVE 07/23/2018 09:17 AM GLUCOSE-OUTSIDE LAB 77 04/03/2023 12:00 AM GLUCOSE-OUTSIDE LAB 75 (A) 01/18/2021 12:00 AM GLUCOSE-OUTSIDE LAB 79 07/14/2020 12:00 AM Dyslipidemia: No Results for orders placed or performed in visit on 03/31/23 LIPID PANEL WITH DIRECT LDL IF TG IS HIGH Result Value Ref Range Triglycerides 76 <=174 mg/dL Cholesterol 192 <200 mg/dL HDL Cholesterol 86 >49 mg/dL Non-HDL Cholesterol 106 <=159 mg/dL LDL Cholesterol 91 <=129 mg/dL GI Symptoms: No abdominal pain, No significant heartburn, No significant change in appetite, No nausea, vomiting, diarrhea, or constipation, No hematemesis, No blood in stools or black tarry stools, No abdominal bloating or early satiety, and No dysphagia + constipation-1 senna GERD: No Fatty Liver: no Pancreatitis: no GB disease: s/p oz Gastroparesis: no Renal History of nephrolithiasis: Yes, multiple. CKD: yes Musculoskeletal Osteoarthritis: Yes foot, hands, back: s/p bilateral THR and TKR Functional Status: NO Impairment Reproductive Polycystic ovarian syndrome: N/A Menstrual Cycle: No Control: N/A and No Neuro Stroke: No Seizures: No Pseudotumor: No Headaches chronically: No Psychosocial Adjustment Issues: Yes, having issues with body image and stress management Depression: No history Other Confirmed Mental Health Diagnosis: anxiety/panic disorder Supplements MVI Iron qd V12 Vit D 25mg B12 q 3 months at PCP OBJECTIVE: BP 108/70 | Pulse 67 | Ht 1.658 m (5' 5.28") | Wt 93.1 kg (205 lb 3.2 oz) | SpO2 98% | BMI 33.86 kg/m | BSA 2.07 m General: Well-developed, non-dysmorphic, obese, comfortable, NAD HEENT: Normocephalic/atraumatic. Sclera non-icteric, MMM, Neck: No thyromegaly or tracheal deviation. Lungs: breathing comfortably; no conversational dyspnea Cardiovascular: extremities well-perfused Extremities: full range of motion. Skin: no evidence of bleeding or bruising, no edema, and no acanthosis nigricans noted on neck or excessive skin tags. Psych: normal mood and affect Neuro: no gross motor deficits, speech normal pitch and speed, AAOx3 ASSESSMENT AND PLAN: Jimi Foster is a 62 year old patient who presents for further weight management guidance. Abnormal weight gain / Body mass index is 33.86 kg/m. / Class I obesity. Explained to the patient that they can lose on average ~5-10% of current weight with medical management, ~10-15% with medication use, and ~40-60% with bariatric surgery. Discussed weight management options and the patient would like to proceed with conservative and medication weight management. has decided to pursue bariatric surgery : previous RYGB Discussed lifestyle changes as well as the following medication options (risks, benefits, side effects, and relation to current medical conditions): GLP-1RA (liraglutide, semaglutide) or GLP1/GIP (tirzepatide) Phentermine Qsymia (Phentermine/Topiramate) Contrave (Buproprion/Naltrexone) Metformin Orlistat Rileykatie Maicol Foster has decided to move forward with the following medication in addition to lifestyle modifications (in order of preference): GLP-1RA (liraglutide, semaglutide) or GLP1/GIP (tirzepatide) Previously on Wegovy w/coverage did not meet weight criteria-has regained will resubmit start at 1.7mg Patient denies personal or family history of medullary thyroid cancer or MEN2, pancreatitis, gastroparesis, retinopathy 2. Generic components of Contrave-start today. Denies seizures, aware to avoid ETOH Barriers are consistency, lymphedema, chronic pain, financial concerns. Motivators are feeling better, avoiding/reducing comorbid conditions Patient goals were discussed in detail at visit. Binge eating/disordered eating Start Contrave Awaiting re approval for GLP1 Continue with physical activity regimen Very insightful on appropriate/healthy food options S/p RYGB Intestinal postoperative nonabsorption No f/u w/NWM in yrs; will check BOLD labs Lymphedema of LE Extensive workup-w/o resolve Chronic pain On gabapentin and medical marijuana Anxiety Stable Time spent with patient 45 minutes. More than 50% of my time spent with patient providing counseling about the benefits of weight loss, about the patient's nutritional status, detailed explanations about calorie count, types of nutrients to choose, and composition of the meals. Reviewed and discussed weight, weight trends and pertinent labs and test results. Motivational interview provided in order to prepare the patient to achieve future goals. The patient agreed to try all the plan discussed and return in two months. Patient was instructed to message or call in the meantime with any furtherconcerns or questions. The patient agreed to try the plan as discussed and return in one month. They were encouraged to call or send a patient portal message in the meantime with any questions or concerns prior to their next clinic visit. Dr. Marin available in clinic for consultation as needed. [facility] [address] [facility] [place] [address] P [phone] | F [phone] Patient Instructions Generic components of Contrave-see medication education below Week 1 take 150 mg of Wellbutrin (Bupropion) every morning Week 2 increase to 1 tablet 150 mg of Wellbutrin (Bupropion) twice a day Week 3 add Naltrexone 25 mg in the am (1/2 tab of 50 mg) Week 4 increase Naltrexone to 25 mg in am and in the pm - common side effects included but are not limited to constipation, dry mouth, anxiety/change in mood, GI upset, nausea/vomiting; rarely can cause elevated Blood pressure & Heart rate for which it would have to be stopped; allergic reactions (stop immediately) - Goal is to lose ~5% wt loss in 3 mos, will stop med if no weight loss or if weight gain Advised of potential increase in depression symptoms with medications prescribed today. Advised to f/u with PCP for worsening of depression symptoms and instructed to report to ED and/or call crisis # [phone] or 911 with SI/HI Naltrexone instructions Avoid drinking alcohol while taking this drug. Do not take opioid drugs while you are taking this drug. Opioid drugs will not work. Do not take more opioid drugs to try to get them to work. Doing this may cause severe injury, coma, or . If you are addicted to opioid drugs and are given this drug, you may have signs of withdrawal. If you have questions, talk with your doctor. Possible side effects include feeling nervous/excitable, anxiety, headache, muscle cramps, constipation, diarrhea, nausea, vomiting, stomach pain, decreased appetite, increased thirst, trouble sleeping, dizziness, muscle/joint pain, signs of the common cold, and tooth pain. You can take this medication with or without food. However, administration with food or after mealsmay lessen any undesired gastrointestinal effects. If you miss a dose, take the missed dose as soon as you think about it. If it is close to the time for your next dose, skip the missed dose and go back to your normal time. Do not take 2 doses at thesame time. Naltrexone Oral Tablet Brands: [employer] Uses This medicine is used for the following purposes: drug addiction alcohol dependence Instructions Swallow with a full glass (8 oz) of water unless your doctor gives you different instructions. You may take with food to prevent stomach upset. This medicine will work best if you take it at about the same time every day. Store at room temperature away from heat, light, and moisture. Do not keep in the bathroom. It is important that you keep taking each dose of this medicine on time even if you are feeling well. If you forget to take a dose on time, take it as soon as you remember. If it is almost time for thenext dose, do not take the missed dose. Return to your normal schedule. Do not take 2 doses at one time. Drug interactions can change how medicines work or increase risk for side effects. Tell your healthcare providers about all medicines taken. Include prescription and asbc-mjn-nloyigs medicines, vitamins, and herbal medicines. Speak with your doctor or pharmacist before starting or stopping any medicine. If you need to stop this medicine, your doctor may wish to gradually reduce the dosage before stopping. Keep all appointments for medical exams and tests while on this medicine. Cautions Tell your doctor and pharmacist if you ever had an allergic reaction to a medicine. This medicine may cause you to experience some withdrawal symptoms from your pain medication. Tell your doctor right away if you have unusual sweating, chills, stomach pain, diarrhea, yawning or irritability. Some patients taking this medicine have experienced serious side effects. Please speak with your doctor to understand the risks and benefits associated with this medicine. This medicine is associated with a rare, but serious problem of the liver. Speak to your doctor about the early signs of liver problems and the benefits and risks of using this medicine. Do not use the medication any more than instructed. This medicine may cause dizziness or fainting, especially after exercising or in hot weather. Be very careful when standing or sitting up quickly. If possible, avoid using with alcohol, marijuana, or other medicines that can cause dizziness or drowsiness. These include allergy/cold products, muscle relaxers, sleep aids, and pain relievers. Your ability to stay alert or to react quickly may be impaired by this medicine. Do not drive or operate machinery until you know how this medicine will affect you. Call the doctor if there are any signs of confusion or unusual changes in behavior. Tell the doctor or pharmacist if you are , planning to be , or . Contact your doctor immediately if you experience any swelling of your hands, face, lips, eyes, throat or tongue. Always carry an ID card or wear a medical alert bracelet indicating your medical condition. Do not share this medicine with anyone who has not been prescribed this medicine. Always refill this medicine before it runs out. Side Effects The following is a list of some common side effects from this medicine. Please speak with your doctor about what you should do if you experience these or other side effects. agitated feeling or trouble sleeping dizziness lack of energy and tiredness headaches nausea restlessness Call your doctor or get medical help right away if you notice any of these more serious side effects: abdominal cramps severe or persistent abdominal pain decreased awareness or responsiveness bone pain confusion diarrhea hallucinations (unusual thoughts, seeing or hearing things that are not real) pain in the joints signs of liver damage (such as yellowing of eye or skin, dark urine, or unusual tiredness) muscle aches, spasms or abnormal movements nervousness runny nose shortness of breath severe or persistent vomiting A few people may have an allergic reaction to this medicine. Symptoms can include difficulty breathing, skin rash, itching, swelling, or severe dizziness. If you notice any of these symptoms, seek medical help quickly. Extra Please speak with your doctor, nurse, or pharmacist if you have any questions about this medicine. [email or web address]/[email or web address]/fdbpem/190 IMPORTANT NOTE: This document tells you briefly how to take your medicine, but it does not tell youall there is to know about it. Your doctor or pharmacist may give you other documents about your medicine. Please talk to them if you have any questions. Always follow their advice. There is a more complete description of this medicine available in Mauritan[place]. Scan this code on your smartphone or tablet or use the web address below. You can also ask your pharmacist for a printout. If you have any questions, please ask your pharmacist. The display and use of this drug information is subject to Terms of Use. Copyright(c) 2022 [employer]. [employer]. All rights reserved. This information is not intended as a substitute for professional medical care. Always follow your healthcare professional's instructions. Bupropion Oral Tablet Brands: Wellbutrin Uses This medicine is used for the following purposes: attention deficit hyperactivity disorder depression eating disorders stop smoking Instructions This medicine may be taken with or without food. Try to avoid taking the medicine at bedtime. Store at room temperature away from heat, light, and moisture. Do not keep in the bathroom. It may take several weeks for this medicine to fully work. It is important that you keep taking each dose of this medicine on time even if you are feeling well. If you forget to take a dose on time, take it as soon as you remember. If it is almost time for thenext dose, do not take the missed dose. Return to your normal schedule. Do not take 2 doses at one time. Drug interactions can change how medicines work or increase risk for side effects. Tell your healthcare providers about all medicines taken. Include prescription and qdtp-hit-gfazbtj medicines, vitamins, and herbal medicines. Speak with your doctor or pharmacist before starting or stopping any medicine. Tell your doctor if symptoms do not get better or if they get worse. Keep all appointments for medical exams and tests while on this medicine. Cautions Tell your doctor and pharmacist if you ever had an allergic reaction to a medicine. This medicine is associated with an increased risk for seizures. Please ask your doctor whether youmay be at risk for having a seizure while on this medicine. Do not use the medication any more than instructed. Your ability to stay alert or to react quickly may be impaired by this medicine. Do not drive or operate machinery until you know how this medicine will affect you. Please check with your doctor before drinking alcohol while on this medicine. Family should check on the patient often. Call the doctor if patient becomes more depressed, has thoughts of suicide, or shows changes in behavior. This medicine passes into breast milk. Ask your doctor before . During , this medicine should be used only when clearly needed. Talk to your doctor about the risks and benefits. Do not share this medicine with anyone who has not been prescribed this medicine. Some patients have serious side effects from this medicine. Ask your pharmacist to show you the information from the Food and Drug Administration (FDA) and discuss it with you. Side Effects The following is a list of some common side effects from this medicine. Please speak with your doctor about what you should do if you experience these or other side effects. agitated feeling or trouble sleeping change in appetite constipation dizziness or drowsiness dry mouth headaches high blood pressure muscle pain nausea and vomiting problems with sexual functions or desire sore throat stomach upset or abdominal pain sweating weight loss If you have any of the following side effects, you may be getting too much medicine. Please contactyour doctor to let them know about these side effects. confusion diarrhea fainting hallucinations (unusual thoughts, seeing or hearing things that are not real) pain in the joints tight or rigid muscles muscle trembling Call your doctor or get medical help right away if you notice any of these more serious side effects: chest pain pain in the eye fast or irregular heart beats dilation of the pupils seizures shortness of breath suicidal thoughts blurring or changes of vision seeing halos or colors around lights A few people may have an allergic reaction to this medicine. Symptoms can include difficulty breathing, skin rash, itching, swelling, or severe dizziness. If you notice any of these symptoms, seek medical help quickly. Extra Please speak with your doctor, nurse, or pharmacist if you have any questions about this medicine. [email or web address]/fdbpem/155 IMPORTANT NOTE: This document tells you briefly how to take your medicine, but it does not tell youall there is to know about it. Your doctor or pharmacist may give you other documents about your medicine. Please talk to them if you have any questions. Always follow their advice. There is a more complete description of this medicine available in [place]. Scan this code on your smartphone or tablet or use the web address below. You can also ask your pharmacist for a printout. If you have any questions, please ask your pharmacist. The display and use of this drug information is subject to Terms of Use. Copyright(c) 2022 [employer]. 7831-1937 [employer]. All rights reserved. This information is not intended as a substitute for professional medical care. Always follow your healthcare professional's instructions. documented in this encounter Nursing Notes * Yomaira Rodriguez, DARREL - 08/18/2023 1:16 PM EDT Waist circumference 43 inches Neck circumference 13 inches documented in this encounter Plan of Treatment Upcoming Encounters Date Type Department Care Team (Late st Contact Info) Description 10/25/2023 9:40 AM EDT Telemedicine Nutrition & Weight Management, [place] [address] [place] [address] Alicia Moran CRNP [address] [place] [address] 02/27/2024 10:20 AM EDT Office Visit [facility] [address], [place] [address] [place] [id number] Amari Quesada PA-C [address] [facility] [place] [id number] Scheduled Orders Name Type Priority Associated Diagnoses Orde r Schedule CBC Lab Routine S/P gastric bypass Intestinal postoperative nonabsorption Expected: 08/18/2023, Expires: 08/17/2024 IRON SCREEN, INCLUDING TIBC Lab Routine S/P gastric bypass Intestinal postoperative nonabsorption Expected: 08/18/2023, Expires: 08/17/2024 FERRITIN Lab Routine S/P gastric bypass Intestinal postoperative nonabsorption Expected: 08/18/2023, Expires: 08/17/2024 VITAMIN A (RETINOL) Lab Routine S/P gastric bypass Intestinal postoperative nonabsorption Expected: 08/18/2023, Expires: 08/17/2024 VITAMIN B1 (THIAMINE), BLOOD, LC/MS/MS Lab Routine S/P gastric bypass Intestinal postoperative nonabsorption Expected: 08/18/2023, Expires: 08/17/2024 HEMOGLOBIN A1C Lab Routine S/P gastric bypass Intestinal postoperative nonabsorption Expected: 08/18/2023, Expires: 08/17/2024 PTH Lab Routine S/P gastric bypass Intestinal postoperative nonabsorption Expected: 08/18/2023, Expires: 08/17/2024 FOLIC ACID Lab Routine S/P gastric bypass Intestinal postoperative nonabsorption Expected: 08/18/2023, Expires: 08/17/2024 INSULIN Lab Routine S/P gastric bypass Intestinal postoperative nonabsorption Expected: 08/18/2023, Expires: 08/17/2024 COMPREHENSIVE METABOLIC PANEL Lab Routine S/P gastric bypass Intestinal postoperative nonabsorption Expected: 08/18/2023, Expires: 08/17/2024 ZINC Lab Routine S/P gastric bypass Intestinal postoperative nonabsorption Expected: 08/18/2023, Expires: 08/17/2024 METHYLMALONIC ACID, SERUM Lab Routine S/P gastric bypass Intestinal postoperative nonabsorption Expected: 08/18/2023, Expires: 08/17/2024 COPPER, SERUM OR PLASMA Lab Routine S/P gastric bypass Intestinal postoperative nonabsorption Expected: 08/18/2023, Expires: 08/17/2024 Health Maintenance Due Date Last Done Comments [...] as of this encounter Visit Diagnoses Diagnosis Abnormal weight gain- Primary S/P gastric bypass Bariatric surgery status Intestinal postoperative nonabsorption Other and unspecified postsurgical nonabsorption documented in this encounter Care Teams Book 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
--- OUTSIDE RECORDS SUMMARY | 2023-09-27 15:44 | External Medical Summary ---
Author Name Unknown Address Unknown Organization : Laboratory Report Ordering Provider Test Date Status YUKI SCHMITZ 08/18/2023 14:23:45 Final Observation Date Value Abnormality Reference (Units ) Status Copper 08/18/2023 14:23:45 112 70-175 (mc g/dL) Final This test was developed and its analytical performance
characteristics have been determined by [facility] [place], [place]. It has
not been cleared or approved by the U.S. Food and Drug
Administration. This assay has been validated pursuant
to the CLIA regulations and is used for clinical
purposes.

Test Performed at:
[facility]
[address] [address]
James Rankin M.D., Ph.D.,Director of Laboratories Performing Location
--- OUTSIDE RECORDS SUMMARY | 2023-09-27 15:44 | External Medical Summary | Summary of Care ---
Author Name Unknown Organization [facility] Address [address] [place] [address] Phone [phone] Care Team Providers Care Program Engineer Name Role Phone Unavailable Primary Care Provider Unavailabl e Reason for Visit * Reason Onset Date Comments Advice 07/21/2023 Return Encounter Details Date Type Department Care Team ([facility] Contact Info) Description 07/21/2023 Telephone Family Practice [facility] [address] [place] [address] Amari Quesada PA-C [address] [place] [address] Advice (Return) Allergies Active Allergy Reactions Criticality Noted Date Comments Ciprofloxacin 04/24/2014 Sulfa Antibiotics Unknown 07/20/2018 Azithromycin Rash 07/20/2018 documented as of this encounter (statuses as of 07/26/2023) Medications Medication Sig Dispensed Refills Start Date End Date Status Nystatin 289833 UNIT/GM External Powder (Nystop)Indications: Vulvar irritation Apply topically to affected area 3 times a day. Apply to affected area three times a day for 7 days 15 g 0 03/13/2023 Active Cyclobenzaprine HCl 10 MG Oral Tablet (Flexeril)Indication s:Acute bilateral low back pain without sciatica Take 1 Tablet by mouth at bedtime as needed for Muscle spasms. 30 Tablet 2 05/16/2023 Active Gabapentin 300 MG Oral Capsule (Neurontin)Indicatio ns:Generalized arthritis Take 1 Capsule by mouth in the morning and 1 Capsule at noon and 1 Capsule before bedtime. 90 Capsule 5 06/05/2023 Active Wegovy 2.4 MG/0.75ML Subcutaneous Solution Auto-injector (Semaglutide-Weight Management)Indicatio ns:S/P gastric bypass,Vitamin B12 deficiency,Vitamin D deficiency,Class 1 obesity due to excess calories with serious comorbidity and body mass index (BMI) of 31.0 to 31.9 in adult INJECT 2.4 MG UNDER THE SKIN ONCE A WEEK. 3 mL 2 06/30/2023 Active Clobetasol Propionate 0.05 % External Cream (Temovate) Apply topically to affected area 2 times a day. To affected area for up to two weeks. 60 g 3 07/03/2023 Active Hospital, Clinic, or Other Facility Administered Medication Ordered Dose Route Frequency Start Date End Date Status vitamin b-12 (Cyanocobalamin) inj 1,000 mcgIndications:S/P gastric bypass 1000 mcg IM [id number] 03/31/2023 03/01/2024 Active documented as of this encounter (statuses as of 07/26/2023) Active Problems Problem Noted Date Diagnosed Date Fibroids, submucosal 06/10/2022 Overview: Had follow up with [employer] [employer]. 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 Chronic fatigue syndrome 02/08/2016 Pure hypercholesterolemia 02/08/2016 Vitamin D deficiency 02/08/2016 documented as of this encounter (statuses as of 07/26/2023) Resolved Problems Problem Noted Date Diagnosed Date Resolved Date Other specified arthritis, left knee 09/21/2021 12/08/2021 Bilateral chronic knee pain 07/05/2021 12/08/2021 Primary osteoarthritis of right hip 02/04/2021 04/13/2022 Nasal lesion 07/20/2018 06/10/2022 Anxiety 08/05/2014 12/08/2021 documented as of this encounter (statuses as of 07/26/2023) Immunizations Name Administration Dates Next Due COVID-19 mRNA, LNP-s, No Pre serve, 2-Dose Series (Pfizer) 08/24/2020,08/03/2020 TDAP (age 10 and older)(Boostrix) 07/21/2015 TDAP (age 11 and older)(Adacel) 07/21/2015 documented as of this encounter Social History Tobacco Use Types Packs/Day Years Used Date Smoking Tobacco: Former Cigarettes 1 15 0 07/20/1992 - 07/21/2007 Smokeless Tobacco: Never Alcohol Use Standard Drinks/Week [...] encounter Miscellaneous Notes * Telephone Encounter - Susana Ruth LPN - 07/25/2023 3:03 PM EST Spoke with [facility] [employer] regarding medication. Two appeals have been submitted and both were denied.Patient needs to have lost at least 5% and she has only lost 3% with giving them her most recent weight of 187.3lbs. Made them aware that she was 25 years post gastric bypass and uses medication for maintenance. Partner Cco states that she would have still needed to lose at least 5% of weight with the initial start of medication til now and she has only lost 3%. Please advise on next steps to assist patient. * Telephone Encounter - Agnieszka Falk OSA - 07/25/2023 9:55 AM EST See other enc * Telephone Encounter - Susana Ruth LPN - 07/24/2023 2:23 PM EST Please assist with scheduling. * Telephone Encounter - Susana Ruth LPN - 07/24/2023 1:29 PM EST MyG sent to patient * Telephone Encounter - Amari Quesada PA-C - 07/23/2023 11:41 PM EST Will need to try a different GLP-1, wegovy is denied and everything has been submitted. Has she tried any others (I.e. ozempic, mounjaro, zebound, etc)? * Telephone Encounter - Lisandra Vera LPN - 07/21/2023 9:[address] Colindres calling for peer to peer on the Wegovy. Asking for prior weights. Given March weight of 196 lbs 6.4 oz. April is 195 lb 6.4 oz . She has not lost at least 5 % of her body weight. So, this will be denied. If she has not lost 5 % of her body weight, she should try another medicine. * Telephone Encounter - Barbie Lara OSA - 07/21/2023 9:53 AM EST Reason for patient's call: Dr. Colindres from [facility]. Caller was transferred to Della Acuña at the nurse line. documented in this encounter Plan of Treatment Upcoming Encounters Date Type Department Care Team (Late st Contact Info) Description 08/28/2023 1:00 PM EDT Office Visit [facility] [address] [place] [address] [place] [address] Amari Quesada PA-C [address] [place] [address] 10/10/2023 10:40 AM EDT Office Visit [facility] [address], [place] [address] [place] [address] Amari Quesada PA-C [address] [place] [address] Health Maintenance Due Date Last Done Comments [...]
--- OUTSIDE RECORDS SUMMARY | 2023-09-27 15:44 | External Medical Summary ---
Author Name Unknown Address Unknown Organization [id number]:LABORATORY [facility] [place] - [address] [place] [address] Laboratory Report Ordering Provider Test Date Status YUKI SCHMITZ 08/18/2023 14:23:45 Final Observation Date Value Abnormality Reference (Units ) Status Iron 08/18/2023 14:23:45 21 Below low normal 33-151 (ug/dL) Final Iron-binding capacity 08/18/2023 14:23:45 447 Above high normal 250-425 (ug/dL) Final Transferrin Sat % 08/18/2023 14:23:45 5 Below low normal 15-55 (%) Final Performing Location LABORATORY [facility] [place] - [address] [address]
--- OUTSIDE RECORDS SUMMARY | 2023-09-27 15:44 | External Medical Summary ---
Author Name Unknown Address Unknown Organization : Laboratory Report Ordering Provider Test Date Status YUKI SCHMITZ 08/18/2023 14:23:45 Final Observation Date Value Abnormality Reference (Units ) Status Vitamin A, level 08/18/2023 14:23:45 44 38- 98 (mcg/dL) Final Vitamin supplementation with in 24 hours prior to
blood draw may affect the accuracy of the results.
This test was developed and its analytical performance
characteristics have been determined by [employer]
[facility] [place] It has
not been cleared or approved by the U.S. Food and Drug
Administration. This assay has been validated pursuant
to the CLIA regulations and is used for clinical
purposes.

Test Performed at:
[employer] [place]
[address] [facility]
[place] [address]
James Rankin M.D., Ph.D.,Director of Laboratories Performing Location
--- OUTSIDE RECORDS SUMMARY | 2023-09-27 15:44 | External Medical Summary ---
Author Name Unknown Address Unknown Organization K01:[place] [facility] [place] [address] [facility] [address] Laboratory Report Ordering Provider Test Date Status IRENA SENA 08/18/2023 14:23:45 Final Observation Date Value Abnormality Reference (Units ) Status Triglyceride 08/18/2023 14:23:45 99 <=174 ( mg/dL) Final Triglyceride Reference Range s (mg/dL):
<150 Acceptable
150-174 Borderline high
175-499 High
>=500 Very high Cholesterol 08/18/2023 14:23:45 193 <200 (mg /dL) Final Total Cholesterol Reference Ranges (mg/dL):
<200 Desirable
200-239 Borderline high
>=240 High HDL 08/18/2023 14:23:45 91 >49 (mg/dL ) Final HDL Cholesterol Reference Ra nges (mg/dL):
>=60 High (Desirable)
<50 Low (Undesirable) For Females
<40 Low (Undesirable) For Males NON-HDL CHOLESTEROL 08/18/2023 14:23:45 102 <=159 (mg/dL) Final Non-HDL Cholesterol Referenc e Range (mg/dL):
<100 Target level for high risk ASCVD patient
<130 Optimal for general population
130-159 Near optimal for general population
160-189 Borderline High
190-219 High
>=220 Very High LDL, (calculated) 08/18/2023 14:23:45 82 <= 129 (mg/dL) Final LDL Cholesterol Reference Ra nges (mg/dL):
<70 Target level for high risk ASCVD patient
<100 Optimal for general population
100-129 Near optimal for general population
130-159 Borderline high
160-189 High
>=190 Very high Performing Location [place] [facility] [place] [address] [place] [address]
--- OUTSIDE RECORDS SUMMARY | 2023-09-27 15:44 | External Medical Summary | Summary of Care ---
Author Name Unknown Organization [facility] Address [address] [place] [address] Phone [phone] Care Team Providers Care Mortgage Loan Specialist Name Role Phone Amari Quesada PA-C Primary Care Provide r Encounter Details Date Type Department Care Team ([facility] Contact Info) Description 08/07/2023 Orders Only PATIENT PORTAL DO NOT DELETE THIS DEPT USED BY HALINA SHERIDAN [id number] Allergies Active Allergy Reactions Criticality Noted Date Comments Ciprofloxacin 04/24/2014 Sulfa Antibiotics Unknown 07/20/2018 Azithromycin Rash 07/20/2018 documented as of this encounter (statuses as of 08/07/2023) Medications Medication Sig Dispensed Refills Start Date End Date Status Nystatin 197658 UNIT/GM External Powder (Nystop)Indications :Vulvar irritation Apply [...] Active Mounjaro 2.5 MG/0.5ML Subcutaneous Solution Pen-injector (Tirzepatide)Indica tions:S/P gastric bypass,Obesity, Class I, BMI 30.0-34.9 (see actual BMI) Inject 2.5 mg under the skin once a week. 2 mL 1 07/31/2023 09/25/2023 Active Hospital, Clinic, or Other Facility Administered Medication Ordered Dose Route Frequency Start Date End Date Status vitamin b-12 (Cyanocobalamin) inj 1,000 mcgIndications:S/P gastric bypass 1000 mcg IM [id number] 03/31/2023 03/01/2024 Active documented as of this encounter (statuses as of 08/07/2023) Active Problems Problem Noted Date Diagnosed Date Fibroids, submucosal 06/10/2022 Overview: Had follow up with [employer]. 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 Chronic fatigue syndrome 02/08/2016 Pure hypercholesterolemia 02/08/2016 Vitamin D deficiency 02/08/2016 documented as of this encounter (statuses as of 08/07/2023) Resolved Problems Problem Noted Date Diagnosed Date Resolved Date Other specified arthritis, left knee 09/21/2021 12/08/2021 Bilateral chronic knee pain 07/05/2021 12/08/2021 Primary osteoarthritis of right hip 02/04/2021 04/13/2022 Nasal lesion 07/20/2018 06/10/2022 Anxiety 08/05/2014 12/08/2021 documented as of this encounter (statuses as of 08/07/2023) Immunizations Name Administration Dates Next Due COVID-19 [...] Care Team (Late st Contact Info) Description 02/27/2024 10:20 AM EDT Office Visit Family Practice [address] [place] [address] Amari Quesada PA-C [address] [place] [address] Health Maintenance Due Date Last Done Comments [...] filedocumented as of this encounter Care Teams Mortgage Loan Specialist Relationship Specialty Start Date End Date Amari Quesada PA-C [address] [facility] [place] [address] PCP - General Physician Magnetometer Operator 07/31/23 documented as of this encounter
--- OUTSIDE RECORDS SUMMARY | 2023-09-27 15:44 | External Medical Summary ---
Author Name Unknown Address Unknown Organization K01:LABORATORY [facility] [place] - [address] [place] [address] Laboratory Report Ordering Provider Test Date Status IRENA SENA 08/18/2023 14:23:45 Final Observation Date Value Abnormality Reference (Units ) Status Vitamin B12 08/18/2023 14:23:45 [phone] (pg/mL) Final Performing Location LABORATORY [facility] - [address] [place] [address]
--- OUTSIDE RECORDS SUMMARY | 2023-09-27 15:44 | External Medical Summary ---
Author Name Unknown Address Unknown Organization : Laboratory Report Ordering Provider Test Date Status YUKI SCHMITZ 08/18/2023 14:23:45 Final Observation Date Value Abnormality Reference (Units ) Status Thiamine [Moles/volume] in Blood 08/18/2023 14:23:45 112 78-185 (nmol/L) Final Vitamin supplementation with in 24 hours prior to
blood draw may affect the accuracy of the results.
This test was developed and its analytical performance
characteristics have been determined by [employer] [place], [place]. It has
not been cleared or approved by the U.S. Food and Drug
Administration. This assay has been validated pursuant
to the CLIA regulations and is used for clinical
purposes.

Test Performed at:
[facility] [place]
[address] [facility]
[place] [address]
James Rankin M.D., Ph.D.,Director of Laboratories Performing Location
--- OUTSIDE RECORDS SUMMARY | 2023-09-27 15:44 | External Medical Summary ---
Author Name Unknown Address Unknown Organization K01:[place] [facility] [place] [address] [place] [address] Laboratory Report Ordering Provider Test Date Status YUKI SCHMITZ 08/18/2023 14:23:45 Final Observation Date Value Abnormality Reference (Units ) Status Parathyrin.intact [Mass/volume] in Serum or Plasma 08/18/2023 14:23:45 52 15-65 (pg/mL) Final Performing Location [place] [facility] [place] [address] [place] [address]
--- OUTSIDE RECORDS SUMMARY | 2023-09-27 15:44 | External Medical Summary ---
Author Name Unknown Address Unknown Organization K01:LABORATORY [facility] [place] - [facility] [place] [address] Laboratory Report Ordering Provider Test Date Status YUKI SCHMITZ 08/18/2023 14:23:45 Final Observation Date Value Abnormality Reference (Units ) Status WBC, Total 08/18/2023 14:23:45 5.79 4.00-10.80 (K/uL) Final RBC 08/18/2023 14:23:45 4.63 3.85-5.15 (M/uL) Final Hemoglobin 08/18/2023 14:23:45 12.3 12.0-15.3 (g/dL) Final HCT 08/18/2023 14:23:45 39.5 36.0-45.2 (%) Final MCV 08/18/2023 14:23:45 85.3 81.5-97.5 (fL) Final MCH 08/18/2023 14:23:45 26.6 27.0-34.0 (pg) Final MCHC 08/18/2023 14:23:45 31.1 32.0-36.0 (g/dL) Final RDW 08/18/2023 14:23:45 15.9 11.5-15.5 (%) Final Platelets 08/18/2023 14:23:45 258 140-400 (K/uL) Final MPV 08/18/2023 14:23:45 10.5 6.6-11.1 (fL) Final Nucleated erythrocytes/100 leukocytes [Ratio] in Blood by Automated count 08/18/2023 14:23:45 0 <=0 (/100 WBCs) Final Performing Location LABORATORY [facility] [place] - [address] [place] [address]
--- OUTSIDE RECORDS SUMMARY | 2023-09-27 15:44 | External Medical Summary ---
Author Name Unknown Address Unknown Organization K01:[facility]ORY [facility] [place] - [address] [facility] [address] Laboratory Report Ordering Provider Test Date Status YUKI SCHMITZ 08/18/2023 14:23:45 Final Observation Date Value Abnormality Reference (Units ) Status HbA1C 08/18/2023 14:23:45 5.3 4.0-5.6 (% ) Final The use of HbA1c to monitor glycemic status is based on normal hemoglobin and HbA composition. This test should not be used in patients with abnormal hemoglobin that affects the half life of the red blood cell or the in vivo glycation rates. Glucose, estimated average 08/18/2023 14:23:45 105 <126 (mg/dL) Final Performing Location LABORATORY [facility] - [address] [facility] [address]
--- OUTSIDE RECORDS SUMMARY | 2023-09-27 15:44 | External Medical Summary ---
Author Name Unknown Address Unknown Organization : Laboratory Report Ordering Provider Test Date Status YUKI SCHMITZ 08/18/2023 14:23:45 Final Observation Date Value Abnormality Reference (Units ) Status Zinc, level 08/18/2023 14:23:45 69 60-130 ( mcg/dL) Final This test was developed and its analytical performance
characteristics have been determined by [employer]
[place], [place]. It has
not been cleared or approved by the U.S. Food and Drug
Administration. This assay has been validated pursuant
to the CLIA regulations and is used for clinical
purposes.

Test Performed at:
[facility]
[address] [facility]
[place] [address]
James Rankin M.D., Ph.D.,Director of Laboratories Performing Location
--- OUTSIDE RECORDS SUMMARY | 2023-09-27 15:44 | External Medical Summary ---
Author Name Unknown Address Unknown Organization K01:LABORATORY [facility] [place] [address] [place] [address] Laboratory Report Ordering Provider Test Date Status YUKI SCHMITZ 08/18/2023 14:23:45 Final Observation Date Value Abnormality Reference (Units ) Status Folic Acid 08/18/2023 14:23:45 15.0 >4.5 (ng/ mL) Final Performing Location LABORATORY [facility] - [address] [place] [address]
--- OUTSIDE RECORDS SUMMARY | 2023-09-27 15:44 | External Medical Summary ---
Author Name Unknown Address Unknown Organization : Laboratory Report Ordering Provider Test Date Status YUKI SCHMITZ 08/18/2023 14:23:45 Final Observation Date Value Abnormality Reference (Units ) Status METHYLMALONIC ACID 08/18/2023 14:23:45 122 8 7-318 (nmol/L) Final This test was developed and its analytical performance
characteristics have been determined by [employer] [place], [place]. It has
not been cleared or approved by the U.S. Food and Drug
Administration. This assay has been validated pursuant
to the CLIA regulations and is used for clinical
purposes.

Test Performed at:
[facility]
[address] [facility] [place] [address]
James Rankin M.D., Ph.D.,Director of Laboratories Performing Location
--- OUTSIDE RECORDS SUMMARY | 2023-09-27 15:44 | External Medical Summary ---
Author Name Unknown Address Unknown Organization K01:[place] [facility] [place] [address] [place] [address] Laboratory Report Ordering Provider Test Date Status YUKI SCHMITZ 08/18/2023 14:23:45 Final Observation Date Value Abnormality Reference (Units ) Status Ferritin 08/18/2023 14:23:45 11 Below low normal 13- 150 (ng/mL) Final Postmenopausal women have hi gher ferritin levels than pre-menopausal women. The above reference interval is based on pre-menopausal women. Performing Location [place] [facility] [place] [address] [place] [address]
--- OUTSIDE RECORDS SUMMARY | 2023-09-27 15:44 | External Medical Summary ---
Author Name Unknown Address Unknown Organization K01:[facility] [place] - [address] [facility] [address] Laboratory Report Ordering Provider Test Date Status YUKI SCHMITZ 08/18/2023 14:23:45 Final Observation Date Value Abnormality Reference (Units ) Status BUN 08/18/2023 14:23:45 14 6-20 (mg/dL) Final Creatinine 08/18/2023 14:23:45 0.7 0.5-1.0 (mg/dL) Final Glomerular filtration rate/1.73 sq M.predicted [Volume Rate/Area] in Serum, Plasma or Blood by Creatinine-based formula (CKD-EPI) 08/18/2023 14:23:45 >90 >=60 (mL/min) Final eGFR is calculated based on the CKD-EPI 2020 equation Sodium 08/18/2023 14:23:45 140 135-146 (m mol/L) Final Potassium 08/18/2023 14:23:45 4.2 3.5-5.1 (m mol/L) Final Cl 08/18/2023 14:23:45 108 Above high normal 98 -107 (mmol/L) Final CO2 08/18/2023 14:23:45 24 22-32 (mmo l/L) Final Anion gap 08/18/2023 14:23:45 8 7-15 (mmol /L) Final Glucose 08/18/2023 14:23:45 96 70-120 (mg /dL) Final Albumin 08/18/2023 14:23:45 4.0 3.8-5.0 (g /dL) Final AST (Aspartate aminotransferase) 08/18/2023 14:23:45 19 10-35 (U/L) Fin al Alk Phos 08/18/2023 14:23:45 79 35-130 (U/ L) Final Bilirubin, Total 08/18/2023 14:23:45 0.4 <=1 .2 (mg/dL) Final Calcium 08/18/2023 14:23:45 9.0 8.4-10.2 ( mg/dL) Final Protein 08/18/2023 14:23:45 7.2 6.0-8.3 (g /dL) Final ALT (Alanine aminotransferase) 08/18/2023 14:23:45 15 10-35 (U/L) Keven seay Performing Location [facility]ORY [facility] [place] [facility] [address] [facility] [address]
--- OUTSIDE RECORDS SUMMARY | 2023-09-27 15:45 | External Medical Summary | Summary of Care ---
Author Name Unknown Organization [facility] Address [address] [place] [address] Phone [phone] Care Team Providers Care Catering Staff Member Name Role Phone Unavailable Primary Care Provider Unavailabl e Reason for Visit * Reason Onset Date Comments Advice 07/21/2023 Return Encounter Details Date Type Department Care Team ([facility] Contact Info) Description 07/21/2023 Telephone Family Practice [facility] [address] [place] [address] Amari Quesada PA-C [address] [place] [address] Advice (Return) Allergies Active Allergy Reactions Criticality Noted Date Comments Ciprofloxacin 04/24/2014 Sulfa Antibiotics Unknown 07/20/2018 Azithromycin Rash 07/20/2018 documented as of this encounter (statuses as of 07/24/2023) Medications Medication Sig Dispensed Refills Start Date End Date Status Nystatin 956913 UNIT/GM External Powder (Nystop)Indications: Vulvar irritation Apply [...] 1,000 mcgIndications:S/P gastric bypass 1000 mcg IM [id number] 03/31/2023 03/01/2024 Active documented as of this encounter (statuses as of 07/24/2023) Active Problems Problem Noted Date Diagnosed Date Fibroids, submucosal 06/10/2022 Overview: Had follow up with RESPIRATORY CARE TECHNICIAN. 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 Chronic fatigue syndrome 02/08/2016 Pure hypercholesterolemia 02/08/2016 Vitamin D deficiency 02/08/2016 documented as of this encounter (statuses as of 07/24/2023) Resolved Problems Problem Noted Date Diagnosed Date Resolved Date Other specified arthritis, left knee 09/21/2021 12/08/2021 Bilateral chronic knee pain 07/05/2021 12/08/2021 Primary osteoarthritis of right hip 02/04/2021 04/13/2022 Nasal lesion 07/20/2018 06/10/2022 Anxiety 08/05/2014 12/08/2021 documented as of this encounter (statuses as of 07/24/2023) Immunizations Name Administration Dates Next Due COVID-19 [...] Reason for patient's call: Dr. Colindres from [facility]. Caller was transferred to Della Acuña at the nurse line. documented in this encounter Plan of Treatment Upcoming Encounters Date Type Department Care Team (Late st Contact Info) Description 10/10/2023 10:40 AM EDT Office Visit Family Practice [address] [place] [address] Amari Quesada PA-C [address] [place] [address] Health Maintenance Due Date Last Done Comments HIV Screening 1973 HPV/Co-Test 1988 Mammogram 1998 Cologuard 12/28/2003 Fecal Occult Blood Test 12/28/2003 Sigmoidoscopy 12/28/2003 Zoster Vaccines (1 of 2) 2008 Depression Screening 08/08/2020 08/09/2019 COVID-19 Vaccine (3 - 2022-24 season) 2023 08/24/2020, 08/03/2020 Influenza Vaccine (FLU [...]
--- OUTSIDE RECORDS SUMMARY | 2023-09-27 15:45 | External Medical Summary | Summary of Care ---
Author Name Unknown Organization [facility] Address [address] [place] [address] Phone [phone] Care Team Providers Care Hematology Supervisor Name Role Phone Unavailable Primary Care Provider Unavailabl e Reason for Visit * Reason Onset Date Comments Advice 07/21/2023 Encounter Details Date Type Department Care Team ([facility] Contact Info) Description 07/21/2023 Telephone Family Practice [facility] [address] [place], [place] [id number] Amari Quesada PA-C [address] [place] [address] Advice Allergies Active Allergy Reactions Criticality Noted Date Comments Ciprofloxacin 04/24/2014 Sulfa Antibiotics Unknown 07/20/2018 Azithromycin Rash 07/20/2018 documented as of this encounter (statuses as of 07/23/2023) Medications Medication Sig Dispensed Refills Start Date End Date Status Nystatin 220592 UNIT/GM External Powder (Nystop)Indications: Vulvar irritation Apply [...] 1,000 mcgIndications:S/P gastric bypass 1000 mcg IM [id number] 03/31/2023 03/01/2024 Active documented as of this encounter (statuses as of 07/23/2023) Active Problems Problem Noted Date Diagnosed Date Fibroids, submucosal 06/10/2022 Overview: Had follow up with PUBLIC HEALTH STAFF NURSE. 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 Chronic fatigue syndrome 02/08/2016 Pure hypercholesterolemia 02/08/2016 Vitamin D deficiency 02/08/2016 documented as of this encounter (statuses as of 07/23/2023) Resolved Problems Problem Noted Date Diagnosed Date Resolved Date Other specified arthritis, left knee 09/21/2021 12/08/2021 Bilateral chronic knee pain 07/05/2021 12/08/2021 Primary osteoarthritis of right hip 02/04/2021 04/13/2022 Nasal lesion 07/20/2018 06/10/2022 Anxiety 08/05/2014 12/08/2021 documented as of this encounter (statuses as of 07/23/2023) Immunizations Name Administration Dates Next Due COVID-19 [...] encounter Miscellaneous Notes * Telephone Encounter - Amari Quesada PA-C [...] Reason for patient's call: Dr. Colindres from [facility] Peer Review Services. Caller was transferred to Della Acuña at the nurse line. documented in this encounter Plan of Treatment Upcoming Encounters Date Type Department Care Team (Late st Contact Info) Description 10/10/2023 10:40 AM EDT Office Visit Family Practice [address] [place] [address] Amari Quesada PA-C [address] [place] [address] [address] Health Maintenance Due Date Last Done Comments [...]
--- OUTSIDE RECORDS SUMMARY | 2023-09-27 15:45 | External Medical Summary | Summary of Care ---
Author Name Unknown Organization [facility] Address [address] [place] [address] Phone [phone] Care Team Providers Care Drill Foreman Name Role Phone Unavailable Primary Care Provider Unavailabl e Reason for Visit * Reason Onset Date Comments Advice 07/21/2023 Return Encounter Details Date Type Department Care Team ([facility] Contact Info) Description 07/21/2023 Telephone Family Practice [facility] [address] [place] [address] Amari Quesada PA-C [address] [place] [address] Advice (Return) Allergies Active Allergy Reactions Criticality Noted Date Comments Ciprofloxacin 04/24/2014 Sulfa Antibiotics Unknown 07/20/2018 Azithromycin Rash 07/20/2018 documented as of this encounter (statuses as of 07/25/2023) Medications Medication Sig Dispensed Refills Start Date End Date Status Nystatin 720159 UNIT/GM External Powder (Nystop)Indications: Vulvar irritation Apply [...] 1,000 mcgIndications:S/P gastric bypass 1000 mcg IM [id number] 03/31/2023 03/01/2024 Active documented as of this encounter (statuses as of 07/25/2023) Active Problems Problem Noted Date Diagnosed Date Fibroids, submucosal 06/10/2022 Overview: Had follow up with DUTY OFFICER. 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 Chronic fatigue syndrome 02/08/2016 Pure hypercholesterolemia 02/08/2016 Vitamin D deficiency 02/08/2016 documented as of this encounter (statuses as of 07/25/2023) Resolved Problems Problem Noted Date Diagnosed Date Resolved Date Other specified arthritis, left knee 09/21/2021 12/08/2021 Bilateral chronic knee pain 07/05/2021 12/08/2021 Primary osteoarthritis of right hip 02/04/2021 04/13/2022 Nasal lesion 07/20/2018 06/10/2022 Anxiety 08/05/2014 12/08/2021 documented as of this encounter (statuses as of 07/25/2023) Immunizations Name Administration Dates Next Due COVID-19 [...] - 07/25/2023 3:03 PM EST Spoke with [facility] regarding medication. Two appeals have been submitted and both were denied.Patient needs to have lost at least 5% and she has only lost 3% with giving them her most recent weight of 187.3lbs. Made them aware that she was 25 years post gastric bypass and uses medication for maintenance. Aquatic Performer states that she would have still needed [...] Reason for patient's call: Dr. Colindres from [facility] Peer Review Services. Caller was transferred to Della Acuña at the nurse line. documented in this encounter Plan of Treatment Upcoming Encounters Date Type Department Care Team (Late st Contact Info) Description 08/28/2023 1:00 PM EDT Office Visit [facility] [address], [place] [address] [place] [address] Amari Quesada PA-C [address] [place] [address] 10/10/2023 10:40 AM EDT Office Visit [facility] [address], [place] [address] [place] [address] Amari Quesada PA-C [address] [place] [address] Health Maintenance Due Date Last Done Comments [...]
--- OUTSIDE RECORDS SUMMARY | 2023-09-27 15:45 | External Medical Summary | Summary of Care ---
Author Name Unknown Organization [facility] Address [address] [place] [address] Phone [phone] Care Team Providers Care Geriatric Physical Therapist Name Role Phone Unavailable Primary Care Provider Unavailabl e Reason for Visit * Reason Onset Date Comments Advice 07/21/2023 MyG 3/4 Encounter Details Date Type Department Care Team ([facility] st Contact Info) Description 07/21/2023 Telephone Family Practice [facility] [address] [place] [address] Amari Quesada PA-C [address] [place] [address] Advice (MyG 3/) Allergies Active Allergy Reactions Criticality Noted Date Comments Ciprofloxacin 04/24/2014 Sulfa Antibiotics Unknown 07/20/2018 Azithromycin Rash 07/20/2018 documented as of this encounter (statuses as of 07/24/2023) Medications Medication Sig Dispensed Refills Start Date End Date Status Nystatin [id number] UNIT/GM External Powder (Nystop)Indications: Vulvar irritation Apply [...] 1,000 mcgIndications:S/P gastric bypass 1000 mcg IM [id number] 03/31/2023 03/01/2024 Active documented as of this encounter (statuses as of 07/24/2023) Active Problems Problem Noted Date Diagnosed Date Fibroids, submucosal 06/10/2022 Overview: Had follow up with SHOP HELPER. Status post bilateral knee replacements 12/09/19 22 [...] Reason for patient's call: Dr. Colindres from [facility] Peer Review Services. Caller was transferred to Della Acuña at the nurse line. documented in this encounter Plan of Treatment Upcoming Encounters Date Type Department Care Team (Late st Contact Info) Description 10/10/2023 10:40 AM EDT Office Visit Family Practice [address] [place] [address] Amari Quesada PA-C [address] [place] [address] Health Maintenance Due Date Last Done Comments HIV Screening 1973 HPV/Co-Test 1988 Mammogram 1998 Cologuard 12/28/2003 Fecal Occult Blood Test 12/28/2003 Sigmoidoscopy 12/28/2003 Zoster Vaccines (1 of 2) 2008 Depression Screening 08/08/2020 08/09/2019 COVID-19 Vaccine (3 - 24 season) 2023 08/24/2020, 08/03/2020 Influenza Vaccine (FLU [...]
--- OUTSIDE RECORDS SUMMARY | 2023-09-27 15:45 | External Medical Summary | Summary of Care ---
Author Name Unknown Organization [facility] Address [address] [place] [address] Phone [phone] Care Team Providers Care Museum Service Scheduler Name Role Phone Unavailable Primary Care Provider Unavailabl e Reason for Visit * Reason Onset Date Comments Advice 07/21/2023 Return Encounter Details Date Type Department Care Team ([facility] Contact Info) Description 07/21/2023 Telephone Family Practice [facility] [address] [place] [address] Amari Quesada PA-C [address] [place] [address] Advice (Return) Allergies Active Allergy Reactions Criticality Noted Date Comments Ciprofloxacin 04/24/2014 Sulfa Antibiotics Unknown 07/20/2018 Azithromycin Rash 07/20/2018 documented as of this encounter (statuses as of 07/25/2023) Medications Medication Sig Dispensed Refills Start Date End Date Status Nystatin [id number] UNIT/GM External Powder (Nystop)Indications: Vulvar irritation Apply [...] 1,000 mcgIndications:S/P gastric bypass 1000 mcg IM [id number] 03/31/2023 03/01/2024 Active documented as of this encounter (statuses as of 07/25/2023) Active Problems Problem Noted Date Diagnosed Date Fibroids, submucosal 06/10/2022 Overview: Had follow up with FRAME TENDER. Status post bilateral knee replacements 12/09/19 22 [...] encounter Miscellaneous Notes * Telephone Encounter - Agnieszka Falk OSA [...] Reason for patient's call: Dr. Colindres from [facility] Peer Review Services. Caller was transferred to [facility] at the nurse line. documented in this encounter Plan of Treatment Upcoming Encounters Date Type Department Care Team (Late st Contact Info) Description 08/28/2023 1:00 PM EDT Office Visit [facility] [place] [address] [address] Amari Quesada PA-C [address] [place] [address] 10/10/2023 10:40 AM EDT Office Visit Family Practice [address], [place] [address] [place] [place] [address] Amari Quesada PA-C [address] [place] [address] Health Maintenance Due Date Last Done Comments [...]
--- OUTSIDE RECORDS SUMMARY | 2023-09-27 15:45 | External Medical Summary | Summary of Care ---
Author Name Unknown Organization [facility] Address [address] [place] [address] Phone [phone] Care Team Providers Care Senior System Operator Name Role Phone Unavailable Primary Care Provider Unavailabl e Reason for Visit * Reason Onset Date Comments Advice 07/21/2023 MyG 3/4 Encounter Details Date Type Department Care Team ([facility] st Contact Info) Description 07/21/2023 Telephone Family Practice [facility] [address] [place] [address] Amari Quesada PA-C [address] [place] [address] Advice (MyG 3/) Allergies Active Allergy Reactions Criticality Noted Date Comments Ciprofloxacin 04/24/2014 Sulfa Antibiotics Unknown 07/20/2018 Azithromycin Rash 07/20/2018 documented as of this encounter (statuses as of 07/24/2023) Medications Medication Sig Dispensed Refills Start Date End Date Status Nystatin 819218 UNIT/GM External Powder (Nystop)Indications: Vulvar irritation Apply [...] 1,000 mcgIndications:S/P gastric bypass 1000 mcg IM [id number] 03/31/2023 03/01/2024 Active documented as of this encounter (statuses as of 07/24/2023) Active Problems Problem Noted Date Diagnosed Date Fibroids, submucosal 06/10/2022 Overview: Had follow up with CARE SERVICES MANAGER. Status post bilateral knee replacements 12/09/19 22 [...] calling for peer to peer on the [employer]. Asking for prior weights. Given March weight [...] Reason for patient's call: Dr. Colindres from [facility] Peer Review Services. Caller was transferred to Della Acuña at the nurse line. documented in this encounter Plan of Treatment Upcoming Encounters Date Type Department Care Team (Late st Contact Info) Description 10/10/2023 10:40 AM EDT Office Visit Family Practice [place] [address] [place] [place] [place] [address] Amari Quesada PA-C [address] [place] [address] Health Maintenance Due Date Last Done Comments HIV Screening 1973 HPV/Co-Test 1988 Mammogram 1998 Cologuard 12/28/2003 Fecal Occult Blood Test 12/28/2003 Sigmoidoscopy 12/28/2003 Zoster Vaccines (1 of 2) 2008 Depression Screening 08/08/2020 08/09/2019 COVID-19 Vaccine (2022- season) 2023 08/24/2020, 08/03/2020 Influenza Vaccine (FLU [...]
--- OUTSIDE RECORDS SUMMARY | 2023-09-27 15:45 | External Medical Summary | Summary of Care ---
Author Name Unknown Organization [facility] Address [address] [place] [address] Phone [phone] Care Team Providers Care Car Checker Name Role Phone Danielle Mccarthy DO Primary Care Provider [phone] Reason for Visit * Reason Comments Weight Check Weight check for Weg ovy 187.2lb Encounter Details Date Type Department Care Team ([facility] [address] Contact Info) Description 07/06/2023 9:00 AM EST Nurse Only Ancillary [facility] [address] [place] [address] [place], Nurse Fp [facility] [address] [place] [address] Weight Check (Weight check for Wegovy 187.... Allergies Active Allergy Reactions Criticality Noted Date Comments Ciprofloxacin 04/24/2014 Sulfa Antibiotics Unknown 07/20/2018 Azithromycin Rash 07/20/2018 documented as of this encounter (statuses as of 07/06/2023) Medications Medication Sig Dispensed Refills Start Date End Date Status Nystatin [id number] UNIT/GM External Powder (Nystop)Indications: Vulvar irritation Apply [...] 1,000 mcgIndications:S/P gastric bypass 1000 mcg IM [id number] 03/31/2023 03/01/2024 Active documented as of this encounter (statuses as of 07/06/2023) Active Problems Problem Noted Date Diagnosed Date Fibroids, submucosal 06/10/2022 Overview: Had follow up with LIFT DRIVER. 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 Chronic fatigue syndrome 02/08/2016 Pure hypercholesterolemia 02/08/2016 Vitamin D deficiency 02/08/2016 documented as of this encounter (statuses as of 07/06/2023) Resolved Problems Problem Noted Date Diagnosed Date Resolved Date Other specified arthritis, left knee 09/21/2021 12/08/2021 Bilateral chronic knee pain 07/05/2021 12/08/2021 Primary osteoarthritis of right hip 02/04/2021 04/13/2022 Nasal lesion 07/20/2018 06/10/2022 Anxiety 08/05/2014 12/08/2021 documented as of this encounter (statuses as of 07/06/2023) Immunizations Name Administration Dates Next Due COVID-19 mRNA, LNP-s, No Pre serve, 2-Dose Series (Pfizer) 08/24/2020,08/03/2020 TDAP (age 10 and older)(Boostrix) 07/21/2015 TDAP (age 11 and older)(Adacel) 07/21/2015 documented as of this encounter Social History Tobacco Use Types Packs/Day Years Used Date Smoking Tobacco: Former Cigarettes 1 15 Q uit: 07/21/2007 Smokeless Tobacco: Never Alcohol Use Standard [...] got the money to buy more. Patient refused Within the past 12 months, t he food you bought just didn't last and you didn't have money to get more. Patient refused Sex and Gender Information Value Date Recorded Sex Assigned at Female 04/10/2022 8:01 PM EST Gender Identity Female 04/10/2022 8:01 PM EST Sexual Orientation Choose not to disclose 2021 8:01 PM EST Job Start Date Occupation Industry Not on file Not on file Not on file documented as of this encounter Last Filed Vital Signs Vital Sign Reading Time Taken Comments Blood Pressure - - Pulse - - Temperature - - Respiratory Rate - - Oxygen Saturation - - Inhaled Oxygen Concentration - - Weight 84.9 kg (187 lb 3.2 oz) 07/06/2023 9:08 A M EST Height 167.6 cm (5' 6") 07/06/2023 9:08 AM EST Body Mass Index 30.21 07/06/2023 9:08 AM EST documented in this encounter Nursing Notes * Susana Ruth LPN - 07/06/2023 9:09 AM EST Chief Complaint Patient presents with Weight Check Weight check for Vandana 187.2lb documented in this encounter Plan of Treatment Upcoming Encounters Date Type Department Care Team (Late st Contact Info) Description 10/10/2023 10:40 AM EDT [place] [address] [place] [address] Amari Quesada PA-C [address] [place] [place] [address] [address] Health Maintenance Due Date Last Done Comments [...] filedocumented as of this encounter Care Teams Car Checker Relationship Specialty Start Date End Date Danielle Mccarthy DO PCP - General Family Medicine 07/17/18 documented as of this encounter
--- OUTSIDE RECORDS SUMMARY | 2023-09-27 15:45 | External Medical Summary | Summary of Care ---
Author Name Unknown Organization [facility] Address [address] [place] [address] Phone [phone] Care Team Providers Care Concrete Vibrator Operator Name Role Phone Unavailable Primary Care Provider Unavailabl e Reason for Visit * Reason Comments Medication Administration Encounter Details Date Type Department Care Team ([facility] Contact Info) Description 07/25/2023 8:20 AM EST Immunization/Inj ection Ancillary [facility] [address] [place] [address] [place], Nurse Fp [facility] [address] [place] [address] Allergies Active Allergy Reactions Criticality Noted Date Comments Ciprofloxacin 04/24/2014 Sulfa Antibiotics Unknown 07/20/2018 Azithromycin Rash 07/20/2018 documented as of this encounter (statuses as of 07/25/2023) Medications Medication Sig Dispensed Refills Start Date End Date Status Nystatin 819990 UNIT/GM External Powder (Nystop)Indications: Vulvar irritation Apply [...] 1,000 mcgIndications:S/P gastric bypass 1000 mcg IM [id number] 03/31/2023 03/01/2024 Active documented as of this encounter (statuses as of 07/25/2023) Active Problems Problem Noted Date Diagnosed Date Fibroids, submucosal 06/10/2022 Overview: Had follow up with BILINGUAL SALES REPRESENTATIVE. Status post bilateral knee replacements 12/09/19 [...] on file documented as of this encounter Nursing Notes * Nicolette Sanchez LPN - 07/25/2023 8:31 AM EST Pre-Administration Time Out Procedure Performed: Yes Patient Identified (Ask Name/Date of ): Yes Does the patient have a fever greater than 101 degrees today? No Patient allergic to latex? No Has the patient ever fainted after receiving an injection? No VFC Stock: No Immunization(s) verified: Yes, Immunization Name: Vitamin B12, VIS Sheet(s) given: Yes Injection(s) verified: Yes, Injection Name: Vitamin B12 Verified Side and Site: Yes Verified Shot(s) with Parent(s)/Patient: Yes documented in this encounter Plan of Treatment Upcoming Encounters Date Type Department Care Team (Late st Contact Info) Description 10/10/2023 10:40 AM EDT Office Visit Family Practice [address] [place] [address] Amari Quesada PA-C [address] [place] [address] Health Maintenance Due Date Last Done Comments [...] Not on filedocumented as of this encounter Administered Medications Active Administered Medications - up to 3 most recent administrations Medication Order MAR Action Action Date Dose Rate Site vitamin b-12 (Cyanocobalamin) inj 1,000 mcg 1,000 mcg, Intramuscular, [id number], First dose on Mon03/31/23 at 1000, Last dose on Mon02/02/24 at 1000, For 12 doses Given 07/25/2023 8:32 AM EST 1,000 mcg Deltoid Left Upper Given 05/04/2023 9:03 AM EST 1,000 mcg De ltoid Left Upper Given 03/31/2023 9:38 AM EST 1,000 mcg De ltoid Left Upper documented in this encounter
--- OUTSIDE RECORDS SUMMARY | 2023-09-27 15:46 | External Medical Summary | Summary of Care ---
Author Name Unknown Organization [facility] Address [address] [place] [address] Phone [phone] Care Team Providers Care Precision Crop Manager Name Role Phone Danielle Mccarthy DO Primary Care Provider Un available Reason for Visit * Reason Onset Date Comments Emergency Department Follow-Up 04/04/2023 1 06/07 LMOM/ER followup Encounter Details Date Type Department Care Team ([facility] st Contact Info) Description 04/04/2023 Telephone [facility] [address] [place] [address] Danielle Mccarthy DO Emergency Department Follow-Up (04/07 LMOM... Allergies Active Allergy Reactions Criticality Noted Date Comments Ciprofloxacin 04/24/2014 Sulfa Antibiotics Unknown 07/20/2018 Azithromycin Rash 07/20/2018 documented as of this encounter (statuses as of 04/08/2023) Medications Medication Sig Dispensed Refills Start Date End Date Status clobetasol propionate (TEMOVATE) 0.05 % cream Apply topically to affected area 2 times a day. To affected area for up to two weeks. 60 g 3 08/09/2019 Active Nystatin 780791 UNIT/GM External Powder (Nystop)Indications:Vu lvar irritation Apply topically to affected area 3 times a day. Apply to affected area three times a day for 7 days 15 g 0 03/13/2023 Active Wegovy 2.4 MG/0.75ML Subcutaneous Solution Auto-injector (Semaglutide-Weight Management)Indications :S/P gastric bypass,Vitamin B12 deficiency,Vitamin D deficiency,Class 1 obesity due to excess calories with serious comorbidity and body mass index (BMI) of 31.0 to 31.9 in adult Inject 2.4 mg under the skin once a week. 3 mL 2 03/31/2023 Active Hospital, Clinic, or Other Facility Administered Medication Ordered Dose Route Frequency Start Date End Date Status vitamin b-12 (Cyanocobalamin) inj 1,000 mcgIndications:S/P gastric bypass 1000 mcg IM [id number] 03/31/2023 03/01/2024 Active documented as of this encounter (statuses as of 04/08/2023) Active Problems Problem Noted Date Diagnosed Date Fibroids, submucosal 06/10/2022 Overview: Had follow up with STILL TENDER. Status post bilateral knee replacements 12/09/19 Obesity, Class I, BMI 30.0-34.9 (see actual BMI) 12/08/2021 History of hepatitis A 07/05/2021 Overview: 1987 S/P gastric bypass 07/20/2018 Vitamin B12 deficiency 07/20/2018 Degenerative disc disease, thoracic 06/25/2016 Chronic fatigue syndrome 02/08/2016 Pure hypercholesterolemia 02/08/2016 Vitamin D deficiency 02/08/2016 documented as of this encounter (statuses as of 04/08/2023) Resolved Problems Problem Noted Date Diagnosed Date Resolved Date Other specified arthritis, left knee 09/21/2021 12/08/2021 Bilateral chronic knee pain 07/05/2021 12/08/2021 Primary osteoarthritis of right hip 02/04/2021 04/13/2022 Nasal lesion 07/20/2018 06/10/2022 Anxiety 08/05/2014 12/08/2021 documented as of this encounter (statuses as of 04/08/2023) Immunizations Name Administration Dates Next Due COVID-19 [...] Telephone Encounter - Agnieszka Falk OSA - 04/08/2023 10:08 AM EST Spoke to pt. Refused ER follow up appt. * Telephone Encounter - Agnieszka Falk OSA - 04/07/2023 10:04 AM EST LMOM to scheduled ER followup * Telephone Encounter - Magali Gonzalez LPN - 04/06/2023 1:57 PM EST Emergency Department Follow Up: When was patient seen: 04/02 Which ED: [facility] What were they seen for: constipation 4 days What testing did they have done: ct scan What did ED think was wrong (dx): no blockages Any new medications prescribed: one dose of lactulose How is patient feeling today: pt had diarrhea last night, today she had regular BM. I offered to schedule pt an appt, she decline as sx have resolved she is feeling better. * Telephone Encounter - Belgica Colmenares OSA - 04/04/2023 3:05 PM EST Patient needs ED Follow-up. Did patient decline to see other providers in their home clinic? : YES If New Patient - Were surrounding clinics offered? Yes, no appts available within appropriate timeframe Please see call details. documented in this encounter Plan of Treatment Upcoming Encounters Date Type Department Care Team (Late st Contact Info) Description 10/10/2023 10:40 AM EDT [facility] [address] [place] [address] [place] [address] Amari Quesada PA-C [address] [place] [address] [place] [address] Health Maintenance Due Date Last Done [...] filedocumented as of this encounter Care Teams Precision Crop Manager Relationship Specialty Start Date End Date Danielle Mccarthy DO PCP - General Family Medicine 07/17/18 documented as of this encounter
--- OUTSIDE RECORDS SUMMARY | 2023-09-27 15:46 | External Medical Summary | Summary of Care ---
Author Name Unknown Organization [facility] Address [address] [place] [address] Phone [phone] Care Team Providers Care Builder Operator Name Role Phone Danielle Mccarthy DO Primary Care Provider [phone] Reason for Visit * Reason Onset Date Comments Advice 05/11/2023 Encounter Details Date Type Department Care Team ([facility] st Contact Info) Description 05/11/2023 Telephone [facility] [address] [place] [address] Danielle Mccarthy DO [address] [place] [address] Advice Allergies Active Allergy Reactions Criticality Noted Date Comments Ciprofloxacin 04/24/2014 Sulfa Antibiotics Unknown 07/20/2018 Azithromycin Rash 07/20/2018 documented as of this encounter (statuses as of 05/11/2023) Medications Medication Sig Dispensed Refills Start Date End Date Status clobetasol propionate (TEMOVATE) 0.05 % cream Apply topically to affected area 2 times a day. To affected area for up to two weeks. 60 g 3 08/09/2019 Active Nystatin [id number] UNIT/GM External Powder (Nystop)Indications:Vu lvar irritation Apply [...] 1,000 mcgIndications:S/P gastric bypass 1000 mcg IM [id number] 03/31/2023 03/01/2024 Active documented as of this encounter (statuses as of 05/11/2023) Active Problems Problem Noted Date Diagnosed Date Fibroids, submucosal 06/10/2022 Overview: Had follow up with CONSUMER MARKETING ANALYST. Status post bilateral knee replacements 12/09/19 Obesity, Class I, BMI 30.0-34.9 (see actual BMI) 12/08/2021 History of hepatitis A 07/05/2021 Overview: 1987 S/P gastric bypass 07/20/2018 Vitamin B12 deficiency 07/20/2018 Degenerative disc disease, thoracic 06/25/2016 Chronic fatigue syndrome 02/08/2016 Pure hypercholesterolemia 02/08/2016 Vitamin D deficiency 02/08/2016 documented as of this encounter (statuses as of 05/11/2023) Resolved Problems Problem Noted Date Diagnosed Date Resolved Date Other specified arthritis, left knee 09/21/2021 12/08/2021 Bilateral chronic knee pain 07/05/2021 12/08/2021 Primary osteoarthritis of right hip 02/04/2021 04/13/2022 Nasal lesion 07/20/2018 06/10/2022 Anxiety 08/05/2014 12/08/2021 documented as of this encounter (statuses as of 05/11/2023) Immunizations Name Administration Dates Next Due COVID-19 mRNA, LNP-s, No Pre serve, 2-Dose Series ([employer]) 08/24/2020,08/03/2020 TDAP (age 10 and older)(Boostrix) 07/21/2015 [...] encounter Miscellaneous Notes * Telephone Encounter - Le Richmond DO - 05/11/2023 2:31 PM EST Pt should be evaluated * Telephone Encounter - Alice Pro LPN - 05/11/2023 8:52 AM EST Patient calling in stating that about 10 days ago she bent down to pull up her pants and she felt astabbing in her back. She stated that she had 2 massages and was doing stretches and she started to feels better. Yesterday she was vacuuming and the same thing happened again where she started having the stabbingin her back. She has been using OTC Advil, and had a prescription muscle relaxer but she ran out. She stated that the It band running down her leg is nothing but knots, she believes that she needs PT to work it out at this point. No appointments today or tomorrow. She is asking if she could get a prescription for a muscle relaxer and PT referral. Please advise. Pharmacy selected. documented in this encounter Plan of Treatment Upcoming Encounters Date Type Department Care Team ([facility] st Contact Info) Description 10/10/2023 10:40 AM EDT Office Visit Family Practice [facility] Luis Manuel, She[place] [address] [place] [address] Amari Quesada PA-C [address] [facility] [id number] Health Maintenance Due Date Last Done Comments [...] filedocumented as of this encounter Care Teams Builder Operator Relationship Specialty Start Date End Date Danielle Mccarthy DO PCP - General Family Medicine 07/17/18 documented as of this encounter
--- OUTSIDE RECORDS SUMMARY | 2023-09-27 15:46 | External Medical Summary | Summary of Care ---
Author Name Unknown Organization [facility] Address [address] [place] [address] Phone [phone] Care Team Providers Care Location Manager Name Role Phone Danielle Mccarthy DO Primary Care Provider Un available Reason for Visit * Reason Onset Date Comments Emergency Department Follow-Up 04/04/2023 E R followup Encounter Details Date Type Department Care Team ([facility] st Contact Info) Description 04/04/2023 Telephone [facility] [address] [place], [place] [id number] Danielle Mccarthy DO Emergency Department Follow-Up (ER followup) Allergies Active Allergy Reactions Criticality Noted Date Comments Ciprofloxacin 04/24/2014 Sulfa Antibiotics Unknown 07/20/2018 Azithromycin Rash 07/20/2018 documented as of this encounter (statuses as of 04/07/2023) Medications Medication Sig Dispensed Refills Start Date End Date Status clobetasol propionate (TEMOVATE) 0.05 % cream Apply topically to affected area 2 times a day. To affected area for up to two weeks. 60 g 3 08/09/2019 Active Nystatin [id number] UNIT/GM External Powder (Nystop)Indications:Vu lvar irritation Apply [...] 1,000 mcgIndications:S/P gastric bypass 1000 mcg IM [id number] 03/31/2023 03/01/2024 Active documented as of this encounter (statuses as of 04/07/2023) Active Problems Problem Noted Date Diagnosed Date Fibroids, submucosal 06/10/2022 Overview: Had follow up with MEDICAL CODING TECHNICIAN. 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 Chronic fatigue syndrome 02/08/2016 Pure hypercholesterolemia 02/08/2016 Vitamin D deficiency 02/08/2016 documented as of this encounter (statuses as of 04/07/2023) Resolved Problems Problem Noted Date Diagnosed Date Resolved Date Other specified arthritis, left knee 09/21/2021 12/08/2021 Bilateral chronic knee pain 07/05/2021 12/08/2021 Primary osteoarthritis of right hip 02/04/2021 04/13/2022 Nasal lesion 07/20/2018 06/10/2022 Anxiety 08/05/2014 12/08/2021 documented as of this encounter (statuses as of 04/07/2023) Immunizations Name Administration Dates Next Due COVID-19 [...] Follow Up: When was patient seen: 04/02 [facility] ED: [facility] What were they seen for: constipation 4 [...] Office Visit Family Practice [address] [place] [address] Amari Quesada PA-C [address] [place] [address] Health Maintenance Due Date Last Done Comments [...] filedocumented as of this encounter Care Teams Location Manager Relationship Specialty Start Date End Date Danielle Mccarthy DO PCP - General Family Medicine 07/17/18 documented as of this encounter
--- OUTSIDE RECORDS SUMMARY | 2023-09-27 15:46 | External Medical Summary | Summary of Care ---
Author Name Unknown Organization [facility] Address [address] [place] [address] Phone [phone] Care Team Providers Care Managed Services Sales Consultant Name Role Phone Danielle Mccarthy Primary Care Provider [phone] Encounter Details Date Type Department Care Team ([facility] Contact Info) Description 05/18/2023 Telephone Family Practice [facility] [address] [place] [address] Amari Quesada PA-C [address] [place] [address] Allergies Active Allergy Reactions Criticality Noted Date Comments Ciprofloxacin 04/24/2014 Sulfa Antibiotics Unknown 07/20/2018 Azithromycin Rash 07/20/2018 documented as of this encounter (statuses as of 05/18/2023) Medications Medication Sig Dispensed Refills Start Date End Date Status clobetasol propionate (TEMOVATE) 0.05 % cream Apply topically to affected area 2 times a day. To affected area for up to two weeks. 60 g 3 08/09/2019 Active Nystatin [id number] UNIT/GM External Powder (Nystop)Indications:V ulvar irritation Apply topically to affected area 3 times a day. Apply to affected area three times a day for 7 days 15 g 0 03/13/2023 Active Wegovy 2.4 MG/0.75ML Subcutaneous Solution Auto-injector (Semaglutide-Weight Management)Indication s:S/P gastric bypass,Vitamin B12 deficiency,Vitamin D deficiency,Class 1 obesity due to excess calories with serious comorbidity and body mass index (BMI) of 31.0 to 31.9 in adult Inject 2.4 mg under the skin once a week. 3 mL 2 03/31/2023 Active Cyclobenzaprine HCl 10 MG Oral Tablet (Flexeril)Indications :Acute bilateral low back pain without sciatica Take 1 Tablet by mouth at bedtime as needed for Muscle spasms. 30 Tablet 2 05/16/2023 Active Hospital, Clinic, or Other Facility Administered Medication Ordered Dose Route Frequency Start Date End Date Status vitamin b-12 (Cyanocobalamin) inj 1,000 mcgIndications:S/P gastric bypass 1000 mcg IM [id number] 03/31/2023 03/01/2024 Active documented as of this encounter (statuses as of 05/18/2023) Active Problems Problem Noted Date Diagnosed Date Fibroids, submucosal 06/10/2022 Overview: Had follow up with CEMENT BREAKER. 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 Chronic fatigue syndrome 02/08/2016 Pure hypercholesterolemia 02/08/2016 Vitamin D deficiency 02/08/2016 documented as of this encounter (statuses as of 05/18/2023) Resolved Problems Problem Noted Date Diagnosed Date Resolved Date Other specified arthritis, left knee 09/21/2021 12/08/2021 Bilateral chronic knee pain 07/05/2021 12/08/2021 Primary osteoarthritis of right hip 02/04/2021 04/13/2022 Nasal lesion 07/20/2018 06/10/2022 Anxiety 08/05/2014 12/08/2021 documented as of this encounter (statuses as of 05/18/2023) Immunizations Name Administration Dates Next Due COVID-19 [...] Telephone Encounter - Amari Quesada PA-C - 05/18/2023 2:31 PM EST Message sent to patient. documented in this encounter Plan of Treatment Upcoming Encounters Date Type Department Care Team (Late st Contact Info) Description 10/10/2023 10:40 AM EDT Office Visit Family Practice [address] [place] [address] Amari Quesada PA-C [address] [place] [address] Health Maintenance Due Date Last Done Comments [...] filedocumented as of this encounter Care Teams Managed Services Sales Consultant Relationship Specialty Start Date End Date Danielle Mccarthy DO PCP - General Family Medicine 07/17/18 documented as of this encounter
--- OUTSIDE RECORDS SUMMARY | 2023-09-27 15:46 | External Medical Summary | Summary of Care ---
Author Name Unknown Organization [facility] Address [address] [place] [address] Phone [phone] Care Team Providers Care Batt Machine Operator Name Role Phone Danielle Mccarthy DO Primary Care Provider Un available Encounter Details Date Type Department Care Team ([facility] st Contact Info) Description 04/07/2023 Refill Family Practice [facility] [address] [place] [address] Amari Quesada PA-C [address] [place] [address] Vitamin D deficiency* Allergies Active Allergy Reactions Criticality Noted Date Comments Ciprofloxacin 04/24/2014 Sulfa Antibiotics Unknown 07/20/2018 Azithromycin Rash 07/20/2018 documented as of this encounter (statuses as of 04/11/2023) Medications Medication Sig Dispensed Refills Start Date End Date Status clobetasol propionate (TEMOVATE) 0.05 % cream Apply topically to affected area 2 times a day. To affected area for up to two weeks. 60 g 3 08/09/2019 Active Nystatin [id number] UNIT/GM External Powder (Nystop)Indication s:Vulvar irritation Apply [...] a week. 3 mL 2 03/31/2023 Active Cholecalciferol 125 MCG (5000 UT) Oral Capsule Take 1 Capsule by mouth in the morning. 0 04/07/2023 Discontinued Hospital, Clinic, or Other Facility Administered Medication Ordered Dose Route Frequency Start Date End Date Status vitamin b-12 (Cyanocobalamin) inj 1,000 mcgIndications:S/P gastric bypass 1000 mcg IM [id number] 03/31/2023 03/01/2024 Active documented as of this encounter (statuses as of 04/11/2023) Active Problems Problem Noted Date Diagnosed Date Fibroids, submucosal 06/10/2022 Overview: Had follow up with RESTROOMS OR LOUNGES MAID. 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 Chronic fatigue syndrome 02/08/2016 Pure hypercholesterolemia 02/08/2016 Vitamin D deficiency 02/08/2016 documented as of this encounter (statuses as of 04/11/2023) Resolved Problems Problem Noted Date Diagnosed Date Resolved Date Other specified arthritis, left knee 09/21/2021 12/08/2021 Bilateral chronic knee pain 07/05/2021 12/08/2021 Primary osteoarthritis of right hip 02/04/2021 04/13/2022 Nasal lesion 07/20/2018 06/10/2022 Anxiety 08/05/2014 12/08/2021 documented as of this encounter (statuses as of 04/11/2023) Immunizations Name Administration Dates Next Due COVID-19 [...] encounter Miscellaneous Notes * Telephone Encounter - Kacie Rivera CMA - 04/10/2023 2:13 PM EST This was already addressed. Patient did start taking supplement already * Telephone Encounter - Amari Quesada PA-C - 04/07/2023 9:32 AM EST Vitamin-D remains deficient. I do not think she is taking vitamin-D supplementation. I would recommend starting vitamin D3 67745 IU weekly x8 weeks. Medication pending if she is willing to start. documented in this encounter Plan of Treatment Upcoming Encounters Date Type Department Care Team (Late st Contact Info) Description 10/10/2023 10:40 AM EDT Office Visit Family Practice [address] [place] [address] Amari Quesada PA-C [address] [place] [address] Health Maintenance Due Date Last Done Comments [...] as of this encounter Visit Diagnoses Diagnosis Vitamin D deficiency- Primary Unspecified vitamin D deficiency documented in this encounter Care Teams Batt Machine Operator Relationship Specialty Start Date End Date Danielle Mccarthy DO PCP - General Family Medicine 07/17/18 documented as of this encounter
--- OUTSIDE RECORDS SUMMARY | 2023-09-27 15:46 | External Medical Summary | Summary of Care ---
Author Name Unknown Organization [facility] Address [address] [place] [address] Phone [phone] Care Team Providers Care Surgical Scrub Technician Name Role Phone Danielle Mccarthy DO Primary Care Provider [phone] Reason for Visit * Reason Onset Date Comments Appointment 05/11/2023 Back pain Encounter Details Date Type Department Care Team ([facility] st Contact Info) Description 05/11/2023 Telephone Family Practice [facility] [address] [place], [place] [id number] Danielle Mccarthy DO [address] [place] [address] Appointment (Back pain) Allergies Active Allergy Reactions Criticality Noted Date Comments Ciprofloxacin 04/24/2014 Sulfa Antibiotics Unknown 07/20/2018 Azithromycin Rash 07/20/2018 documented as of this encounter (statuses as of 05/12/2023) Medications Medication Sig Dispensed Refills Start Date End Date Status clobetasol propionate (TEMOVATE) 0.05 % cream Apply topically to affected area 2 times a day. To affected area for up to two weeks. 60 g 3 08/09/2019 Active Nystatin [id number] UNIT/GM External Powder (Nystop)Indications:Vu lvar irritation Apply [...] 1,000 mcgIndications:S/P gastric bypass 1000 mcg IM [id number] 03/31/2023 03/01/2024 Active documented as of this encounter (statuses as of 05/12/2023) Active Problems Problem Noted Date Diagnosed Date Fibroids, submucosal 06/10/2022 Overview: Had follow up with DEHYDRATOR OPERATOR. Status post bilateral knee replacements 12/09/19 Obesity, Class I, BMI 30.0-34.9 (see actual BMI) 12/08/2021 History of hepatitis A 07/05/2021 Overview: 1987 S/P gastric bypass 07/20/2018 Vitamin B12 deficiency 07/20/2018 Degenerative disc disease, thoracic 06/25/2016 Chronic fatigue syndrome 02/08/2016 Pure hypercholesterolemia 02/08/2016 Vitamin D deficiency 02/08/2016 documented as of this encounter (statuses as of 05/12/2023) Resolved Problems Problem Noted Date Diagnosed Date Resolved Date Other specified arthritis, left knee 09/21/2021 12/08/2021 Bilateral chronic knee pain 07/05/2021 12/08/2021 Primary osteoarthritis of right hip 02/04/2021 04/13/2022 Nasal lesion 07/20/2018 06/10/2022 Anxiety 08/05/2014 12/08/2021 documented as of this encounter (statuses as of 05/12/2023) Immunizations Name Administration Dates Next Due COVID-19 mRNA, LNP-s, No Pre serve, 2-Dose Series ([employer]) 08/24/2020,08/03/2020 TDAP (age 10 and older)(Boostrix) 07/21/2015 [...] encounter Miscellaneous Notes * Telephone Encounter - Alice Pro LPN - 05/12/2023 8:31 AM EST Patient is aware and verbalizes understanding. Patient scheduled for 05/16/2023 at 9:00 with Thiago Quesada * Telephone Encounter - Le Richmond DO [...] Care Team (Late st Contact Info) Description 05/16/2023 9:00 AM EST Office Visit [facility] Sheeba Issa [address] [place] [address] Amari Quesada PA-C [address] [place] [place] [address] 10/10/2023 10:40 AM EDT Office Visit [facility] [place] Sheeba Issa [address] [place] [place] [address] Amari Quesada PA-C [address] [place] [place] [address] Health Maintenance Due Date Last Done Comments [...] filedocumented as of this encounter Care Teams Surgical Scrub Technician Relationship Specialty Start Date End Date Danielle Mccarthy DO PCP - General Family Medicine 07/17/18 documented as of this encounter
--- OUTSIDE RECORDS SUMMARY | 2023-09-27 15:46 | External Medical Summary | Summary of Care ---
Author Name Unknown Organization [facility] Address [address] [place] [address] Phone [phone] Care Team Providers Care Scientific Informatics Analyst Name Role Phone Danielle Mccarthy DO Primary Care Provider [phone] Reason for Visit * Reason Onset Date Comments Appointment 05/11/2023 Back pain Encounter Details Date Type Department Care Team ([facility] st Contact Info) Description 05/11/2023 Telephone Family Practice [facility] [address] [place], [place] [phone] Danielle Mccarthy DO [address] [place] [address] Appointment (Back pain) Allergies Active Allergy Reactions [...] weeks. 60 g 3 08/09/2019 Active Nystatin [id number] UNIT/GM External Powder (Nystop)Indications:Vu lvar irritation Apply [...] 1,000 mcgIndications:S/P gastric bypass 1000 mcg IM [id number] 03/31/2023 03/01/2024 Active documented as of this encounter (statuses as of 05/11/2023) Active Problems Problem Noted Date Diagnosed Date Fibroids, submucosal 06/10/2022 Overview: Had follow up with MISSION SYSTEMS ENGINEER. Status post bilateral knee replacements 12/09/19 Obesity, [...] mRNA, LNP-s, No Pre serve, 2-Dose Series ([employer]) 08/24/2020,08/03/2020 TDAP (age 10 and older)(Boostrix) 07/21/2015 [...] Office Visit Family Practice [address] [place] [address] Amari Quesada PA-C [address] [place] [address] Health Maintenance Due Date Last Done [...] filedocumented as of this encounter Care Teams Scientific Informatics Analyst Relationship Specialty Start Date End Date Danielle Mccarthy DO PCP - General Family Medicine 07/17/18 documented as of this encounter
--- OUTSIDE RECORDS SUMMARY | 2023-09-27 15:46 | External Medical Summary | Summary of Care ---
Author Name Unknown Organization [facility] Address [address] [place] [address] Phone [phone] Care Team Providers Care Geographic Information Scientist Name Role Phone Danielle Mccarthy DO Primary Care Provider [phone] Reason for Visit * Reason Onset Date Comments Advice 05/11/2023 Encounter Details Date Type Department Care Team ([facility] st Contact Info) Description 05/11/2023 Telephone [facility] Practice [facility] [address] [place] [address] Danielle Mccarthy DO [address] [place] [address] Advice Allergies Active Allergy Reactions Criticality Noted [...] weeks. 60 g 3 08/09/2019 Active Nystatin [id number] UNIT/GM External Powder (Nystop)Indications:Vu lvar irritation Apply [...] 1,000 mcgIndications:S/P gastric bypass 1000 mcg IM [id number] 03/31/2023 03/01/2024 Active documented as of this encounter (statuses as of 05/11/2023) Active Problems Problem Noted Date Diagnosed Date Fibroids, submucosal 06/10/2022 Overview: Had follow up with LACTATION NURSE. Status post bilateral knee replacements 12/09/19 Obesity, [...] mRNA, LNP-s, No Pre serve, 2-Dose Series ([employer]) 08/24/2020,08/03/2020 TDAP (age 10 and older)(Boostrix) 07/21/2015 [...] 10:40 AM EDT Office Visit Family Practice [place] Luis Manuel, Sheeba [address] [place] [address] Amair Quesada PA-C [address] [place] [phone] Health Maintenance Due Date Last Done Comments [...] filedocumented as of this encounter Care Teams Geographic Information Scientist Relationship Specialty Start Date End Date Danielle Mccarthy DO PCP - General Family Medicine 07/17/18 documented as of this encounter
--- OUTSIDE RECORDS SUMMARY | 2023-09-27 15:46 | External Medical Summary | Summary of Care ---
Author Name Unknown Organization [facility] Address [address] [place] [address] Phone [phone] Care Team Providers Care Optometry Teacher Name Role Phone Danielle Mccarthy DO Primary Care Provider [phone] Reason for Referral * Evaluate & Treat - Unlimited Visits (Within 10 days (routine)) - Pending Review Specialty Diagnoses / Procedures Referred By Contact Referred To Contact GI NUTRITION/IM / Gastroenterology Diagnoses S/P gastric bypass Vitamin D deficiency Danielle Mccarthy DO [address] [place] [address] Referral ID Status Reason Start Date Expiration Date Visits Requested Visits Authorized [id number] Pending Review Specialty Services Required 3 [phone] Question Answer Referral Priority Within 10 days (routine) Where should this appointment be scheduled? [facility] For what condition is the patient being seen? Malnutrition Reason for Visit * Reason Onset Date Comments Referral 04/03/2023 GI nutrition [facility] 04/04 Encounter Details Date Type Department Care Team ([facility] Contact Info) Description [facility]/03[facility] [address] [place] [address] Danielle Mccarthy DO [address] [place] [address] Referral (GI nutrition [facility] 04/04) Allergies Active Allergy Reactions Criticality Noted Date Comments Ciprofloxacin 04/24/2014 Sulfa Antibiotics Unknown 07/20/2018 Azithromycin Rash 07/20/2018 documented as of this encounter (statuses as of 04/06/2023) Medications Medication Sig Dispensed Refills Start Date End Date Status clobetasol propionate (TEMOVATE) 0.05 % cream Apply topically to affected area 2 times a day. To affected area for up to two weeks. 60 g 3 08/09/2019 Active Cholecalciferol 125 MCG (5000 UT) Oral Capsule Take 1 Capsule by mouth in the morning. 0 Active Nystatin [id number] UNIT/GM External Powder (Nystop)Indications:Vu lvar irritation Apply [...] 1,000 mcgIndications:S/P gastric bypass 1000 mcg IM [id number] 03/31/2023 03/01/2024 Active documented as of this encounter (statuses as of 04/06/2023) Active Problems Problem Noted Date Diagnosed Date Fibroids, submucosal 06/10/2022 Overview: Had follow up with CANDY BUTCHER. 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 Chronic fatigue syndrome 02/08/2016 Pure hypercholesterolemia 02/08/2016 Vitamin D deficiency 02/08/2016 documented as of this encounter (statuses as of 04/06/2023) Resolved Problems Problem Noted Date Diagnosed Date Resolved Date Other specified arthritis, left knee 09/21/2021 12/08/2021 Bilateral chronic knee pain 07/05/2021 12/08/2021 Primary osteoarthritis of right hip 02/04/2021 04/13/2022 Nasal lesion 07/20/2018 06/10/2022 Anxiety 08/05/2014 12/08/2021 documented as of this encounter (statuses as of 04/06/2023) Immunizations Name Administration Dates Next Due COVID-19 [...] encounter Miscellaneous Notes * Telephone Encounter - Magali Gonazlez LPN - 04/06/2023 1:52 PM EST Patient returned call. Informed of message. Verbalized understanding. She hasn't taken any of her supplements for months. She would like to get in the habit of taking her Vit d and repeat labs. She has vit D 3 50 mcg Pt will start taking daily. * Telephone Encounter - Kacie Rivera CMA - 04/04/2023 9:54 AM EST Attempted to reach patient regarding message below. Left voicemail to return our call. If patient returns call fwd to nurse line @ [phone]. * Telephone Encounter - Olga Adorno OSA - 04/04/2023 8:17 AM EST Please send encounter to [id number] when pt is aware of GI nutrition referral so appt can be dianne'd. * Telephone Encounter - Danielle Mccarthy DO - 04/03/2023 10:36 PM EST Needs vitamin-D supplementation. See how much vitamin-D she is taking? Recommend getting set up with GI nutrition since she is status post gastric bypass. May need IV infusions for some of her vitamin deficiencies. documented in this encounter Plan of Treatment Upcoming Encounters Date Type Department Care Team (Late st Contact Info) Description 10/10/2023 10:40 AM EDT Office Visit Family [facility] [address] [place] [address] Amari Quesada PA-C [address] [place] [address] Scheduled Referrals Name Type Priority Associated Diagnoses Orde r Schedule GI NUTRITION REFERRAL OP Referral Within 10 days (routine) S/P gastric bypass Vitamin D deficiency Ordered: 04/03/2023 Health Maintenance Due Date Last Done Comments [...] as of this encounter Visit Diagnoses Diagnosis S/P gastric bypass- Primary Bariatric surgery status Vitamin D deficiency Unspecified vitamin D deficiency documented in this encounter Care Teams Optometry Teacher Relationship Specialty Start Date End Date Danielle Mccarthy DO [address] [facility] [place] [address] PCP - General Family Medicine 07/17/18 documented as of this encounter
--- OUTSIDE RECORDS SUMMARY | 2023-09-27 15:46 | External Medical Summary | Summary of Care ---
Author Name Unknown Organization [facility] Address [address] [place] [address] Phone [phone] Care Team Providers Care Trimmer Sorter Name Role Phone Danielle Mccarthy DO Primary Care Provider Un available Reason for Visit * Reason Comments Medication Administration B12 Encounter Details Date Type Department Care Team ([facility] Contact Info) Description 05/04/2023 9:00 AM EST Immunization/Inj ection Ancillary [facility] [address] [place] [address] [place], Nurse [facility] [address] [place] [address] Allergies Active Allergy Reactions Criticality Noted Date Comments Ciprofloxacin 04/24/2014 Sulfa Antibiotics Unknown 07/20/2018 Azithromycin Rash 07/20/2018 documented as of this encounter (statuses as of 05/04/2023) Medications Medication Sig Dispensed Refills Start Date End Date Status clobetasol propionate (TEMOVATE) 0.05 % cream Apply topically to affected area 2 times a day. To affected area for up to two weeks. 60 g 3 08/09/2019 Active Nystatin [id number] UNIT/GM External Powder (Nystop)Indications:Vu lvar irritation Apply [...] 1,000 mcgIndications:S/P gastric bypass 1000 mcg IM [id number] 03/31/2023 03/01/2024 Active documented as of this encounter (statuses as of 05/04/2023) Active Problems Problem Noted Date Diagnosed Date Fibroids, submucosal 06/10/2022 Overview: Had follow up with HEEL SLICKER. 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 Chronic fatigue syndrome 02/08/2016 Pure hypercholesterolemia 02/08/2016 Vitamin D deficiency 02/08/2016 documented as of this encounter (statuses as of 05/04/2023) Resolved Problems Problem Noted Date Diagnosed Date Resolved Date Other specified arthritis, left knee 09/21/2021 12/08/2021 Bilateral chronic knee pain 07/05/2021 12/08/2021 Primary osteoarthritis of right hip 02/04/2021 04/13/2022 Nasal lesion 07/20/2018 06/10/2022 Anxiety 08/05/2014 12/08/2021 documented as of this encounter (statuses as of 05/04/2023) Immunizations Name Administration Dates Next Due COVID-19 mRNA, LNP-s, No Pre serve, 2-Dose Series ([employer]) 08/24/2020,08/03/2020 TDAP (age 10 and older)(Boostrix) 07/21/2015 [...] as of this encounter Nursing Notes * Susana Ruth LPN - 05/04/2023 9:05 AM EST Pre-Administration Time Out Procedure Performed: Yes Patient Identified (Ask Name/Date of ): Yes Does the patient have a fever greater than 101 degrees today? No Patient allergic to latex? No Has the patient ever fainted after receiving an injection? No VFC Stock: No Immunization(s) verified: Yes, Immunization Name: B12, VIS Sheet(s) given: Yes Verified Side and Site: Yes Verified Shot(s) with Parent(s)/Patient: Yes documented in this encounter Plan of Treatment Upcoming Encounters Date Type Department Care Team (Late st Contact Info) Description 10/10/2023 10:40 AM EDT Office Visit Family Practice [address] [place] [address] Amari Quesada PA-C [address] [place] [address] [address] Health Maintenance Due Date Last [...] (Cyanocobalamin) inj 1,000 mcg 1,000 mcg, Intramuscular, [id number], First dose on Mon03/31/23 at 1000, Last dose on Mon02/02/24 at 1000, For 12 doses Given 05/04/2023 9:03 AM EST 1,000 mcg Deltoid Left Upper Given 03/31/2023 9:38 AM EST 1,000 mcg De ltoid Left Upper documented in this encounter Care Teams Trimmer Sorter Relationship Specialty Start Date End Date Danielle Mccarthy DO PCP - General Family Medicine 07/17/18 documented as of this encounter
--- OUTSIDE RECORDS SUMMARY | 2023-09-27 15:46 | External Medical Summary | Summary of Care ---
Author Name Unknown Organization [facility] Address [address] [place] [address] Phone [phone] Care Team Providers Care Swimming Coach Name Role Phone Danielle Mccarthy Primary Care Provider [phone] Encounter Details Date Type Department Care Team ([facility] st Contact Info) Description 04/05/2023 Orders Only Family Practice [facility] [address] [place] [address] Amari Quesada PA-C [address] [place] [address] Allergies Active Allergy Reactions Criticality Noted Date Comments Ciprofloxacin 04/24/2014 Sulfa Antibiotics Unknown 07/20/2018 Azithromycin Rash 07/20/2018 documented as of this encounter (statuses as of 04/05/2023) Medications Medication Sig Dispensed Refills Start Date End Date Status clobetasol propionate (TEMOVATE) 0.05 % cream Apply topically to affected area 2 times a day. To affected area for up to two weeks. 60 g 3 08/09/2019 Active Cholecalciferol 125 MCG (5000 UT) Oral Capsule Take 1 Capsule by mouth in the morning. 0 Active Nystatin [id number] UNIT/GM External Powder (Nystop)Indications:Vu lvar irritation Apply [...] 1,000 mcgIndications:S/P gastric bypass 1000 mcg IM [id number] 03/31/2023 03/01/2024 Active documented as of this encounter (statuses as of 04/05/2023) Active Problems Problem Noted Date Diagnosed Date Fibroids, submucosal 06/10/2022 Overview: Had follow up with [facility]. 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 Chronic fatigue syndrome 02/08/2016 Pure hypercholesterolemia 02/08/2016 Vitamin D deficiency 02/08/2016 documented as of this encounter (statuses as of 04/05/2023) Resolved Problems Problem Noted Date Diagnosed Date Resolved Date Other specified arthritis, left knee 09/21/2021 12/08/2021 Bilateral chronic knee pain 07/05/2021 12/08/2021 Primary osteoarthritis of right hip 02/04/2021 04/13/2022 Nasal lesion 07/20/2018 06/10/2022 Anxiety 08/05/2014 12/08/2021 documented as of this encounter (statuses as of 04/05/2023) Immunizations Name Administration Dates Next Due COVID-19 [...] Office Visit Family Practice [address] [place] [address] Amari Quesada PA-C [address] [place] [address] Health Maintenance Due Date Last Done Comments [...] Procedure Name Priority Date/Time Associated Diagnosis Comments CHEMISTRY-OUTSIDE Routine 04/03/2023 documented in this encounter Results * CHEMISTRY-OUTSIDE (04/03/2023) Not all results display below - see scan for full detail OUTSIDE LAB (SEE SCANNED REPORT) Comment:SCAN INCL: ED LABS: UA,TROP,CMP, AMYLASE,LIPASE,CBCD, CREATININE-OUTSID E LAB 0.80 0.40 - 1.50 MG/DL OUTSIDE LAB (SEE SCANNED REPORT) EGFR-OUTSIDE LAB 82 OUT SIDE LAB (SEE SCANNED REPORT) POTASSIUM-OUTSIDE LAB 4.1 3.6 - 5.0 MMOL/L OUTSIDE LAB (SEE SCANNED REPORT) GLUCOSE-OUTSIDE LAB 77 65 - 110 MG/DL OUTSIDE LAB (SEE SCANNED REPORT) HOURS FASTING OUTSID E LAB (SEE SCANNED REPORT) TRIGLYCERIDES-OUT SIDE LAB OUTSIDE LAB (SEE SCANNED REPORT) CHOLESTEROL-OUTSI DE LAB OUTSIDE LAB (SEE SCANNED REPORT) HDL-OUTSIDE LAB OUTS GINA LAB (SEE SCANNED REPORT) CHOL/HDL RATIO-OUTSIDE LAB OUTSIDE LA B (SEE SCANNED REPORT) LDL (CALCULATED)-OUTS GINA LAB OUTSIDE LAB (SEE SCANNED REPORT) LDL (DIRECT MEASURE)-OUTSIDE LAB OUTSIDE LAB (SEE SCANNED REPORT) HEMOGLOBIN, [id number] LAB OUTSIDE LAB (SEE SCANNED REPORT) PHOSPHORUS-OUTSID E LAB OUTSIDE LAB (SEE SCANNED REPORT) PTH-OUTSIDE LAB OUTS GINA LAB (SEE SCANNED REPORT) MICROALBUMIN RATIO-OUTSIDE LAB OUTSIDE LA B (SEE SCANNED REPORT) PROTEIN, UA-OUTSIDE LAB OUTSIDE LAB (SEE SCANNED REPORT) HEMOGLOBIN-OUTSID E LAB 12.7 12.0 - 16.0 GM/DL OUTSIDE LAB (SEE SCANNED REPORT) 04/03/2023 History Per Patient LABORATORY OUTSIDE LAB (SEE SCANNED REPORT) documented in this encounter Care Teams Swimming Coach Relationship Specialty Start Date End Date Danielle Mccarthy DO [address] [facility] [place] [id number] PCP - General Family Medicine 07/17/18 documented as of this encounter
--- OUTSIDE RECORDS SUMMARY | 2023-09-27 15:46 | External Medical Summary | Summary of Care ---
Author Name Unknown Organization [facility] Address [address] [place] [address] Phone [phone] Care Team Providers Care Social Director Name Role Phone Danielle Mccarthy Primary Care Provider [phone] [phone] Reason for Visit * Reason Comments eRx-Medication Refill Encounter Details Date Type Department Care Team ([facility] st Contact Info) Description 06/30/2023 Refill [facility] [address] [place] [address] Amari Quesada PA-C [address] [place] [address] S/P gastric bypass; Vitamin B12 deficiency; Vitamin D deficiency; Class 1 obesity due to excess calories with serious comorbidity and body mass index (BMI) of 31.0 to 31.9 in adult Allergies Active Allergy Reactions Criticality Noted Date Comments Ciprofloxacin 04/24/2014 Sulfa Antibiotics Unknown 07/20/2018 Azithromycin Rash 07/20/2018 documented as of this encounter (statuses as of 06/30/2023) Medications Medication Sig Dispensed Refills Start Date End Date Status clobetasol propionate (TEMOVATE) 0.05 % cream Apply topically to affected area 2 times a day. To affected area for up to two weeks. 60 g 3 08/09/2019 Active Nystatin [id number] UNIT/GM External Powder (Nystop)Indication s:Vulvar irritation Apply [...] A WEEK. 3 mL 2 06/30/2023 Active Wegovy 2.4 MG/0.75ML Subcutaneous Solution Auto-injector (Semaglutide-Weigh t Management)Indicat ions:S/P gastric bypass,Vitamin B12 deficiency,Vitamin D deficiency,Class 1 obesity due to excess calories with serious comorbidity and body mass index (BMI) of 31.0 to 31.9 in adult Inject 2.4 mg under the skin once a week. 3 mL 2 03/31/2023 Discontinued Hospital, Clinic, or Other Facility Administered Medication Ordered Dose Route Frequency Start Date End Date Status vitamin b-12 (Cyanocobalamin) inj 1,000 mcgIndications:S/P gastric bypass 1000 mcg IM [id number] 03/31/2023 03/01/2024 Active documented as of this encounter (statuses as of 06/30/2023) Active Problems Problem Noted Date Diagnosed Date Fibroids, submucosal 06/10/2022 Overview: Had follow up with PROOF CLERK. 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 Chronic fatigue syndrome 02/08/2016 Pure hypercholesterolemia 02/08/2016 Vitamin D deficiency 02/08/2016 documented as of this encounter (statuses as of 06/30/2023) Resolved Problems Problem Noted Date Diagnosed Date Resolved Date Other specified arthritis, left knee 09/21/2021 12/08/2021 Bilateral chronic knee pain 07/05/2021 12/08/2021 Primary osteoarthritis of right hip 02/04/2021 04/13/2022 Nasal lesion 07/20/2018 06/10/2022 Anxiety 08/05/2014 12/08/2021 documented as of this encounter (statuses as of 06/30/2023) Immunizations Name Administration Dates Next Due COVID-19 mRNA, LNP-s, No Pre serve, 2-Dose Series ([employer]) 08/24/2020,08/03/2020 TDAP (age 10 and older)(Boostrix) 07/21/2015 [...] encounter Miscellaneous Notes * Telephone Encounter - Bushra Sidhu RP - 06/30/2023 8:40 PM ESTSigned Prescriptions: Disp Refills Wegovy 2.4 MG/0.75ML Subcutaneous Solution*3 mL 2 Sig: INJECT 2.4 MG UNDER THE SKIN ONCE A WEEK.Authorizing Provider: AMARI QUESADAOrderjennifer User: DEBRA SIDHU documented in this encounter Plan of Treatment Upcoming Encounters Date Type Department Care Team (Late st Contact Info) Description 10/10/2023 10:40 AM EDT Office Visit Family Practice [address] [place] [address] Amari Quesada PA-C [address] [place] [address] Health Maintenance Due Date Last Done Comments [...] this encounter Visit Diagnoses Diagnosis S/P gastric bypass Bariatric surgery status Vitamin B12 deficiency Other B-complex deficiencies Vitamin D deficiency Unspecified vitamin D deficiency Class 1 obesity due to excess calories with serious comorbidity and body mass index (BMI) of 31.0 to 31.9 in adult documented in this encounter Care Teams Social Director Relationship Specialty Start Date End Date Danielle Mccarthy DO PCP - General Family Medicine 07/17/18 documented as of this encounter
--- OUTSIDE RECORDS SUMMARY | 2023-09-27 15:46 | External Medical Summary | Summary of Care ---
Author Name Unknown Organization [facility] Address [address] [place] [address] Phone [phone] Care Team Providers Care Cake Mixer Name Role Phone Danielle Mccarthy DO Primary Care Provider [phone] Reason for Visit * Reason Onset Date Comments Referral 05/16/2023 PT Encounter Details Date Type Department Care Team ([facility] st Contact Info) Description 05/16/2023 Telephone Family Practice [facility] [address] [place], [place] [id number] Danielle Mccarthy DO [address] [place] [address] Referral (PT) Allergies Active Allergy Reactions Criticality Noted Date Comments Ciprofloxacin 04/24/2014 Sulfa Antibiotics Unknown 07/20/2018 Azithromycin Rash 07/20/2018 documented as of this encounter (statuses as of 05/16/2023) Medications Medication Sig Dispensed Refills Start Date End Date Status clobetasol propionate (TEMOVATE) 0.05 % cream Apply topically to affected area 2 times a day. To affected area for up to two weeks. 60 g 3 08/09/2019 Active Nystatin [id number] UNIT/GM External Powder (Nystop)Indications:V ulvar irritation Apply [...] 1,000 mcgIndications:S/P gastric bypass 1000 mcg IM [id number] 03/31/2023 03/01/2024 Active documented as of this encounter (statuses as of 05/16/2023) Active Problems Problem Noted Date Diagnosed Date Fibroids, submucosal 06/10/2022 Overview: Had follow up with COOK DESSERT. 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 Chronic fatigue syndrome 02/08/2016 Pure hypercholesterolemia 02/08/2016 Vitamin D deficiency 02/08/2016 documented as of this encounter (statuses as of 05/16/2023) Resolved Problems Problem Noted Date Diagnosed Date Resolved Date Other specified arthritis, left knee 09/21/2021 12/08/2021 Bilateral chronic knee pain 07/05/2021 12/08/2021 Primary osteoarthritis of right hip 02/04/2021 04/13/2022 Nasal lesion 07/20/2018 06/10/2022 Anxiety 08/05/2014 12/08/2021 documented as of this encounter (statuses as of 05/16/2023) Immunizations Name Administration Dates Next Due COVID-19 mRNA, LNP-s, No Pre serve, 2-Dose Series ([employer]) 08/24/2020,08/03/2020 TDAP (age 10 and older)(Boostrix) 07/21/2015 [...] Telephone Encounter - Agnieszka Falk OSA - 05/16/2023 9:24 AM EST PT referral faxed to [facility] documented in this encounter Plan of Treatment Upcoming Encounters Date Type Department Care Team (Late st Contact Info) Description 10/10/2023 10:40 AM EDT Office Visit Family Practice [address] [place] [address] Amari Quesada PA-C [address] [place] [address] Health Maintenance Due Date Last Done Comments [...] filedocumented as of this encounter Care Teams Cake Mixer Relationship Specialty Start Date End Date Danielle Mccarthy DO PCP - General Family Medicine 07/17/18 documented as of this encounter
--- OUTSIDE RECORDS SUMMARY | 2023-09-27 15:46 | External Medical Summary | Summary of Care ---
Author Name Unknown Organization [facility] Address [address] [place] [address] Phone [phone] Care Team Providers Care Kiln Worker Name Role Phone Danielle Mccarthy DO Primary Care Provider [phone] Reason for Referral * Evaluate & Treat - Unlimited Visits (Within 10 days (routine)) - Pending Review Specialty Diagnoses / Procedures Referred By Contact Referred To Contact GI NUTRITION/IM / Gastroenterology Diagnoses S/P gastric bypass Vitamin D deficiency Danielle Mccarthy DO [address] [place] [address] Referral ID Status Reason Start Date Expiration Date Visits Requested Visits Authorized [id number] Pending Review Specialty Services Required 3 [phone] Question Answer Referral Priority Within 10 days (routine) Where should this appointment be scheduled? [facility] For what condition is the patient being seen? Malnutrition Reason for Visit * Reason Onset Date Comments Referral 04/03/2023 GI nutrition [facility] 04/04 Encounter Details Date Type Department Care Team ([facility] Contact Info) Description 04/03[facility] [address] [place] [address] Danielle Mccarthy DO [address] [place] [address] Referral (GI nutrition lv 04/04) Allergies Active Allergy Reactions Criticality Noted Date Comments Ciprofloxacin 04/24/2014 Sulfa Antibiotics Unknown 07/20/2018 Azithromycin Rash 07/20/2018 documented as of this encounter (statuses as of 04/04/2023) Medications Medication Sig Dispensed Refills Start Date End Date Status clobetasol propionate (TEMOVATE) 0.05 % cream Apply topically to affected area 2 times a day. To affected area for up to two weeks. 60 g 3 08/09/2019 Active Cholecalciferol 125 MCG (5000 UT) Oral Capsule Take 1 Capsule by mouth in the morning. 0 Active Nystatin [id number] UNIT/GM External Powder (Nystop)Indications:Vu lvar irritation Apply [...] 1,000 mcgIndications:S/P gastric bypass 1000 mcg IM [id number] 03/31/2023 03/01/2024 Active documented as of this encounter (statuses as of 04/04/2023) Active Problems Problem Noted Date Diagnosed Date Fibroids, submucosal 06/10/2022 Overview: Had follow up with CONTINUOUS MINING OPERATOR. 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 Chronic fatigue syndrome 02/08/2016 Pure hypercholesterolemia 02/08/2016 Vitamin D deficiency 02/08/2016 documented as of this encounter (statuses as of 04/04/2023) Resolved Problems Problem Noted Date Diagnosed Date Resolved Date Other specified arthritis, left knee 09/21/2021 12/08/2021 Bilateral chronic knee pain 07/05/2021 12/08/2021 Primary osteoarthritis of right hip 02/04/2021 04/13/2022 Nasal lesion 07/20/2018 06/10/2022 Anxiety 08/05/2014 12/08/2021 documented as of this encounter (statuses as of 04/04/2023) Immunizations Name Administration Dates Next Due COVID-19 [...] returns call fwd to nurse line @ [phone]. * Telephone Encounter - Olga Adorno OSA - 04/04/2023 8:17 AM EST Please send encounter to [id number] when pt is aware of GI nutrition [...] 10:40 AM EDT Office Visit Family Practice [place] [facility] [address] [place] [place] [address] Amari Quesada PA-C [address] [place] [place] [address] Scheduled Referrals Name Type Priority Associated Diagnoses [...] or Tdap) 07/20/2025 07/21/2015, 07/21/2015 Diabetes Screening 03/31/2026 03/31/2023, 0 06/03/2022, 06/03/2022, Additional history exists Lipid Panel 03/31/2028 [...] deficiency documented in this encounter Care Teams Kiln Worker Relationship Specialty Start Date End Date Danielle Mccarthy DO [address] [facility] [place] [address] PCP - General Family Medicine 07/17/18 documented as of this encounter
--- OUTSIDE RECORDS SUMMARY | 2023-09-27 15:46 | External Medical Summary | Summary of Care ---
Author Name Unknown Organization [facility] Address [address] [place] [address] Phone [phone] Care Team Providers Care Commercial Lines Account Executive Name Role Phone Danielle Mccarthy DO Primary Care Provider [phone] Encounter Details Date Type Department Care Team ([facility] Contact Info) Description 04/03/2023 Result Scan Unspecified Department <No scans attached> Allergies Active Allergy Reactions Criticality Noted Date [...] mouth in the morning. 0 Active Nystatin [id number] UNIT/GM External Powder (Nystop)Indications:Vu lvar irritation Apply [...] 1,000 mcgIndications:S/P gastric bypass 1000 mcg IM [id number] 03/31/2023 03/01/2024 Active documented as of this encounter (statuses as of 04/05/2023) Active Problems Problem Noted Date Diagnosed Date Fibroids, submucosal 06/10/2022 Overview: Had follow up with SLAT GRADER. Status post bilateral knee replacements 12/09/19 22 [...] mRNA, LNP-s, No Pre serve, 2-Dose Series ([employer]) 08/24/2020,08/03/2020 TDAP (age 10 and older)(Boostrix) 07/21/2015 [...] Office Visit Family Practice [address] [place] [address] Amari Quesada PA-C [address] [place] [address] Health Maintenance Due Date Last Done Comments [...] Procedure Name Priority Date/Time Associated Diagnosis Comments RADIOLOGY SCANNED RESULT 04/03/2023 documented in this encounter Results * RADIOLOGY SCANNED RESULT (04/03/2023) 04/03/2023 No Physician Data Unknown DIAGNOSTIC RAD IOLOGY SERVICES documented in this encounter Care Teams Commercial Lines Account Executive Relationship Specialty Start Date End Date Danielle Mccarthy DO [address] [facility] [place] [address] PCP - General Family Medicine 07/17/18 documented as of this encounter
--- OUTSIDE RECORDS SUMMARY | 2023-09-27 15:46 | External Medical Summary | Summary of Care ---
Author Name Unknown Organization [facility] Address [address] [place] [address] Phone [phone] Care Team Providers Care Clinical Sociologist Name Role Phone aDnielle Mccarthy Primary Care Provider [phone] Reason for Referral * Evaluate & Treat - Unlimited Visits (Within 10 days (routine)) - Pending Review Specialty Diagnoses / Procedures Referred By Cam lakhani Referred To Contact Physical Therapy / Physical Medicine And Rehab Diagnoses Acute bilateral low back pain without sciatica Amari Quesada PA-C [address] [place] [address] Referral ID Status Reason Start Date Expiration Date Visits Requested Visits Authorized [id number] Pending Review Specialty Services Required [phone] Question Answer Referral Priority Within 10 days (routine) Where should this appointment be scheduled? [facility] Reason for Visit * Reason Comments Acute "Wrenched her back" twice recently. She is using a lot of Advil, would like to maybe get a muscle relaxer, as well as a referral for PT. 04/29 and 05/09 Encounter Details Date Type Department Care Team ([facility] Contact Info) Description 05/16/2023 9:00 AM EST Office Visit Family Practice [place] [facility] [address] [place] [address] Amari Quesada PA-C [address] [place] [address] Acute bilateral low back pain without sciatica*; Obesity, Class I, BMI 30.0-34.9 (see actual [...] weeks. 60 g 3 08/09/2019 Active Nystatin [id number] UNIT/GM External Powder (Nystop)Indications:V ulvar irritation Apply [...] 1,000 mcgIndications:S/P gastric bypass 1000 mcg IM [id number] 03/31/2023 03/01/2024 Active documented as of this encounter (statuses as of 05/16/2023) Active Problems Problem Noted Date Diagnosed Date Fibroids, submucosal 06/10/2022 Overview: Had follow up with WARP DOFFER. Status post bilateral knee replacements 12/09/19 22 [...] 15 Q uit: 07/21/2007 Smokeless Tobacco: Never Tobacco Cessation:Counseling Given: No Alcohol Use Standard Drinks/Week Comments No 0 [...] Sign Reading Time Taken Comments Blood Pressure 118/74 05/16/2023 8:50 AM EST Pulse 82 05/16/2023 8:50 AM EST Temperature 36.8 C (98.2 F) 05/16/2023 8:50 AM ES T Respiratory Rate 18 05/16/2023 8:50 AM EST Oxygen Saturation - - Inhaled Oxygen Concentration - - Weight 88.6 kg (195 lb 6.4 oz) 05/16/2023 8:50 A M EST Height 167.6 cm (5' 6") 05/16/2023 8:50 AM EST Body Mass Index 31.54 05/16/2023 8:50 AM EST documented in this encounter Progress Notes * Amari Quesada PA-C - 05/16/2023 9:10 AM EST Images from the original note were not included. History of Present Illness Jimi Foster is a 62 year old female that presents for acute visit. Pt states that she "wrenched her back" twice recently. Started acutely on 04/29/23. States she bent down to pull pants up and felt an abrupt sharp pain in bilateral lower lumbar region. Rated 7/10. She rested the next 3 hours. Has been using advil frequently with relief. She later reinjured back again on 05/09/23 when she bent down to steel pickler a rug, and again felt similar pain, this time on the RIGHT. Denies LE weakness, saddle anesthesia, bowel/bladder incontinence/retention. Denies previous hxof back problems. She does have hx of both hip/knee replacements. Using heating pad with relief. Requesting muscle relaxer and PT referral. States she thinks she's been 400-600mg of advil about 3 times/day. She declines steroids. Patient Active Problem List Diagnosis Code Chronic [...] Current Outpatient Medications Medication Sig Dispense Refill clobetasol propionate (TEMOVATE) 0.05 % cream Apply topically to affected area 2 times a day. To affected area for up to two weeks. 60 g 3 Nystatin [id number] UNIT/GM External Powder (Nystop) Apply topically to affected area 3 times a day. Apply to affected area three times a day for 7 days 15 g 0 Wegovy 2.4 MG/0.75ML Subcutaneous Solution Auto-injector (Semaglutide-Weight Management) Inject 2.4mg under the skin once a week. 3 mL 2 Cyclobenzaprine HCl 10 MG Oral Tablet (Flexeril) Take 1 Tablet by mouth at bedtime as needed for Muscle spasms. 30 Tablet 2 Current Facility-Administered Medications Medication Dose Route Frequency Provider Last Rate Last Admin vitamin b-12 (Cyanocobalamin) inj 1,000 mcg 1,000 mcg Intramuscular Q4 Weeks Amari Quesada PA-C 1,000 mcg at 05/04/23 0903 Past Medical History: Diagnosis Date Lymphedema Past Surgical History: Procedure Laterality Date GASTRIC BAND PLACEMENT/PORT, LAPAROSCOPIC 2002 GASTRIC BAND REMOVAL ONLY, LAPAROSCOPIC 2007? GASTRIC BYPASS FOR OBESITY 2004 KNEE ARTHROSCOPY/SURGERY Right 07/15/2021 KNEE ARTHROSCOPY/SURGERY Left 09/23/2021 MISCELLANEOUS ORDER ([facility] ONLY) multiple cosmetic surgeries s/p gastric bypass MISCELLANEOUS ORDER ([facility] ONLY) bowel surgery REDUCTION OF BREAST 2004 [...] Marital status: Tobacco Use Smoking status: Former Packs/day: 1.00 Years: 15.00 Additional pack years: 0.00 Total pack years: 15.00 Types: Cigarettes Quit date: 07/21/2007 Years since quittin.8 Smokeless tobacco: Never Substance and Sexual Activity Alcohol use: No Drug use: No Sexual activity: Yes Partners: Male Social Determinants of Health Food Insecurity: Unknown (04/10/2022) Hunger Vital Sign Worried About Running Out of Food in the Last Year: Patient refused Ran Out of Food in the Last Year: Patient refused Review of Systems Constitutional: Negative. Negative for chills and fever. Respiratory: Positive for shortness of breath. Cardiovascular: Negative. Negative for chest pain. Genitourinary: Negative. Musculoskeletal: Positive for arthralgias and myalgias. Skin: Negative. Negative for rash. Neurological: Negative. Negative for numbness. Psychiatric/Behavioral: Negative. All other systems reviewed and are negative. Physical Exam BP 118/74 | Pulse 82 | Temp 36.8 C (98.2 F) (Temporal Artery) | Resp 18 | Ht 1.676 m (5' 6") | Wt 88.6 kg (195 lb 6.4 oz) | BMI 31.54 kg/m | BSA 2.03 m Physical Exam Vitals and nursing note reviewed. Constitutional: Appearance: Normal appearance. She is obese. Cardiovascular: Rate and Rhythm: Normal rate and regular rhythm. Pulses: Normal pulses. Heart sounds: Normal heart sounds. No murmur heard. Pulmonary: Effort: Pulmonary effort is normal. Breath sounds: Normal breath sounds. No wheezing, rhonchi or rales. Musculoskeletal: General: Normal range of motion. Comments: Lower lumbosacral spine normal to inspection; moderate tenderness to palpation of lumbosacral paraspinal muscles bilat; straight leg raise negative bilat; full range of motion and +5/5 strength of hips, knees, ankles bilat Neurological: General: No focal deficit present. Mental Status: She is alert and oriented to person, place, and time. Deep Tendon Reflexes: Reflexes normal. Psychiatric: Mood and Affect: Mood normal. Behavior: Behavior normal. Thought Content: Thought content normal. Judgment: Judgment normal. I have reviewed most recent labs BMP results Recent Labs Units 04/03/23 0000 03/31/23 0952 06/03/22 0748 06/28/21 0824 SODIUM - [facility] mmol/L -- 140 140 143 POTASSIUM - [facility] mmol/L -- 4.8 4.6 4.5 POTASSIUM-OUTSIDE LAB MMOL/L 4.1 -- -- -- CHLORIDE - [facility] mmol/L -- 103 104 107 CO2 - [facility] mmol/L -- 27 27 24 CREATININE - [facility] mg/dL -- 0.7 0.7 0.8 CREATININE-OUTSIDE LAB MG/DL 0.80 -- -- -- BUN - [facility] mg/dL -- 16 11 12 CBC results Recent Labs Units 04/03/23 0000 03/31/23 0952 01/03/23 0000 06/03/22 0748 WBC AUTO - [facility] K/uL -- 5.24 -- 6.08 HGB - [facility] g/dL -- 12.7 -- 11.8* HEMOGLOBIN-OUTSIDE LAB GM/DL 12.7 -- 12.2 -- HCT - [facility] % -- 43.1 -- 40.0 PLATELET AUTO - [facility] K/uL -- 267 -- 295 Assessment and Plan Acute bilateral low back pain without sciatica Patient declines steroids. She will continue Advil. Aware of the maximum dose of 800 mg 3 times a day. Will otherwise add cyclobenzaprine p.r.n. specifically for nighttime use. She has taken this in the past and is aware of side effect of fatigue. Will otherwise refer to PT and update x-rays. - PHYSICAL THERAPY REFERRAL OP - Cyclobenzaprine HCl 10 MG Oral Tablet (Flexeril); Take 1 Tablet by mouth at bedtime as needed forMuscle spasms. - XR L SPINE AP AND LATERAL Obesity, Class I, BMI 30.0-34.9 (see actual BMI) Wrap-Up Follow Up: Return if symptoms worsen or fail to improve, for as scheduled. | For: as scheduled Time: I spent a total of 10-19 minutes (exact time 16 mins) on the date of service in preparation, delivery, and documentation of the care provided to Jimi Foster excluding any time spent in the performance of separately billed services. documented in this encounter Nursing Notes * Gertrude Ferguson LPN - 05/16/2023 8:49 AM EST Chief Complaint Patient presents with Acute "Wrenched her back" twice recently. She is using a lot of Advil, would like to maybe get a muscle relaxer, as well as a referral for PT. 04/29 and 05/09 documented in this encounter Miscellaneous Notes * Pt Handout (on AVS) - Amari Quesada PA-C - 05/16/2023 9:19 AM EST Images from the original note were not included. [id number] Degenerative Disk Disease Spinal disks are gel-filled cushions between the bones, or vertebrae, of the spine. The disks act like shock absorbers. Over time, the disks may break down. This is called degenerative disk disease. This condition can affect the neck or back. It is one of the most common causes of low back pain. The pain often remains localized to the lower back or neck. Muscle spasm is often present and adds tothe pain. Disk degeneration is a natural part of aging. But it is not always painful. It may also occur as a result of repeated minor injuries from daily activities, sports, or accidents. It may also run in families. It may lead to osteoarthritis of the spine. Back pain related to disk disease may come and go. Or it may become chronic and last for months or years. The disk may bulge or rupture. This is called a slipped disk or herniated disk. That can put pressure on a nearby spinal nerve and cause neck or back pain that spreads down one arm or leg. X-rays, CT scan, or an MRI scan may help to diagnose this condition. For acute pain, treatment includes anti-inflammatory medicines, muscle relaxants, rest, ice, or heat. Strong prescription pain medicines, called opioids, may be needed for short-term treatment if pain suddenly gets worse. Opioid medicines can be addictive. So they are not advised for long-term pain management. Non-addictive types of medicines are preferred. Surgery is generally not used to treat this condition unless there is a complication. Home care For neck pain: Use a comfortable pillow that supports the head and keeps the spine in a neutral position. Your head should not be tilted forward or backward. For back pain: Don't sit for long periods of time. This puts more stress on the lower back than standing or walking. Starting a regular exercise program to strengthen the supporting muscles of thespine will make it easier to live with degenerative disk disease. Apply an ice pack over the injured area for no more than 15 to 20 minutes. Do this every 3 to 6 hours for the first 24 to 48 hours. To make an ice pack, put ice cubes in a plastic bag that seals at the top. Wrap the bag in a clean, thin towel or cloth. Never put ice or an ice pack directly on the skin. Keep using ice packs to ease pain and swelling as needed. After 48 hours, apply heat (warm shower or warm bath) for 20 minutes several times a day, or switch between ice and heat. You may use [id number] pain medicine to control pain unless another pain medicine was prescribed. If you have chronic liver or kidney disease or have ever had a stomach ulcer or GI bleeding,talk with your provider before using these medicines. Follow-up care Follow up with your healthcare provider as directed. If X-rays, a CT scan, or an MRI scan were done, you will be notified of any new findings that may affect your care. When to seek medical advice Contact your healthcare provider right away if any of these occur: Increasing back or neck pain Your foot drags when you walk, a condition called foot drop You have new weakness, numbness, or pain in one or both arms or legs Loss of bowel or bladder control Numbness or tingling in the buttock or groin area Last Reviewed Date: 03/22/[id number] [employer]. All rights reserved. This information is not intended as a substitute for professional medical care. Always follow your healthcare professional's instructions. documented in this encounter Plan of Treatment Upcoming Encounters Date Type Department Care Team ([facility] Contact Info) Description 10/10/2023 10:40 AM EDT Office Visit Family [facility] [address] [place] [address] Amari Quesada PA-C [address] [facility] [place] [address] Scheduled Orders Name Type Priority Associated Diagnoses Orde r Schedule XR L SPINE AP AND LATERAL Medical Imaging Routine Acute bilateral low back pain without sciatica Ordered: 05/16/2023 Scheduled Referrals Name Type Priority Associated Diagnoses Orde r Schedule PHYSICAL THERAPY REFERRAL OP Referral Within 10 days (routine) Acute bilateral low back pain without sciatica Ordered: 05/16/2023 Health Maintenance Due Date Last Done Comments [...] as of this encounter Visit Diagnoses Diagnosis Acute bilateral low back pain without sciatica- Primary Obesity, Class I, BMI 30.0-34.9 (see actual BMI) Obesity, unspecified documented in this encounter Care Teams Clinical Sociologist Relationship Specialty Start Date End Date Danielle Mccarthy DO PCP - General Family Medicine 07/17/18 documented as of this encounter
--- OUTSIDE RECORDS SUMMARY | 2023-09-27 15:46 | External Medical Summary | Summary of Care ---
Author Name Unknown Organization [facility] Address [address] [place] [address] Phone [phone] Care Team Providers Care Management Tech Name Role Phone Danielle Mccarthy DO Primary Care Provider Un available Reason for Visit * Reason Onset Date Comments Emergency Department Follow-Up 04/04/2023 1 06/07 LMOM/ER followup Encounter Details Date Type Department Care Team ([facility] st Contact Info) Description 04/04/2023 Telephone [facility] [address] [place] [address] Danielle Mccarthy DO Emergency Department Follow-Up (04/07 [...] weeks. 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 Status post bilateral knee replacements 12/09/19 Obesity, [...] When was patient seen: 04/02 Which ED: [facility] What were they seen for: constipation [...] Office Visit Family Practice [address] [place] [address] Amari Quesada PA-C [address] [place] [address] Health Maintenance Due Date Last Done Comments [...] filedocumented as of this encounter Care Teams Management Tech Relationship Specialty Start Date End Date Danielle Mccarthy DO PCP - General Family Medicine 07/17/18 documented as of this encounter
--- OUTSIDE RECORDS SUMMARY | 2023-09-27 15:47 | External Medical Summary | Summary of Care ---
Author Name Unknown Organization [facility] Address [address] [place] [address] Phone [phone] Care Team Providers Care Sales Exec Name Role Phone Danielle Mccarthy DO Primary Care Provider [phone] Reason for Referral * Evaluate & Treat - Unlimited Visits (Within 10 days (routine)) - Pending Review Specialty Diagnoses / Procedures Referred By Contact Referred To Contact GI NUTRITION/IM / Gastroenterology Diagnoses S/P gastric bypass Vitamin D deficiency Danielle Mccarthy DO [address] [place] [address] Referral ID Status Reason Start Date Expiration Date Visits Requested Visits Authorized [id number] Pending Review Specialty Services Required 3 [phone] Question Answer Referral Priority Within 10 days (routine) Where should this appointment be scheduled? [facility] For what condition is the patient being seen? Malnutrition Reason for Visit * Reason Onset Date Comments Referral 04/03/2023 GI nutrition Encounter Details Date Type Department Care Team ([facility] Contact Info) Description 04/03/2023 Telephone Family Practice [place] [facility] [address] [facility] [place] [address] Danielle Mccarthy DO [address] [place] [address] Referral (GI nutrition) Allergies Active Allergy Reactions Criticality Noted Date [...] mouth in the morning. 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 Status post bilateral knee replacements 12/09/19 [...] encounter Miscellaneous Notes * Telephone Encounter - Olga Adorno, DARREL - 04/04/2023 8:17 AM EST Please send encounter to [id number] when pt is aware of GI nutrition [...] 10:40 AM EDT Office [facility] [address] [place] [address] Amari Quesada PA-C [address] [place] [address] Scheduled Referrals Name Type Priority Associated Diagnoses [...] deficiency documented in this encounter Care Teams Sales Exec Relationship Specialty Start Date End Date Danielle Mccarthy DO [address] [facility] [place] [address] PCP - General Family Medicine 07/17/18 documented as of this encounter
--- OUTSIDE RECORDS SUMMARY | 2023-09-27 15:47 | External Medical Summary | Summary of Care ---
Author Name Unknown Organization [facility] Address [address] [place] [address] Phone [phone] Care Team Providers Care Poultry Husbandman Name Role Phone Danielle Mccarthy DO Primary Care Provider [phone] Reason for Referral * Evaluate & Treat - Unlimited Visits (Within 10 days (routine)) - Pending Review Specialty Diagnoses / Procedures Referred By Contact Referred To Contact GI NUTRITION/IM / Gastroenterology Diagnoses S/P gastric bypass Vitamin D deficiency Danielle Mccarthy DO [address] [place] [address] Referral ID Status Reason Start Date Expiration Date Visits Requested Visits Authorized [id number] Pending Review Specialty Services Required 3 [phone] Question Answer Referral Priority Within 10 days (routine) Where should this appointment be scheduled? [facility] For what condition is the patient being seen? Malnutrition Encounter Details Date Type Department Care Team ([facility] Contact Info) Description [facility]03[facility] [address] [place] [address] Danielle Mccarthy DO [address] [place] [address] Allergies Active Allergy Reactions Criticality Noted Date Comments Ciprofloxacin 04/24/2014 Sulfa Antibiotics Unknown 07/20/2018 Azithromycin Rash 07/20/2018 documented as of this encounter (statuses as of 04/03/2023) Medications Medication Sig Dispensed Refills Start Date End Date Status clobetasol propionate (TEMOVATE) 0.05 % cream Apply topically to affected area 2 times a day. To affected area for up to two weeks. 60 g 3 08/09/2019 Active Cholecalciferol 125 MCG (5000 UT) Oral Capsule Take 1 Capsule by mouth in the morning. 0 Active Nystatin 316397 UNIT/GM External Powder (Nystop)Indications:Vu lvar irritation Apply [...] 1,000 mcgIndications:S/P gastric bypass 1000 mcg IM [id number] 03/31/2023 03/01/2024 Active documented as of this encounter (statuses as of 04/03/2023) Active Problems Problem Noted Date Diagnosed Date Fibroids, submucosal 06/10/2022 Overview: Had follow up with D[employer] CARTOGRAPHIC TECHNICIAN. 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 Chronic fatigue syndrome 02/08/2016 Pure hypercholesterolemia 02/08/2016 Vitamin D deficiency 02/08/2016 documented as of this encounter (statuses as of 04/03/2023) Resolved Problems Problem Noted Date Diagnosed Date Resolved Date Other specified arthritis, left knee 09/21/2021 12/08/2021 Bilateral chronic knee pain 07/05/2021 12/08/2021 Primary osteoarthritis of right hip 02/04/2021 04/13/2022 Nasal lesion 07/20/2018 06/10/2022 Anxiety 08/05/2014 12/08/2021 documented as of this encounter (statuses as of 04/03/2023) Immunizations Name Administration Dates Next Due COVID-19 [...] encounter Miscellaneous Notes * Telephone Encounter - Danielle Mccarthy DO [...] Description 10/10/2023 10:40 AM EDT Office Visit [facility] Sheeba Issa [address] [place] [address] Amari Quesada PA-C [address] [place] [address] Scheduled Referrals Name Type Priority Associated Diagnoses [...] deficiency documented in this encounter Care Teams Poultry Husbandman Relationship Specialty Start Date End Date Danielle Mccarthy DO [address] [facility] [place] [address] PCP - General Family Medicine 07/17/18 documented as of this encounter
--- OUTSIDE RECORDS SUMMARY | 2023-09-27 15:47 | External Medical Summary | Summary of Care ---
Author Name Unknown Organization [facility] Address [address] [place] [address] Phone [phone] Care Team Providers Care Etl Application Developer Name Role Phone Danielle Mccarthy [place] Primary Care Provider [phone] Reason for Visit * Reason Comments Routine Exam No new concerns Encounter Details Date Type Department Care Team ([facility] st Contact Info) Description 03/31/2023 9:00 AM EST Office Visit Family [facility] [place] [address] [place] [address] Amari Quesada PA-C [address] [place] [address] S/P gastric bypass*; Vitamin B12 deficiency; Vitamin D deficiency; Hyperlipidemia with target LDL less than 130; Encounter for screening mammogram for malignant neoplasm of breast; Class 1 obesity due to excess calories [...] mouth in the morning. 0 Active Nystatin [id number] UNIT/GM External Powder (Nystop)Indicatio ns:Vulvar irritation Apply topically to affected area 3 times a day. Apply to affected area three times a day for 7 days 15 g 0 03/13/2023 Active Wegovy 2.4 MG/0.75ML Subcutaneous Solution Auto-injector (Semaglutide-Weig ht Management)Indica tions:S/P gastric bypass,Vitamin B12 deficiency,Vitami n D deficiency,Class 1 obesity due to excess calories with serious comorbidity and body mass index (BMI) of 31.0 to 31.9 in adult Inject 2.4 mg under the skin once a week. 3 mL 2 03/31/2023 Active Vitamin B 12 500 MCG Oral TabletIndications :Vitamin B12 deficiency Take by mouth 1 Tablet daily . 0 3 Discontinued(Camelia ent preference/discon tinuation) Wegovy 1 MG/0.5ML Subcutaneous Solution Auto-injector (Semaglutide-Weig ht Management)Indica tions:S/P gastric bypass,Obesity, Class I, BMI 30.0-34.9 (see actual BMI) Inject 1 mg under the skin once a week. 0.5 mL 12 01/11/2023 3 Discontinued(Camelia ent preference/discon tinuation) Wegovy 1.7 MG/0.75ML Subcutaneous Solution Auto-injector (Semaglutide-Weig ht Management) Inject 1.7 mg under the skin once a week. 0.75 mL 3 03/14/2023 3 Discontinued Hospital, Clinic, or Other Facility Administered Medication Ordered Dose Route Frequency Start Date End Date Status vitamin b-12 (Cyanocobalamin) inj 1,000 mcgIndications:S/P gastric bypass 1000 mcg IM [id number] 03/31/2023 03/01/2024 Active documented as of this encounter (statuses as of 04/03/2023) Active Problems Problem Noted Date Diagnosed Date Fibroids, submucosal 06/10/2022 Overview: Had follow up with [facility] [facility]PRESENTATIVE. Status post bilateral knee replacements 12/09/19 [...] Sign Reading Time Taken Comments Blood Pressure 116/64 03/31/2023 8:58 AM EST Pulse 68 03/31/2023 8:58 AM EST Temperature 36.8 C (98.2 F) 03/31/2023 8:58 AM ES T Respiratory Rate 18 03/31/2023 8:58 AM EST Oxygen Saturation - - Inhaled Oxygen Concentration - - Weight 89.1 kg (196 lb 6.4 oz) 03/31/2023 8:58 A M EST Height 167.6 cm (5' 6") 03/31/2023 8:58 AM EST Body Mass Index 31.7 03/31/2023 8:58 AM EST documented in this encounter Progress Notes * Sunni Ramírez LPN - 03/31/2023 9:39 AM EST Pre-Administration Time Out Procedure Performed: Yes Patient Identified (Ask Name/Date of ): Yes Does the patient have a fever greater than 101 degrees today? No Patient allergic to latex? No Has the patient ever fainted after receiving an injection? No VFC Stock: No Immunization(s) verified: Yes, Immunization Name: b12, VIS Sheet(s) given: Yes Verified Side and Site: Yes Verified Shot(s) with Parent(s)/Patient: Yes * Amari Quesada PA-C - 03/31/2023 9:12 AM EST Images from the original note were not included. History of Present Illness Jimi Foster is a 62 year old female that presents for routine visit. Denies any acute complaints today. She is due for lab work. History of gastric bypass, still working hard on diet. Taking wegovy, last increased it about 3 weeks ago. Will increase dose. Due for B12 shot today. Most recent CBC from 12/2022 stable. Continues to follow with ortho regularly due to generalized arthritis with history of bilateral knee/hip replacements. States sx's have been generally stable. Actually stopped coffee 1 month ago, andstates this as greatly helped her sx's. Follows regularly with gynecology, last visit 12/2022. She is due for mammogram but adamantly declines. Aware of risks. Colonoscopy 08/2020 showed patent ileocolonic anastomosis, healthy-appearing mucosa. Hx of emergentcolon surgery > 10 years ago (colon attached to adhesion requiring immediate surgery). Declines all vaccines. Patient Active Problem List Diagnosis Code Chronic [...] Current Outpatient Medications Medication Sig Dispense Refill Cholecalciferol 125 MCG (5000 UT) Oral Capsule Take 1 Capsule by mouth in the morning. Wegovy 2.4 MG/0.75ML Subcutaneous Solution Auto-injector (Semaglutide-Weight Management) Inject 2.4mg under the skin once a week. 3 mL 2 clobetasol propionate (TEMOVATE) 0.05 % cream Apply topically to affected area 2 times a day. To affected area for up to two weeks. 60 g 3 Nystatin [id number] UNIT/GM External Powder (Nystop) Apply topically to affected area 3 times a day. Apply to affected area three times a day for 7 days 15 g 0 Current Facility-Administered Medications Medication Dose Route Frequency Provider Last Rate Last Admin vitamin b-12 (Cyanocobalamin) inj 1,000 mcg 1,000 mcg Intramuscular Q4 Weeks Amari Quesada PA-C 1,000 mcg at 03/31/23 0938 Past Medical History: Diagnosis Date Lymphedema Past Surgical History: Procedure Laterality Date GASTRIC BAND PLACEMENT/PORT, LAPAROSCOPIC 2002 GASTRIC BAND REMOVAL ONLY, LAPAROSCOPIC 2007? GASTRIC BYPASS FOR OBESITY 2003 KNEE ARTHROSCOPY/SURGERY Right 07/15/2021 KNEE ARTHROSCOPY/SURGERY Left 09/23/2021 MISCELLANEOUS ORDER ([facility] ONLY) multiple cosmetic surgeries s/p gastric bypass MISCELLANEOUS ORDER ([facility] ONLY) bowel surgery REDUCTION OF BREAST [...] Types: Cigarettes Quit date: 07/21/2007 Years since quittin.7 Smokeless tobacco: Never Substance and Sexual Activity Alcohol use: No Drug use: No Sexual activity: Yes Partners: Male Social Determinants of Health Food Insecurity: Unknown (04/10/2022) Hunger Vital Sign Worried About Running Out of Food in the Last Year: Patient refused Ran Out of Food in the Last Year: Patient refused Review of Systems Constitutional: Negative. HENT: Negative. Eyes: Negative. Respiratory: Negative. Negative for shortness of breath. Cardiovascular: Negative. Negative for chest pain, palpitations and leg swelling. Gastrointestinal: Positive for diarrhea. Negative for abdominal pain, blood in stool, constipation,nausea and vomiting. Endocrine: Negative. Genitourinary: Negative. Musculoskeletal: Positive for arthralgias, gait problem and myalgias. Skin: Negative. Allergic/Immunologic: Negative. Neurological: Negative for dizziness. Hematological: Negative. Psychiatric/Behavioral: Negative. All other systems reviewed and are negative. Physical Exam BP 116/64 | Pulse 68 | Temp 36.8 C (98.2 F) | Resp 18 | Ht 1.676 m (5' 6") | Wt 89.1 kg (196 lb6.4 oz) | BMI 31.70 kg/m | BSA 2.04 m Physical Exam Vitals and nursing note [...] No edema. Skin: General: Skin is warm. Neurological: General: No focal deficit present. Mental Status: She is alert and oriented to person, place, and time. Psychiatric: Mood and Affect: Mood normal. Behavior: Behavior normal. Thought Content: Thought content normal. Judgment: Judgment normal. I have reviewed most recent labs BMP results Recent Labs Units 03/31/23 0952 06/03/22 0748 06/28/21 0824 SODIUM - [facility] mmol/L 140 140 143 POTASSIUM - [facility] mmol/L 4.8 4.6 4.5 CHLORIDE - [facility] mmol/L 103 104 107 CO2 - [facility] mmol/L 27 27 24 CREATININE - [facility] mg/dL 0.7 0.7 0.8 BUN - [facility] mg/dL 16 11 12 Lipid panel results Recent Labs Units 03/31/23 0952 06/03/22 0748 06/28/21 0824 CHOLESTEROL - [facility] mg/dL 192 164 160 LDL CHOLESTEROL (CALCULATED) - [facility] mg/dL 91 90 86 HDL CHOLESTEROL - [facility] mg/dL 86 64 57 TRIGLYCERIDES - [facility] mg/dL 76 51 83 CBC results Recent Labs Units 03/31/23 0952 01/03/23 0000 06/03/22 0748 WBC AUTO - [facility] K/uL 5.24 -- 6.08 HGB - [facility] g/dL 12.7 -- 11.8* HEMOGLOBIN-OUTSIDE LAB GM/DL -- 12.2 -- HCT - [facility] % 43.1 -- 40.0 PLATELET AUTO - [facility] K/uL 267 -- 295 HbA1c results Recent Labs Units 06/03/22 0748 HEMOGLOBIN A1C - [facility] % 5.2 TSH results Recent Labs Units 03/31/23 0952 06/03/22 0748 06/28/21 0824 TSH - [facility] uIU/mL 1.64 2.82 2.19 Vitamin D results Recent Labs Units 03/31/23 0952 06/03/22 0748 06/28/21 0824 25-HYDROXY VITAMIN D - [facility] ng/mL 18* 13* 16* Hepatic panel results Recent Labs Units 03/31/23 0952 06/03/22 0748 06/28/21 0824 PROTEIN - [facility] g/dL 7.1 6.7 7.0 BILIRUBIN, TOTAL - [facility] mg/dL 0.4 0.4 0.3 ALKALINE PHOSPHATASE - [facility] U/L 74 72 72 AST - [facility] U/L 19 12 19 ALT - [facility] U/L 13 7* 14 Protein/cr ratio results No results for input(s): "PROCRRATIO" in the last 31112 hours. Assessment and Plan S/P gastric bypass Working hard on diet and exercise. Check vitamins. - TSH WITH FREE T4 IF INDICATED; Future - LIPID PANEL WITH DIRECT LDL IF TG IS HIGH; Future - COMPREHENSIVE METABOLIC PANEL; Future - VITAMIN B12; Future - FOLIC ACID; Future - 25-HYDROXY VITAMIN D; Future - Wegovy 2.4 MG/0.75ML Subcutaneous Solution Auto-injector (Semaglutide-Weight Management); Inject 2.4 mg under the skin once a week. Vitamin B12 deficiency - TSH WITH FREE T4 IF INDICATED; Future - LIPID PANEL WITH DIRECT LDL IF TG IS HIGH; Future - COMPREHENSIVE METABOLIC PANEL; Future - VITAMIN B12; Future - FOLIC ACID; Future - 25-HYDROXY VITAMIN D; Future - Wegovy 2.4 MG/0.75ML Subcutaneous Solution Auto-injector (Semaglutide-Weight Management); Inject 2.4 mg under the skin once a week. Vitamin D deficiency - TSH WITH FREE T4 IF INDICATED; Future - LIPID PANEL WITH DIRECT LDL IF TG IS HIGH; Future - COMPREHENSIVE METABOLIC PANEL; Future - VITAMIN B12; Future - FOLIC ACID; Future - 25-HYDROXY VITAMIN D; Future - Wegovy 2.4 MG/0.75ML Subcutaneous Solution Auto-injector (Semaglutide-Weight Management); Inject 2.4 mg under the skin once a week. Hyperlipidemia with target LDL less than 130 - TSH WITH FREE T4 IF INDICATED; Future - LIPID PANEL WITH DIRECT LDL IF TG IS HIGH; Future - COMPREHENSIVE METABOLIC PANEL; Future - VITAMIN B12; Future - FOLIC ACID; Future - 25-HYDROXY VITAMIN D; Future Encounter for screening mammogram for malignant neoplasm of breast She declines mammograms. Aware of risks. Class 1 obesity due to excess calories with serious comorbidity and body mass index (BMI) of 31.0 to 31.9 in adult Increase Wegovy. - Wegovy 2.4 MG/0.75ML Subcutaneous Solution Auto-injector (Semaglutide-Weight Management); Inject 2.4 mg under the skin once a week. Wrap-Up Follow Up: Return in about 6 months (around 09/29/2023), or if symptoms worsen or fail to improve, for Return with AP. | For: Return with AP Time: I spent a total of 20-29 minutes (exact time 22 mins) on the date of service in preparation, delivery, and documentation of the care provided to Jimi Foster excluding any time spent in the performance of separately billed services. documented in this encounter Miscellaneous Notes * Pt Handout (on AVS) - Amari Quesada PA-C - 03/31/2023 9:18 AM EST Images from the original note were not included. Breast Cancer Screening - Video To view the video go to this web address: [email or web address]://[email or web address] Or, scan this QR code with your smart phone Cigital. documented in this encounter Plan of Treatment Upcoming Encounters Date Type Department Care Team (Late st Contact Info) Description 10/10/2023 10:40 AM EDT Office Visit [facility] [place], [place] [address] [place] [address] Amari Quesada PA-C [address] [place] [address] Health Maintenance Due Date Last Done Comments [...] Not on filedocumented as of this encounter Results * FOLIC ACID (03/31/2023 9:52 AM EST) Folic Acid 16.2 >4.5 ng/mL 04/01/2023 2:31 AM EST [facility] [place] Venous blood specimen / Unknown Venipuncture / Unknown 03/31/2023 9:52 AM EST 03/31/2023 9:52 AM EST Amari Quesada PA-C LAB BLOOD ORD ERABLES [facility] [address] [place] [address] * (ABNORMAL) VITAMIN B12 (03/31/2023 9:52 AM EST) Vitamin B12 >2,000(H) 232 - 1,245 pg/mL 04/01/2023 2:31 AM EST [facility] [place] Venous blood specimen / Unknown Venipuncture / Unknown 03/31/2023 9:52 AM EST 03/31/2023 9:52 AM EST Amari Quesada PA-C LAB BLOOD ORD ERABLES [facility] [address] [place] [address] * LIPID PANEL WITH DIRECT LDL IF TG IS HIGH (03/31/2023 9:52 AM EST) Pathologist [facility] Triglycerides 76 <=174 mg/dL 04/01/2023 12:51 AM EST [facility] Comment: Triglyceride Reference Ranges (mg/dL): <150 Acceptable 150-174 Borderline high 175-499 High >=500 Very high Cholesterol 192 <200 mg/dL 04/01/2023 12:51 AM EST [facility] Comment: Total Cholesterol Reference Ranges (mg/dL): <200 Desirable 200-239 Borderline high >=240 High HDL Cholesterol 86 >49 mg/dL 12:51 AM EST [facility] Comment: HDL Cholesterol Reference Ranges (mg/dL): >=60 High (Desirable) <50 Low (Undesirable) For Females <40 Low (Undesirable) For Males Non-HDL Cholesterol 106 <=159 mg/dL 04/01/2023 12:51 AM EST [facility] Comment: Non-HDL Cholesterol Reference Range (mg/dL): <100 Target level for high risk ASCVD patient <130 Optimal for general population 130-159 Near optimal for general population 160-189 Borderline High 190-219 High >=220 Very High LDL Cholesterol 91 <=129 mg/dL 04/01/2023 12:51 AM EST [facility] Comment: LDL Cholesterol Reference Ranges (mg/dL): <70 Target level for high risk ASCVD patient <100 Optimal for general population 100-129 Near optimal for general population 130-159 Borderline high 160-189 High >=190 Very high Blood Venous blood specimen / Unknown Venipuncture / Unknown 03/31/2023 9:52 AM EST 03/31/2023 9:52 AM EST Amari Quesada PA-C LAB BLOOD ORD ERABLES [facility] [address] [place] [address] * TSH WITH FREE T4 IF INDICATED (03/31/2023 9:52 AM EST) TSH 1.64 0.27 - 4.20 uIU/mL 04/01/2023 2:31 AM EST [facility] Blood Venous blood specimen / Unknown Venipuncture / Unknown 03/31/2023 9:52 AM EST 03/31/2023 9:52 AM EST Amari Quesada PA-C LAB BLOOD ORD ERACAMRYN [facility] [address] [place] [address] documented in this encounter Visit Diagnoses Diagnosis S/P gastric bypass- Primary Bariatric surgery status Vitamin B12 deficiency Other B-complex deficiencies Vitamin D deficiency Unspecified vitamin D deficiency Hyperlipidemia with target LDL less than 130 Other and unspecified hyperlipidemia Encounter for screening mammogram for malignant neoplasm of breast Other screening mammogram Class 1 obesity due to excess calories with serious comorbidity and body mass index (BMI) of 31.0 to 31.9 in adult documented in this encounter Administered Medications Active Administered Medications - up to 3 most recent administrations Medication Order MAR Action Action Date Dose Rate Site vitamin b-12 (Cyanocobalamin) inj 1,000 mcg 1,000 mcg, Intramuscular, [id number], First dose on Mon03/31/23 at 1000, Last dose on Mon02/02/24 at 1000, For 12 doses Given 03/31/2023 9:38 AM EST 1,000 mcg Deltoid Left Upper documented in this encounter Care Teams Etl Application Developer Relationship Specialty Start Date End Date Danielle Mccarthy DO [address] [facility] [place] [address] PCP - General Family Medicine 07/17/18 documented as of this encounter
--- NOTE | 2023-09-27 16:31 | Hospitalist Progress Note ---
Date of Service September 27, 2023 Assessment & Plan (1) Transient confusion: Plan: Jimi Foster is a 62y/o F with PMHx of hypercholesterolemia, vitamin D deficiency/vitamin B12 deficiency s/p gastric bypass, intestinal postoperative nonabsorption syndrome, iron deficiency anemia, chronic fatigue syndrome, degenerative disc disease, bilateral hip/knee replacements, medical marijuana use and lymphedema who presented to the ED this morning for evaluation of new-onset confusion. Neck CTA showed no occlusion, stenosis or dissection in the major cervical arteries. Head CTA showed no large vessel occlusion and no intracranial hemorrhage. Head CT was benign, and chest x-ray displayed no acute process. MRI brain does not show any acute stroke. No intracranial lesions LDL- 67 mg/dl. HbA1c- 5.1% Discussed with neurology; recommended to obtain EEG, seizure precautions and telemetry monitoring. Also recommends no driving per [facility] law. PT/OT eval (2) Right leg pain: Plan: -Right lower extremity venous doppler displayed no evidence of DVT. -Topical Voltaren, Tylenol for mild/moderate pain -Oxycodone for severe pain -Vitamin b12 wnl (3) S/P gastric bypass: Plan: -Remote hx of gastric bypass, recently received iron infusions with stable Hgb -B12 level pending for AM as above -On Wegovy for weight maintenance, hold while admitted DVT Prophylaxis: Heparin Code Status: Full Code PCP: Amari Quesada PA-C Dispo: Observation in PCU/Telemetry Please note the above document was generated using voice recognition software. It may contain grammatical, syntax or spelling errors. Any formal questions or concerns about the content, text or information contained within the body of this dictation should be directly addressed to the provider for clarification Admission and Anticipated Discharge Date Admission Date: September 26, 2023 Subjective Patient seen and examined at bedside. She is comfortable; sitting up. She is not in any distress. No episode of episode of confusion/unawareness Review of Systems Review of Systems: All systems reviewed & are unremarkable except as noted in Subjective Physical Exam Physical Exam: General Appearance: Sitting up in bed, alert. Well-appearing, no acute distress. Respiratory: Normal respiratory effort, lungs clear to auscultation, no wheeze, rales, rhonchi. No accessory muscle use. Cardiovascular: Regular rate, rhythm, no murmur, normal peripheral pulses, no BLE edema. Vessels: No JVD. Chest: Normal inspection of chest. Abdomen/GI: Normal bowel sounds, soft, nontender, no hepatosplenomegaly. No rebound or guarding. Extremities/Musculoskeletal: No cyanosis or clubbing, extremities motor strength 5/5. Lymphedema present in bilateral lower extremities. Tenderness to palpation of R anterior rodriges. Neurologic: PERRL, EOMI, accommodation nl, no face palsy, no dysarthria, CN's II-XI intact bilaterally and moves all extremities. Psychiatric: AOX 3. Euthymic affect. Skin: No rashes, no bruises warm/dry. Results & Data Results & Data Vital Signs (Past 12 Hours) Vital Signs Temp Pulse Pulse Resp BP Pulse Ox O2 Del Method 09/27/23 16:02 36.8 C 87 16 130/61 97 Room Air 09/27/23 12:00 36.7 C 77 18 128/70 96 Room Air 09/27/23 08:34 36.6 C 74 20 114/72 93 Room Air 09/27/23 08:00 79
[2023-09-27] MEDS: MELATONIN 3 MG TAB PO PRN (22:48)
[2023-09-27] MEDS: MELATONIN 3 MG TAB PO STA (23:03)
--- NOTE | 2023-09-28 11:02 | Electroencephalogram ---
EEG Procedure Note Date of Service September 28, 2023 Start / End Times Start Time: 06:19 End Time: 06:[address] Ashley Silva History A 62 year old female with altered sensorium. EEG performed for evaluation of epileptiform activity. Home Medication List Medication Instructions Recorded Confirmed Type semaglutide (weight loss) 2.4 2.4 mg subcut WK 09/26/23 09/26/23 History mg/0.75 mL subcutaneous pen injector (Wegovy) sennosides 8.6 mg capsule (senna) 8.6 mg PO HS 09/26/23 09/26/23 History melatonin 10 mg PO HS PRN Insomnia 09/27/23 09/27/23 History Inpatient Medication List Acetaminophen (Acetaminophen 325 Mg Tab) 650 mg PO Q4H PRN PRN Reason: Pain or Fever Stop: 10/26/23 16:04 Last Admin: 09/27/23 19:49 Dose: 650 mg Documented By: AMMaicol Admin: 09/27/23 08:26 Dose: 650 mg Documented By: Admin: 09/26/23 21:20 Dose: 650 mg Documented By: KHADAR Capsaicin (Capsaicin Cr 0.075% 60 Gm Tube) 1 appln EXT BID [facility], 1928–1983 Stop: 10/27/23 12:59 Last Admin: 09/28/23 08:52 Dose: Not Given Documented By: Admin: 09/27/23 19:50 Dose: 1 appln Documented By: Admin: 09/27/23 13:58 Dose: 1 appln Documented By: MTN Heparin Sodium (Porcine) (Heparin Sod 5,000 Unit/0.5 Ml Vial) 5,000 units SQ Q8 SEBLE Stop: 10/26/23 16:04 Last Admin: 09/28/23 06:50 Dose: 5,000 units Documented By: Admin: 09/27/23 21:21 Dose: 5,000 units Documented By: AMMaicol Admin: 09/27/23 15:01 Dose: 5,000 units Documented By: Admin: 09/27/23 01:19 Dose: Not Given Documented By: Admin: 09/26/23 21:23 Dose: Not Given Documented By: Admin: 09/26/23 18:08 Dose: Not Given Documented By: MTN Melatonin (Melatonin 3 Mg Tab) 3 mg PO HS PRN PRN Reason: Sleep Stop: 10/27/23 22:39 Last Admin: 09/27/23 22:48 Dose: 3 mg Documented By: KHADAR Sennosides (Senna 8.6 Mg Tab) 8.6 mg PO HS SEBLE Stop: 10/26/23 20:59 Last Admin: 09/27/23 19:50 Dose: 8.6 mg Documented By: Admin: 09/26/23 21:22 Dose: 8.6 mg Documented By: KHADAR Discontinued Medications Acetaminophen (Acetaminophen 500 Mg Tab) 1,000 mg PO NOW STA Stop: 09/26/23 14:52 Last Admin: 09/26/23 15:35 Dose: 1,000 mg Documented By: KATHY Gadobutrol (Gadobutrol 65ml Vial) 8.8 ml IV ONCE ONE Stop: 09/26/23 20:13 Last Admin: 09/26/23 20:13 Dose: 8.8 ml Documented By: KRISTIAN Lorazepam 1 mg/ Syringe 1 mls @ 2 mls/min IV ONE ONE Stop: 09/26/23 19:01 Last Admin: 09/26/23 19:35 Dose: 2 mls/min Documented By: KHADAR Ioversol (Optiray 320 125ml) 120 ml IV ONCE ONE Stop: 09/26/23 12:17 Last Admin: 09/26/23 12:17 Dose: 120 ml Documented By: ANIRUDH Melatonin (Melatonin 3 Mg Tab) 6 mg PO NOW STA Stop: 09/27/23 22:54 Last Admin: 09/27/23 23:03 Dose: 6 mg Documented By: KHADAR Oxycodone HCl (Oxycodone Hcl Ir 5 Mg Tab (Immediate Release)) 2.5 mg PO Q4H PRN PRN Reason: Severe Pain (Scale 7, 8, 9,10) Stop: 10/10/23 16:04 Last Admin: 09/27/23 02:39 Dose: 2.5 mg Documented By: Admin: 09/26/23 22:30 Dose: 2.5 mg Documented By: KHADAR Description This is a 21 electrode EEG with a single channel dedicated to limited EKG. The electrodes were placed in accordance with the International 10-20 system. REPORT: At the onset of the EEG, the patient is awake. The background activity consist of 9 Hz, persistent, posteriorly dominant, moderate amplitude, symmetric and rhythmic activity that is reactive to eye opening. Anteriorly, it consist of a mixture of low voltage indeterminate activity and 15-25 Hz, persistent, low amplitude, symmetric and rhythmic activity. Stepwise intermittent photic stimulation (1-21 Hz) does not induce any abnormalities. Drowsiness is characterized by low amplitude mixed frequency activity, roving eye movements, and decreased eye blinking and muscle artifact. Stage II sleep is characterized by sleep spindles.. Interpretation IMPRESSION: This is a normal awake and asleep routine EEG. There is no evidence of focal slowing or epileptiform activity.
--- NOTE | 2023-09-28 15:22 | Discharge Summary ---
Date of Service September 28, 2023 Admission HPI Per Admitting Provider Jimi Foster is a 62y/o F with PMHx of pure hypercholesterolemia, vitamin D deficiency/vitamin B12 deficiency s/p gastric bypass, intestinal postoperative nonabsorption syndrome, iron deficiency anemia, chronic fatigue syndrome, degenerative disc disease, bilateral hip/knee replacements, medical marijuana use and lymphedema who presented to the ED this morning for evaluation of new- onset confusion. History obtained from patient, and associated ED/PCP/specialty records.Patient states that she was leaving an HAND SHAKER appointment this morning, and suddenly became confused whilst driving. Patient mentions that she was a lready planning on coming to the ED after her appointment in order to have her right leg examined d/t concern of a potential DVT. Patient reports that she has had right leg pain x 3 days, and that the pain is now localized to her right rodriges region. Patient mentions that the pain was previously radiating up from her right rodriges to her right anterior thigh, but has since been centralized to her right rodriges region for the past day. She describes this pain as burning in quality, and states that her right calf region has been swollen for the past 3 days as well. However, she denies any associated erythema or warmness to touch of her right lower leg. In regard to her confusion, patient states that she was feeling fine during her appointment and suddenly became confused while driving. She reports that she didn't know where she was going or what she was exactly doing during this momentary episode of generalized confusion; however, the episode quickly resolved and she was able to navigate accordingly to the hospital. Patient states that she had a previous neurological episode last (09/20) where she was sitting talking to her and suddenly felt "off." She describes rapid onset of a headache with associated scalp paraesthesias and generalized weakness lasting approximately 90 minutes. Patient states that she also had one episode of expressive aphasia during this "episode," and subsequently had to lie down in bed for the symptoms to resolve themselves w/out any medical or pharmaceutical intervention. Patient denies seeking any medical consultation at that time. No other neurological deficits were noted during that episode either, per the patient. She currently endorses a headache, but denies any vision changes or episodes of N/V. Patient does mention chronic constipation issues [takes senna on a daily basis], but denies any hematochezia or melena. Patient also denies any urinary issues, abdominal pain/discomfort and back pain. Patient endorses no issues with ambulation at home, and denies any recent falls. Patient does use medical marijuana, in the form of gummies, to help her sleep. Patient denies any recent head trauma or illnesses. Admission Exam Per Admitting Provider General Appearance: Sitting up in bed, alert. Well-appearing, no acute distress. Head: Normocephalic, atraumatic. Eyes: Normal inspection, PERRL, conjunctivae normal, anicteric sclerae. ENT: External ear and nose normal, oropharynx normal. Neck: Normal visual inspection, trachea midline, no thyromegaly. Respiratory: Normal respiratory effort, lungs clear to auscultation, no wheeze, rales, rhonchi. No accessory muscle use. Cardiovascular: Regular rate, rhythm, no murmur, normal peripheral pulses, no BLE edema. Vessels: No JVD. Chest: Normal inspection of chest. Abdomen/GI: Normal bowel sounds, soft, nontender, no hepatosplenomegaly. No rebound or guarding. Extremities/Musculoskeletal: No cyanosis or clubbing, extremities motor strength 5/5. Lymphedema present in bilateral lower extremities. Tenderness to palpation of R anterior rodriges. Neurologic: PERRL, EOMI, accommodation nl, no face palsy, no dysarthria, CN's II-XI intact bilaterally and moves all extremities. Psychiatric: A+O to person/place and situation (difficulty finding month). Euthymic affect. Skin: No rashes, no bruises warm/dry. Principal Diagnosis Transient confusion, Discharge Exam General Appearance: Sitting up in bed, alert. Well-appearing, no acute distress. Respiratory: Normal respiratory effort, lungs clear to auscultation, no wheeze, rales, rhonchi. No accessory muscle use. Cardiovascular: Regular rate, rhythm, no murmur, normal peripheral pulses, no BLE edema. Vessels: No JVD. Chest: Normal inspection of chest. Abdomen/GI: Normal bowel sounds, soft, nontender, no hepatosplenomegaly. No rebound or guarding. Extremities/Musculoskeletal: No cyanosis or clubbing, extremities motor strength 5/5. Lymphedema present in bilateral lower extremities. Tenderness to palpation of R anterior rodriges. Neurologic: PERRL, EOMI, accommodation nl, no face palsy, no dysarthria, CN's II-XI intact bilaterally and moves all extremities. Psychiatric: AOX 3. Euthymic affect. Skin: No rashes, no bruises warm/dry. Discharge Data Allergies Allergy/AdvReac Type Severity Reaction Status Date / Time azithromycin Allergy Unknown Rash Verified 09/26/23 18:59 ciprofloxacin Allergy Unknown Unknown Verified 09/26/23 18:59 Sulfa (Sulfonamide Allergy Unknown Unknown Unverified 09/26/23 18:59 Antibiotics) Consultations 09/26/23 13:24 ED Decision to Admit Stat 09/26/23 15:02 Consult Neurology Routine Ordered Studies 09/26/23 10:41 CT head/brain wo con Stat 09/26/23 11:30 CT angio neck with con Stat 09/26/23 11:31 CT angio head w con Stat 09/26/23 13:06 US venous doppler LE RT Stat 09/26/23 16:05 MR brain wo/w con Routine Hospital Course (1) Transient confusion: Amelia Foster is a 62y/o F with PMHx of hypercholesterolemia, vitamin D deficiency/vitamin B12 deficiency s/p gastric bypass, intestinal postoperative nonabsorption syndrome, iron deficiency anemia, chronic fatigue syndrome, degenerative disc disease, bilateral hip/knee replacements, medical marijuana use and lymphedema who presented to the ED for evaluation of new-onset confusion. Neck CTA showed no occlusion, stenosis or dissection in the major cervical a rteries. Head CTA showed no large vessel occlusion and no intracranial hemorrhage. Head CT was benign, and chest x-ray displayed no acute process. MRI brain does not show any acute stroke. No intracranial lesions LDL- 67 mg/dl. HbA1c- 5.1% Discussed with neurology; recommended to obtain EEG, seizure precautions and telemetry monitoring. Also recommends no driving per [place] state law. EEG was done which did not show any abnormality. Patient did not have any episode of unawareness during the hospitalization. Appointment with primary care doctor and neurology was set up at discharge. Please note the above document was generated using voice recognition software. It may contain grammatical, syntax or spelling errors. Any formal questions or concerns about the content, text or information contained within the body of this dictation should be directly addressed to the provider for clarification Total Time Total Time Spent Total Time Spent (In Minutes): 35 Total Time Includes: Examination of the Patient, Discharge Planning, Medication Reconciliation, Communication With Other Providers and Other Discharge Plan Discharge Items Patient Disposition: Home - Self-Care Reason For Visit: NEUROLOGICAL DEFICITS Discharge Diagnosis: Transient episode of unawareness Activity: Resume your previous activity Non-emergency contact: Primary Care Provider Call non-emergency contact if: you have any medication questions and your symptoms worsen Follow-up/Referrals: Katarina Jacques PA-C [Physician Geriatrics Physician] - (Date & Time 10/03/2023 2:00 PM Provider Katarina Jacques PA-C Department Neurology [facility] ) Amari Quesada PA-C [Primary Care Provider] - (Date & Time 10/02/2023 5:20 PM Provider Amari Quesada PA-C Department [facility] ) Diet: Regular Addtl Attending Provider Instructions: You were admitted to the hospital due to transient episode of unawareness. You underwent MRI of the brain which did not show any acute stroke or abnormality. You also underwent EEG which was normal. Blood work during the hospitalization did not show any abnormality that will result in the symptoms. You have follow-up set up with your primary care doctor and neurologist next week. Pending Studies at Discharge: No Stand-Alone Forms: My [facility] [employer], Smoking Cessation Medications and DC Order Prescriptions: Continued Wegovy 2.4 mg/0.75 mL pen injector 2.4 mg SUBCUT WK Rx Instructions: has been taking for 5 weeks senna 8.6 mg Capsule 8.6 mg PO HS melatonin 10 mg PO HS MDD 10 PRN (Reason: Insomnia) Discharge Orders: Discharge Order (Routine); Ordered 09/28/23 Ordered By: Jaziel Doe/Other Patient Handouts: Risk Factors for Stroke Admission Data Admit Date/Time: 09/26/23 13:57 Attending Provider: Jaziel Ramirez Admit Provider: Ivonne Marshall Primary Care Provider: Amari Quesada Other Providers: Erick Ruano; Ivonne Marshall Other Interventions: Discharge Summary Assessment (RN) Last Done: 09/28/23 12:49
--- OUTSIDE RECORDS SUMMARY | 2023-09-28 22:37 | External Medical Summary | Summary of Care ---
Author Name Unknown Organization [facility] [address] [place] [address] Phone [phone] Care Team Providers Care Pickling Operator Name Role Phone Amari Quesada PA-C Primary Care Provide r Reason for Visit * Reason Comments Treatment Venofer Encounter Details Date Type Department Care Team (Latest Contact Info) Description 09/12/2023 1:00 PM EDT Hem/Onc Treatment Hematology/Oncolog y Treatment, [address] [address] [facility], Chair Hem Onc [address] [place] [address] Intestinal postoperative nonabsorption*; Iron deficiency anemia, unspecified iron deficiency anemia type Allergies Active Allergy Reactions Criticality Noted Date Comments Ciprofloxacin 04/24/2014 Sulfa Antibiotics Unknown 07/20/2018 Azithromycin Rash 07/20/2018 documented as of this encounter (statuses as of 09/27/2023) Medications Medication Sig Dispensed Refills Start Date End Date Status Nystatin 131036 UNIT/GM External Powder (Nystop)Indicati ons:Vulvar irritation Apply [...] by mouth in the morning. 0 Active Cyclobenzaprine HCl 10 MG Oral Tablet (Flexeril)Indica tions:Acute bilateral low back pain without sciatica Take 1 Tablet by mouth at bedtime as needed for Muscle spasms. 30 Tablet 2 3 09/26/19 24 Discontinued(Med ication List Clean Up) Wegovy 1.7 MG/0.75ML Subcutaneous Solution Auto-injector ([facility])Indic ations:Abnormal weight gain,S/P gastric bypass Inject 1.7 mg under the skin once a week for 28 days. 3 mL 1 4 09/14/19 24 Discontinued Naltrexone HCl 50 MG Oral Tablet (Revia)Indicatio [...] 60 Tablet 2 4 09/26/19 24 Discontinued(Med Style[employer] by [employer] List Clean Up) Hospital, Clinic, or Other Facility Administered Medication Ordered Dose Route Frequency Start Date End Date Status vitamin b-12 (Cyanocobalamin) inj 1,000 mcgIndications:S/P gastric bypass 1000 mcg IM [id number] 03/31/2023 03/01/2024 Active documented as of this encounter (statuses as of 09/27/2023) Active Problems Problem Noted Date Diagnosed Date Iron deficiency anemia 08/21/2023 Intestinal postoperative nonabsorption 4 Fibroids, submucosal 06/10/2022 Overview: Had follow up with [facility]. 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 Chronic fatigue syndrome 02/08/2016 Pure hypercholesterolemia 02/08/2016 Vitamin D deficiency 02/08/2016 documented as of this encounter (statuses as of 09/27/2023) Resolved Problems Problem Noted Date Diagnosed Date Resolved Date Other specified arthritis, left knee 09/21/2021 12/08/2021 Bilateral chronic knee pain 07/05/2021 12/08/2021 Primary osteoarthritis of right hip 02/04/2021 04/13/2022 Nasal lesion 07/20/2018 06/10/2022 Anxiety 08/05/2014 12/08/2021 documented as of this encounter (statuses as of 09/27/2023) Immunizations Name Administration Dates Next Due COVID-19 [...] Kennedy RN - 09/12/2023 12:55 PM EDT [place] # 10 Pt tolerated Venofer infusion well. Patient left IVC by ambulating. Unaccompanied. Voiced no complaints. Fide Kennedy RN 09/12/2023 [facility] Nursing Care Plan ID is not set. [...] Care Team (Late st Contact Info) Description 10/02/2023 5:20 PM EDT Office Visit [facility] [address] [place] [address] Amari Quesada PA-C [address] [place] [address] 10/03/2023 2:00 PM EDT Office [facility] [address] [place] [address] Katarina Jacques PA-C [address] [place] [address] 10/25/2023 9:40 AM EDT [facility] [address] [place] [address] Alicia Moran CRNP [address] [place] [address] 01/10/2024 2:00 PM EDT Office Visit Gynecology/Obstetrics [facility] [address] [place] [address] Jennifer Torres PA-C [address] [place] [address] 02/27/2024 10:20 AM EDT Office Visit [facility] [address] [place] [address] Amari Quesada PA-C [address] [place] [address] Health Maintenance Due Date Last Done Comments [...] mL/hr documented in this encounter Care Teams Pickling Operator Relationship Specialty Start Date End Date Amari Quesada PA-C [facility] [place] [phone] PCP - General Physician Senior Controls Engineer 07/31/23 documented as of this encounter
== END 2023-09-28 13:09 | disposition home or self-care (01) ==
LOC: EDINP 10:32 → ED 10:32 → SUATTDRO 13:57 → 2S 16:11